=== PATIENT | male | born 1935 | race Caucasian/White ===

== ENCOUNTER 2016-12-21 21:11 | Observation (INO) | payer MEDICARE, OTHER ==
[2016-12-21] MEDS ORDERED: DILTIAZEM HCL 5 MG/ML VIAL IV ONE ×3 (21:42→23:49)
--- NOTE | 2016-12-21 21:44 | ERNOTE ---
Dyspnea - General Presenting Symptoms: shortness of breath Time Seen by Provider: 12/21/16 21:35 Source: patient Exam Limitations: no limitations - Immun/Allergies/Home Medications Immunizations: IMMUNIZATION HX Immunizations Up to Date Yes History of Influenza Vaccine Yes Allergies/Adverse Reactions: Allergies No Known Allergies Allergy (Verified 12/26/16 06:57) Home Medications: HOME MEDICATIONS Omeprazole [Prilosec] 40 mg PO DAILY 09/18/15 [Last Taken Unknown] Simvastatin [Zocor] 40 mg PO HS 09/18/15 [Last Taken Unknown] Tamsulosin HCl [Flomax] 0.4 mg PO BID 09/18/15 [Last Taken Unknown] Tiotropium [place] [Spiriva] 1 cap IH DAILY 09/18/15 [Last Taken Unknown] Acetaminophen [Tylenol] 650 mg PO QID PRN #1 tablet 09/22/15 [Last Taken Unknown ] Finasteride [Proscar] 5 mg PO DAILY 12/21/16 [Last Taken Unknown] Losartan Potassium [Cozaar] 25 mg PO DAILY 12/21/16 [Last Taken Unknown] Amiodarone HCl [Cordarone] 2 tab PO TID #100 tablet 12/22/16 [Last Taken Unknown ] Budesonide [Pulmicort Respules] 0.25 mg IH BIDRT vial.[facility] 12/22/16 [Last Taken Unknown] Carvedilol [Coreg] 25 mg PO BID #60 tablet 12/22/16 [Last Taken Unknown] Fluticasone Propionate [Flonase] 1 spray NS DAILY 12/22/16 [Last Taken Unknown] Ipratropium [place] [Atrovent] 0.5 mg IH Q6HRT vial.[facility] 12/22/16 [Last Taken Unknown] Vardenafil HCl [Levitra] 20 mg PO DAILY 12/22/16 [Last Taken Unknown] Warfarin Sodium [Jantoven] 5 mg PO SUTUWEFRSA 12/22/16 [Last Taken Unknown] Warfarin Sodium [Jantoven] 6 mg PO MOTH 12/22/16 [Last Taken Unknown] Azithromycin [Zithromax] 500 mg PO NOW #6 tab 12/26/16 [Last Taken Unknown] Furosemide [Lasix] 40 mg PO DAILY #30 tablet 12/26/16 [Last Taken Unknown] predniSONE [Prednisone] 3 tab PO BID #30 tab 12/26/16 [Last Taken Unknown] - History of Present Illness Narrative: increasing shortness of breath over 2-3 days. "feels like I'm under water" Severity: moderate Initiating event: Reports: unknown Frequency of episodes: Reports: occassional episodes Modifying Factors (Worsens): Reports: activity Associated Symptoms-Dyspnea: Denies: chest pain/discomfort Review of Systems - Review of Systems Constitutional: Absent: recent illness, fever EYE: Present: no symptoms reported ENT: Present: no symptoms reported Respiratory: Present: shortness of breath. Absent: cough Cardiology: Absent: chest pain, palpitations Gastrointestinal/Abdominal: Absent: nausea, vomiting Genitourinary: Present: no symptoms reported Musculoskeletal: Present: no symptoms reported Skin: Present: no symptoms reported Neurological: Present: no symptoms reported Endocrine: Present: no symptoms reported Hematologic/Lymphatic: Present: no symptoms reported Psych: Present: no symptoms reported - Patient's Past Medical History Patient History - Medical: GERD Patient History - Cardiac/Respiratory: COPD Patient History - Cancer: Prostate Patient History - Surgical Procedures: Cataracts, Colonoscopy, T & A, Other - TURP, radium implants into prostate gland. Patient History - Other: None - Family History Mother Family History - Medical: Family History - Cardiac/Respiratory: Hypertension Father Family History - Medical: , Alzheimer's Disease - Social History Living Situations: spouse Abuse History: No History of abuse Psych History: No pertinent hx Smoking Status: Former smoker Alcohol Use: none Drug Use: none - Immunizations Immunizations Up to Date: Yes History of Influenza Vaccine: Yes Physical Exam - Physical Exam General Appearance: Present: wd/wn, alert, mild distress Eye Exam: Normal inspection: bilateral Ears, Nose, Throat: Present: normal ENT inspection, normal pharynx Neck: Present: normal inspection, nontender, supple Respiratory: Present: no respiratory distress, lungs clear Cardiovascular/Chest: Present: tachycardia, irregularly irregular Gastrointestinal/Abdominal: Present: normal bowel sounds, nontender, nondistended, soft Back Exam: Present: normal inspection, normal range of motion Extremity Exam: Present: normal inspection, non-tender, no edema Neurological Exam: Present: alert, oriented, no motor/sensory deficits Skin Exam: Present: normal color, warm/dry ED Progress - Results and Orders Patient's Lab Results:: I have reviewed the patient's lab results. Results and Orders: Laboratory Tests 12/21/16 12/21/16 21:45 21:53 WBC 11.9 H Hgb 12.2 L Hct 36.8 L Plt Count 206 Neutrophils % 78.6 H Sodium 140 Potassium 4.6 Chloride 105 Carbon Dioxide 24.4 Anion Gap 15.2 H BUN 27 H Creatinine 1.28 Est GFR (Non-Af Amer) 57 L BUN/Creatinine Ratio 21.1 Random Glucose 161 H Calcium 8.8 Total Bilirubin 1.0 AST 22 ALT 33 Alkaline Phosphatase 63 Troponin I Less than 0.017 B-Natriuretic Peptide 6034 H Total Protein 6.9 Albumin 3.7 - Vital Signs Patient's Vital Signs:: I have reviewed the patient's vital signs. Vital Signs: Vital Signs 12/21/16 21:17 Temperature 36.8 C Pulse Rate 155 H Respiratory 32 H Rate Blood Pressure 116/89 O2 Sat by Pulse 90 Oximetry - EKG EKG: atrial fibrillation - w/ RVR at 110-130, LBBB EKG read: Interp. by me - Progress/Reassessment Chief Complaint: Dyspnea Progress:: Improved Progress Note-Subjective: 12/21/16 21:54 Vardenafil interaction with cardizem was reported upon ordering cardizem. pt states he hasn't taken the vardenafil for weeks. BP has decreased from presentation. Cardizem order put on hold, 500 mL bolus ordered 12/21/16 23:55 Pt's blood pressure has been running 90-100/ 40's HR getting up to 150's at times and down to 110's. Will give 5 mg cardizem and monitor BP and HR. 12/22/16 00:10 12/22/16 00:19 BP 109/52 hr 85-100. spoke with Frank WATSONP hospitalist. she agrees with SCU admit for the patient 12/28/16 06:14 Departure Clinical Impression: Atrial fibrillation Qualifiers: Atrial fibrillation type: paroxysmal Qualified Code(s): I48.0 - Paroxysmal atrial fibrillation - Departure Condition: Good
--- OUTSIDE RECORDS SUMMARY | 2016-12-21 21:49 | XMS REPORT | Continuity of Care Document ---
:1935 Author Organization [facility] ([facility]) Address [address] [place] [address] Phone [phone] Care Team Providers Name Role Phone Frantz Patricio Primary Care Provider [phone] Source Comments This disclosure is being made pursuant to the Care Everywhere program, applicable federal and state laws, and may not contain all informaitonavailable regarding this patient.[facility] ([facility]) Active Allergies and Adverse Reactions Allergen Noted Date Severity Reactions Comments No Known Drug Allergies 12/09/2008 Current Medications Prescription Sig. Disp. Refills Start Date End Date Status ATENOLOL PO Take 25 mg by mouth 2 Active times daily. TIOTROPIUM BROMIDE use by inhalation at Active (SPIRIVA WITH bedtime. HANDIHALER INH) diltiazem 240 mg ER Take 240 mg by mouth Active capsule daily. fluticasone (FLONASE) use 1 [place] into the Active 50 mcg/Actuation nasal nose 2 times daily. spray fluticasone (FLOVENT Use 1 Puff by Active HFA) 220 mcg/actuation inhalation every 12 inhaler hours as needed. losartan 50 mg tablet Take 50 mg by mouth Active daily. tadalafil (CIALIS) 20 Take 20 mg by mouth Active mg tablet as needed. Indications: Erectile Dysfunction simvastatin 40 mg Take 40 mg by mouth Active tablet every evening. tamsulosin 0.4 mg ER Take 0.4 mg by mouth Active capsule daily. finasteride (PROSCAR) 5 Take 5 mg by mouth Active mg tablet daily. Active Problems Problem Noted Date Erectile dysfunction 11/04/2011 Prostate cancer 11/04/2011 Retinal detachment, left 07/31/2009 Glaucoma 05/02/2009 Cystoid macular edema 04/16/2009 Overview: Formatting of this note may be different from the original. 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 02/13/2008 Social History Tobacco Use Types Packs/Day Years Used Date Former Smoker 1 50 Quit: 08/14/1994 Comments:emphazema Alcohol Use Drinks/Week oz/Week Comments Yes 4 Cans of beer 2.0 Last Filed Vital Signs Vital Sign Reading Time Taken Blood Pressure 105/74 04/04/2012 1:38 PM CDT Pulse 76 04/04/2012 1:38 PM CDT Temperature 36.6 C (97.9 F) 04/04/2012 1:38 PM CDT Respiratory Rate 20 04/04/2012 1:38 PM CDT Height 1.676 m (5' 6") 04/04/2012 1:38 PM CDT Weight 79.379 kg (175 lb) 04/04/2012 1:38 PM CDT Body Mass Index 28.26 04/04/2012 1:38 PM CDT Oxygen Saturation 91% 04/04/2012 1:38 PM CDT Plan of Care Health Maintenance Due Date Last Done Comments Hepatitis B Vaccine (1 of 3 - Primary Series) 1935 Tdap Vaccine 1944 Lipid Disorder Screening 1951 Td Vaccine 1953 Colonoscopy 1983 Zoster Vaccine 1993 Pneumococcal Vaccine (1 of 2 - PCV13) 1998 Influenza Vaccine: Seasonal (#1) 03/14/2016 Results from Last 3 Months Not on file
[2016-12-21 21:53] LABS: Hematocrit 36.8 % (42.0-52.0); Hemoglobin 12.2 gm/dL (13.5-18.0); Mean Cell Volume 87.2 fl (78-100); Mean Corpuscular Hemoglobin 28.9 pg (27-31); Mean Corpuscular Hgb Conc 33.2 g/dl (32-36); Mean Platelet Volume 10.5 fl (6.0-9.5); Neutrophil # 9.3 K/mm3 (1.3-6.0); Neutrophil % 78.6 % (42-75.0); Platelet Count 206 K/mm3 (150-450); Red Blood Count 4.22 M/mm3 (4.7-6.0); Red Cell Distribution Width 13.6 % (11.5-14.0); White Blood Count 11.9 K/mm3 (4.0-10.5)
[2016-12-21] MEDS ORDERED: NORMAL SALINE 500 ML IV ONE ×2 (21:57→22:34)
[2016-12-21 22:15] LABS: ALT 33 U/L (19-67); AST 22 U/L (0-48); Albumin * 3.7 gm/dl (3.4-5.0); Alkaline Phosphatase * 63 U/L (50-170); Anion Gap 15.2 mmol/L (6.8-13.8); BNP * 6034 pg/mL (5-650); BUN/Creatinine Ratio 21.1 (9.0-21.6); Blood Urea Nitrogen 27 mg/dL (6-23); Ca. Corrected For Albumin 8.7 mg/dL (8.4-10.2); Calcium * 8.8 mg/dL (7.9-10.9); Carbon Dioxide 24.4 mmol/L (24-32.6); Chloride 105 mmol/L (97-106); Glucose * 161 mg/dL (70-110); Potassium 4.6 mmol/L (3.4-4.6); Sodium 140 mmol/L (132-142); Total Protein 6.9 gm/dL (6.2-8.2)
[2016-12-21 22:17] LABS: Troponin I Less than 0.017 ng/ml (0.00-0.10)
[2016-12-22] MEDS ORDERED: DILTIAZEM HCL 125 MG in DEXTROSE 5 % IN WATER 100 ML IV PRN ×2 (00:07)
--- OUTSIDE RECORDS SUMMARY | 2016-12-22 00:33 | XMS REPORT | Continuity of Care Document ---
:1935 Author Organization [facility] ([facility]) Address [address] [place] [address] Phone [phone] Care Team Providers Name Role Phone Frantz Patricio Primary Care Provider [phone] Source Comments This disclosure is being made pursuant to the Care Everywhere program, applicable federal and state laws, and may not contain all informaitonavailable regarding this patient.[facility] ([facility]) Active Allergies and Adverse Reactions Allergen [...] Active capsule daily. fluticasone (FLONASE) use 1 [place] into the Active 50 mcg/Actuation nasal nose [...]
[2016-12-22] MEDS ORDERED: FUROSEMIDE 10 MG/ML VIAL IV STA (02:10)
[2016-12-22] MEDS ORDERED: FUROSEMIDE 10 MG/ML VIAL ONE (02:10)
[2016-12-22] MEDS ORDERED: ALBUTEROL SULFATE/IPRATROPIUM 3 ML NEBU IH STA (02:16)
--- NOTE | 2016-12-22 02:48 | HP ---
<Mayito Joel - Last Filed: 12/22/16 03:54> Chief Complaint - Chief Complaint Date of Service: 12/22/16 Time of Service: 02:40 Chief Complaint: shortness of breath cough, wheezing History of Present Illness: 81 years old male adm to the hospital with reports of shortness of breath on exertion, productive cough with clear sputum and wheezing that have gotten worst over the past few days. pt stated he usually play pool for about 4 hours, but lately he hardly can continue for an hour or less.It has gotten much harder to breath and talk, he has used his inhalers at home without relief. He got concern because the breathing got worst so he came to the ER. In ER EKG_ A-fib RVR, he was initiated on cardizem drip cardiac markers negative x1, BNP > 6K, BUN/ Cre 27/1.28. On adm he was in respiratory distress and reported not been able to breath. CXR: Pulmonary edema, he was given total Lasix 60 mg IV x1 with 750ml urine in 1 hr, supplemented oxygen and nebulizer treatment with Atrovent and pulmicort. Plan discussed with assembler semiconductor attending. PMH significant for CHF, A -fib (on Coumadin), COPD, CKD III. Plan of care discussed with pt he verbalized understanding and agrees. - Patient's Past Medical History Patient History - Medical: GERD, Renal Failure - stage III, Other - BPH Patient History - Cardiac/Respiratory: Atrial Fibrillation - on coumadin, Asthma , CHF - 09/30 2 d Echo EF45-50%, COPD, Home O2 Use Patient History - Cancer: Prostate Patient History - Surgical Procedures: Cataracts, Colonoscopy, T & A, Other - TURP radiation implant into prostate gland Patient History - Other: None - Family History Mother Family History - Medical: Family History - Cardiac/Respiratory: Hypertension Father Family History - Medical: , Alzheimer's Disease - Social History Living Situations: alone Abuse History: No History of abuse Psych History: No pertinent hx Smoking Status: Former smoker Have you smoked in the past 12 months: No Alcohol Use: none Drug Use: none - Immunizations Immunizations Up to Date: Yes History of Influenza Vaccine: Yes Review Of Systems (GEN) - Review of Systems Generalized/Overall Review: Present: No Symptoms Reported EENTM: Present: No Symptoms Reported Respiratory: Present: Cough, Shortness of Breath, Orthopnea, Wheezing Cardiac: Present: Edema - Trace BLLE Abdominal: Present: No Symptoms Reported Genitourinary: Present: No Symptoms Reported Musculoskeletal: Present: No Symptoms Reported Neurological: Present: No Symptoms Reported Skin: Present: No Symptoms Reported Endocrine: Present: No Symptoms Reported Allergies/Adverse Reactions: Allergies Allergy/AdvReac Type Severity Reaction Status Date / Time No Known Allergies Allergy Verified 10/09/15 18:57 Home Medications: HOME MEDICATIONS Omeprazole [Prilosec] 40 mg PO DAILY 09/18/15 [Last Taken Unknown] Simvastatin [Zocor] 40 mg PO HS 09/18/15 [Last Taken Unknown] Tamsulosin HCl [Flomax] 0.4 mg PO BID 09/18/15 [Last Taken Unknown] Tiotropium [place] [Spiriva] 1 cap IH DAILY 09/18/15 [Last Taken Unknown] Acetaminophen [Tylenol] 650 mg PO QID PRN #1 tablet 09/22/15 [Last Taken Unknown ] Carvedilol [Coreg] 25 mg PO BID 12/21/16 [Last Taken Unknown] Finasteride [Proscar] 5 mg PO DAILY 12/21/16 [Last Taken Unknown] Losartan Potassium [Cozaar] 25 mg PO DAILY 12/21/16 [Last Taken Unknown] Fluticasone Propionate [Flonase] 1 spray NS DAILY 12/22/16 [Last Taken Unknown] Warfarin Sodium [Jantoven] 5 mg PO SUTUWEFRSA 12/22/16 [Last Taken Unknown] Warfarin Sodium [Jantoven] 6 mg PO MOTH 12/22/16 [Last Taken Unknown] Exam - Exam Vital Signs: Vital Signs - Last Taken Temp 36.6 C 12/22/16 01:27 Pulse 130 H 12/22/16 02:29 Resp 25 H 12/22/16 02:29 BP 135/91 12/22/16 01:27 Pulse Ox 91 12/22/16 02:24 Constitutional: Present: Alert, Oriented x3, Cooperative, Well developed, Acute distress, Elderly ENT Exam: Present: moist mucous membranes Eye Exam: bilateral eye: PERRL Neck: Present: non-tender Back Exam: Present: normal inspection Breasts: Present: Exam deferred Respiratory: Present: respiratory distress, wheezing Cardiovascular/Chest: Present: normal peripheral pulses, tachycardia, irregularly irregular, edema Peripheral Pulses: dorsalis-pedis (R): 3+, dorsalis-pedis (L): 3+ Abdomen: Present: Normal bowel sounds, soft, nontender, nondistended /Rectal: Present: Exam deferred Extremity: Present: normal range of motion, non-tender, normal inspection, lower extremity edema - Trace, pedal edema Skin Exam: Present: normal color, warm/dry, no cyanosis Neurologic: Present: oriented x 3 Appearance: Present: appropriate appearance Eye contact: Present: cooperative Thoughts: Present: normal thought pattern, no apparent hallucination Diagnostic Studies: Laboratory Results WBC 11.9 K/mm3 (4.0-10.5) H 12/21/16 21:45 RBC 4.22 M/mm3 (4.7-6.0) L 12/21/16 21:45 Hgb 12.2 gm/dL (13.5-18.0) L 12/21/16 21:45 Hct 36.8 % (42.0-52.0) L 12/21/16 21:45 MCV 87.2 fl (78-100) 12/21/16 21:45 MCH 28.9 pg (27-31) 12/21/16 21:45 MCHC 33.2 g/dl (32-36) 12/21/16 21:45 RDW 13.6 % (11.5-14.0) 12/21/16 21:45 Plt Count 206 K/mm3 (150-450) 12/21/16 21:45 MPV 10.5 fl (6.0-9.5) H 12/21/16 21:45 Immature Gran % (Auto) 0.30 % (0.001-0.429) 12/21/16 21:45 Immature Gran # (Auto) 0.04 K/mm3 (0.000-0.0310) H 12/21/16 21:45 Neutrophils % 78.6 % (42-75.0) H 12/21/16 21:45 Lymphocytes % 11.5 % (20-51) L 12/21/16 21:45 Monocytes % 7.8 % (0.0-9) 12/21/16 21:45 Eosinophils % 1.3 % (0.0-3.0) 12/21/16 21:45 Basophils % 0.5 % (0.0-1.0) 12/21/16 21:45 Nucleated RBC % 0.0 k/mm3 (0-1) 12/21/16 21:45 Neutrophils # 9.3 K/mm3 (1.3-6.0) H 12/21/16 21:45 Lymphocytes # 1.4 k/mm3 (1.5-3.5) L 12/21/16 21:45 Monocytes # 0.9 k/mm3 (0.0-1.0) 12/21/16 21:45 Eosinophils # 0.2 k/mm3 (0.0-0.7) 12/21/16 21:45 Absolute Basophils 0.1 k/mm3 (0.0-0.1) 12/21/16 21:45 Sodium 140 mmol/L (132-142) 12/21/16 21:53 Plasma Sodium 141 mmol/L (130-142) 12/21/16 21:53 Potassium 4.6 mmol/L (3.4-4.6) 12/21/16 21:53 Chloride 105 mmol/L (97-106) 12/21/16 21:53 Carbon Dioxide 24.4 mmol/L (24-32.6) 12/21/16 21:53 Anion Gap 15.2 mmol/L (6.8-13.8) H 12/21/16 21:53 BUN 27 mg/dL (6-23) H 12/21/16 21:53 Creatinine 1.28 mg/dL (0.4-1.4) 12/21/16 21:53 Est GFR (Non-Af Amer) 57 mL/min (60-130) L 12/21/16 21:53 BUN/Creatinine Ratio 21.1 (9.0-21.6) 12/21/16 21:53 Random Glucose 161 mg/dL (70-110) H 12/21/16 21:53 Calcium 8.8 mg/dL (7.9-10.9) 12/21/16 21:53 Calcium Adj for Albumin 8.7 mg/dL (8.4-10.2) 12/21/16 21:53 Total Bilirubin 1.0 mg/dL (0.0-1.1) 12/21/16 21:53 AST 22 U/L (0-48) 12/21/16 21:53 ALT 33 U/L (19-67) 12/21/16 21:53 Alkaline Phosphatase 63 U/L (50-170) 12/21/16 21:53 Troponin I Less than 0.017 ng/ml (0.00-0.10) 12/21/16 21:53 B-Natriuretic Peptide 6034 pg/mL (5-650) H 12/21/16 21:53 Total Protein 6.9 gm/dL (6.2-8.2) 12/21/16 21:53 Albumin 3.7 gm/dl (3.4-5.0) 12/21/16 21:53 CXR: Diffused prominence of the interstitial markings suggesting interstitial edema. Assessment/Plan - Narrative Narrative: Acute on chronic CHF exacerbation Lasix 40mg x1 BP 131/80 On adm BNP >6K, Bun/Cre 27/1.28 Trace Bilateral LLE edema CXR: Pulmonary edema Strict I/O and weight pt daily. Supplemented oxygen A-fib RVR Cardizem drip Digoxin 0.25mg x1 Monitor on telemetry Troponin on adm 0.017, continue to monitor Monitor INR daily and pharmacy to dose and resume Coumadin Acute on chronic COPD exacerbation Atrovent treatment in presence of uncontrolled HR Supplemented oxygen and Pulmicort BID Will consider solumedrol if no improvement with Lasix for diuresis, in presence of pulmonary edema and CHF exacerbation. Acute on chronic Pulmonary edema- seen on CXR Plan same as #1,#2 and #3 CKD III On adm Bun/Cre 27/1.28, currently at baseline Monitor CMP in the morning Code status: DNR VTE ppx: Coumadin therapeutic use GI ppx: protonix Anticipate discharge home 2-4d days Time 45 minutes and previous records reviewed. - Assessment/Plan (1) Systolic CHF, acute on chronic Problem: Acute (2) Acute worsening of stage 3 chronic kidney disease Problem: Chronic (3) Atrial fibrillation with RVR Problem: Acute (4) Pulmonary edema Problem: Chronic (5) COPD (chronic obstructive pulmonary disease) Problem: Chronic QualifierTitle: COPD type: chronic bronchitis Chronic bronchitis type: simple Qualified Code(s): J41.0 - Simple chronic bronchitis <Frantz Cardenas - Last Filed: 12/22/16 16:21> Immunizations: IMMUNIZATION HX Immunizations Up to Date Yes History of Influenza Vaccine Yes Exam - Exam Vital Signs: Vital Signs - Last Taken Temp 36.3 C L 12/22/16 11:00 Pulse 81 12/22/16 11:00 Resp 24 H 12/22/16 11:00 BP 115/60 12/22/16 11:00 Pulse Ox 93 12/22/16 11:00 Diagnostic Studies: Abnormal Lab Results 12/22/16 12/22/16 12/22/16 Range/Units 05:35 05:35 05:35 WBC 12.7 H (4.0-10.5) K/mm3 RBC 4.19 L (4.7-6.0) M/mm3 Hgb 11.8 L (13.5-18.0) gm/dL Hct 36.3 L (42.0-52.0) % MPV 10.7 H (6.0-9.5) fl Immature Gran # (Auto) 0.04 H (0.000-0.0310) K/mm3 Neutrophils % 82.7 H (42-75.0) % Lymphocytes % 8.5 L (20-51) % Neutrophils # 10.5 H (1.3-6.0) K/mm3 Lymphocytes # 1.1 L (1.5-3.5) k/mm3 PT 26.0 H (9.4-11.4) Seconds INR (Anticoag Therapy) 2.50 H (0.90-1.10) INR Carbon Dioxide 23.4 L (24-32.6) mmol/L Anion Gap 15.5 H (6.8-13.8) mmol/L BUN 26 H (6-23) mg/dL Est GFR (Non-Af Amer) 59 L (60-130) mL/min Random Glucose 142 H (70-110) mg/dL Total Bilirubin 1.5 H (0.0-1.1) mg/dL B-Natriuretic Peptide 7937 H (5-650) pg/mL Total Protein 6.1 L (6.2-8.2) gm/dL Albumin 3.3 L (3.4-5.0) gm/dl Laboratory Results WBC 12.7 K/mm3 (4.0-10.5) H 12/22/16 05:35 RBC 4.19 M/mm3 (4.7-6.0) L 12/22/16 05:35 Hgb 11.8 gm/dL (13.5-18.0) L 12/22/16 05:35 Hct 36.3 % (42.0-52.0) L 12/22/16 05:35 MCV 86.6 fl (78-100) 12/22/16 05:35 MCH 28.2 pg (27-31) 12/22/16 05:35 MCHC 32.5 g/dl (32-36) 12/22/16 05:35 RDW 13.8 % (11.5-14.0) 12/22/16 05:35 Plt Count 208 K/mm3 (150-450) 12/22/16 05:35 MPV 10.7 fl (6.0-9.5) H 12/22/16 05:35 Immature Gran % (Auto) 0.30 % (0.001-0.429) 12/22/16 05:35 Immature Gran # (Auto) 0.04 K/mm3 (0.000-0.0310) H 12/22/16 05:35 Neutrophils % 82.7 % (42-75.0) H 12/22/16 05:35 Lymphocytes % 8.5 % (20-51) L 12/22/16 05:35 Monocytes % 7.9 % (0.0-9) 12/22/16 05:35 Eosinophils % 0.2 % (0.0-3.0) 12/22/16 05:35 Basophils % 0.4 % (0.0-1.0) 12/22/16 05:35 Nucleated RBC % 0.0 k/mm3 (0-1) 12/22/16 05:35 Neutrophils # 10.5 K/mm3 (1.3-6.0) H 12/22/16 05:35 Lymphocytes # 1.1 k/mm3 (1.5-3.5) L 12/22/16 05:35 Monocytes # 1.0 k/mm3 (0.0-1.0) 12/22/16 05:35 Eosinophils # 0.0 k/mm3 (0.0-0.7) 12/22/16 05:35 Absolute Basophils 0.1 k/mm3 (0.0-0.1) 12/22/16 05:35 PT 26.0 Seconds (9.4-11.4) H 12/22/16 05:35 INR (Anticoag Therapy) 2.50 INR (0.90-1.10) H 12/22/16 05:35 Sodium 140 mmol/L (132-142) 12/22/16 05:35 Plasma Sodium 141 mmol/L (130-142) 12/22/16 05:35 Potassium 3.9 mmol/L (3.4-4.6) 12/22/16 05:35 Chloride 105 mmol/L (97-106) 12/22/16 05:35 Carbon Dioxide 23.4 mmol/L (24-32.6) L 12/22/16 05:35 Anion Gap 15.5 mmol/L (6.8-13.8) H 12/22/16 05:35 BUN 26 mg/dL (6-23) H 12/22/16 05:35 Creatinine 1.24 mg/dL (0.4-1.4) 12/22/16 05:35 Est GFR (Non-Af Amer) 59 mL/min (60-130) L 12/22/16 05:35 BUN/Creatinine Ratio 21.0 (9.0-21.6) 12/22/16 05:35 Random Glucose 142 mg/dL (70-110) H 12/22/16 05:35 Calcium 8.7 mg/dL (7.9-10.9) 12/22/16 05:35 Calcium Adj for Albumin 8.9 mg/dL (8.4-10.2) 12/22/16 05:35 Total Bilirubin 1.5 mg/dL (0.0-1.1) H 12/22/16 05:35 AST 23 U/L (0-48) 12/22/16 05:35 ALT 33 U/L (19-67) 12/22/16 05:35 Alkaline Phosphatase 63 U/L (50-170) 12/22/16 05:35 Troponin I Less than 0.017 ng/ml (0.00-0.10) 12/21/16 21:53 B-Natriuretic Peptide 7937 pg/mL (5-650) H 12/22/16 05:35 Total Protein 6.1 gm/dL (6.2-8.2) L 12/22/16 05:35 Albumin 3.3 gm/dl (3.4-5.0) L 12/22/16 05:35 Assessment/Plan - Narrative Narrative: This has been recurrent a fib, and now that he is back in his normal rhythm, he feels fine. We will try amiodaraone in the hope we can prevent further episodes. I directed all of the nurse practitioner hospitalist's care for this patient. - Assessment/Plan (1) Atrial fibrillation with RVR Problem: Acute (2) Systolic CHF, acute on chronic Problem: Acute (3) COPD (chronic obstructive pulmonary disease) Problem: Chronic Qualifiers: COPD type: chronic bronchitis Chronic bronchitis type: simple Qualified Code(s): J41.0 - Simple chronic bronchitis (4) Chronic rhinitis Problem: Chronic (5) GERD (gastroesophageal reflux disease) Problem: Chronic Qualifiers: Esophagitis presence: without esophagitis Qualified Code(s): K21.9 - Gastro -esophageal reflux disease without esophagitis (6) Hyperlipidemia Problem: Chronic (7) Hypertension Problem: Chronic Qualifiers: Hypertension type: essential hypertension Qualified Code(s): I10 - Essential (primary) hypertension (8) Hypoxemic respiratory failure, chronic Problem: Chronic (9) Prostate CA Problem: Chronic (10) Pulmonary hypertension Problem: Chronic
[2016-12-22] MEDS ORDERED: DIGOXIN 0.25 MG/ML AMPUL IV ONE (03:03)
[2016-12-22] MEDS ORDERED: FUROSEMIDE 10 MG/ML VIAL IV ONE ×2 (03:03)
[2016-12-22] MEDS ORDERED: BUDESONIDE 0.25 MG/2 ML VIAL.NEB IH SCH ×2 (03:04→07:00)
[2016-12-22] MEDS ORDERED: IPRATROPIUM BROMIDE 0.5 MG/2.5 ML VIAL.NEB IH SCH (03:15)
[2016-12-22 05:44] LABS: Hematocrit 36.3 % (42.0-52.0); Hemoglobin 11.8 gm/dL (13.5-18.0); Mean Cell Volume 86.6 fl (78-100); Mean Corpuscular Hemoglobin 28.2 pg (27-31); Mean Corpuscular Hgb Conc 32.5 g/dl (32-36); Mean Platelet Volume 10.7 fl (6.0-9.5); Neutrophil # 10.5 K/mm3 (1.3-6.0); Neutrophil % 82.7 % (42-75.0); Platelet Count 208 K/mm3 (150-450); Red Blood Count 4.19 M/mm3 (4.7-6.0); Red Cell Distribution Width 13.8 % (11.5-14.0); White Blood Count 12.7 K/mm3 (4.0-10.5)
[2016-12-22 06:01] LABS: INR 2.5 INR (0.90-1.10)
[2016-12-22 06:05] LABS: Albumin * 3.3 gm/dl (3.4-5.0); Anion Gap 15.5 mmol/L (6.8-13.8); Bilirubin, Total 1.5 mg/dL (0.0-1.1); Ca. Corrected For Albumin 8.9 mg/dL (8.4-10.2); Calcium * 8.7 mg/dL (7.9-10.9); Carbon Dioxide 23.4 mmol/L (24-32.6); Potassium 3.9 mmol/L (3.4-4.6); Total Protein 6.1 gm/dL (6.2-8.2)
[2016-12-22] MEDS ORDERED: ACETAMINOPHEN 325 MG TABLET PO PRN (06:37)
[2016-12-22] MEDS ORDERED: PANTOPRAZOLE SODIUM 40 MG TABLET.EC PO SCH (07:00)
[2016-12-22] MEDS: IPRATROPIUM BROMIDE 0.5 MG/2.5 ML VIAL.NEB IH SCH ×2 (07:52→13:21)
[2016-12-22] MEDS ORDERED: LOSARTAN POTASSIUM 50 MG TABLET PO SCH (09:00)
[2016-12-22] MEDS ORDERED: FINASTERIDE 5 MG TABLET PO SCH (09:00)
[2016-12-22] MEDS ORDERED: VARDENAFIL PO SCH (09:00)
[2016-12-22] MEDS ORDERED: TIOTROPIUM BROMIDE 5 CAP INHALER IH SCH (09:00)
[2016-12-22] MEDS ORDERED: TAMSULOSIN HCL 0.4 MG CAP.SR.24H PO SCH (09:00)
[2016-12-22] MEDS ORDERED: CARVEDILOL 12.5 MG TABLET PO SCH (09:00)
[2016-12-22] MEDS ORDERED: BUDESONIDE 0.5 MG/2 ML VIAL.NEB IH SCH (09:00)
[2016-12-22 11:55] VITALS: BP 115/60
--- NOTE | 2016-12-22 14:50 | DS ---
(1) Atrial fibrillation with RVR Problem: Acute (2) Systolic CHF, acute on chronic Problem: Acute (3) COPD (chronic obstructive pulmonary disease) Problem: Chronic Qualifiers: COPD type: chronic bronchitis Chronic bronchitis type: simple Qualified Code(s): J41.0 - Simple chronic bronchitis (4) Chronic rhinitis Problem: Chronic (5) GERD (gastroesophageal reflux disease) Problem: Chronic Qualifiers: Esophagitis presence: without esophagitis Qualified Code(s): K21.9 - Gastro -esophageal reflux disease without esophagitis (6) Hyperlipidemia Problem: Chronic (7) Hypertension Problem: Chronic Qualifiers: Hypertension type: essential hypertension Qualified Code(s): I10 - Essential (primary) hypertension (8) Hypoxemic respiratory failure, chronic Problem: Chronic (9) Prostate CA Problem: Chronic (10) Pulmonary hypertension Problem: Chronic Description of Stay: Recurrent A fib. Therapeutic INR. IV diltiazem given. Back in sinus rhythm. Off of diltiazem. Now that he is back in sinus rhythm, he feels fine. Will discharge home with oral amiodarone loading. Although his BNP and wbc went up today, his vitals are stable and he is clinically fine on exam. Procedures Performed: none Discharge Disposition: Home self care Disposition: Home self-care Condition: Good Discharge Activity: Activity as tolerated Discharge Diet: Low salt Referrals: Frantz Cardenas MD [Primary Care Provider] - Problem Oriented Discharge Instructions to Patient/Family: Atrial Fibrillation , [id number], Heart Failure, Push-[id number], CHF Patient Instructions Additional Patient Instructions (free text): Follow up appointment with Dr. Cardenas Monday12/26/16 at 1:00 PM CBC BMP TSH free T4 Protime blood tests on Monday12/26/16 Prescriptions (Any new or edited meds): Amiodarone HCl [Cordarone] 2 tab PO TID #100 tablet Carvedilol [Coreg] 25 mg PO BID #60 tablet Complete Home Medications List: Complete Home Medication List: Omeprazole [Prilosec] 40 mg PO DAILY 09/18/15 Simvastatin [Zocor] 40 mg PO HS 09/18/15 Tamsulosin HCl [Flomax] 0.4 mg PO BID 09/18/15 Tiotropium [place] [Spiriva] 1 cap IH DAILY 09/18/15 Acetaminophen [Tylenol] 650 mg PO QID PRN #1 tablet 09/22/15 Finasteride [Proscar] 5 mg PO DAILY 12/21/16 Losartan Potassium [Cozaar] 25 mg PO DAILY 12/21/16 Amiodarone HCl [Cordarone] 2 tab PO TID #100 tablet 12/22/16 Budesonide [Pulmicort Respules] 0.25 mg IH BIDRT vial.[facility] 12/22/16 Carvedilol [Coreg] 25 mg PO BID #60 tablet 12/22/16 Fluticasone Propionate [Flonase] 1 spray NS DAILY 12/22/16 Ipratropium [place] [Atrovent] 0.5 mg IH Q6HRT vial.[facility] 12/22/16 Vardenafil HCl [Levitra] 20 mg PO DAILY 12/22/16 Warfarin Sodium [Jantoven] 5 mg PO SUTUWEFRSA 12/22/16 Warfarin Sodium [Jantoven] 6 mg PO MOTH 12/22/16
[2016-12-22] MEDS ORDERED: WARFARIN SODIUM 5 MG TABLET PO SCH (17:00)
[2016-12-22] MEDS ORDERED: SIMVASTATIN 40 MG TABLET PO SCH (21:00)
== END 2016-12-22 17:00 | disposition home or self-care (01) ==
LOC: ER 21:11 → INTOOBSV 12-22 00:29 → SCU 12-22 00:29
PROVIDERS: ADMIT Nurse Practitioner; ATTEND Allergy & Immunology
DX: I50.23 Acute on chronic systolic (congestive) heart failure (principal); I48.2 Chronic atrial fibrillation; Z79.01 Long term (current) use of anticoagulants; J44.0 Chronic obstructive pulmonary disease with (acute) lower respiratory infection; J20.9 Acute bronchitis, unspecified; J44.1 Chronic obstructive pulmonary disease with (acute) exacerbation; Z87.891 Personal history of nicotine dependence; I12.9 Hypertensive chronic kidney disease with stage 1 through stage 4 chronic kidney disease, or unspecified chronic kidney disease; N18.3 Chronic kidney disease, stage 3 (moderate); I50.1 Left ventricular failure, unspecified
CPT/HCPCS: 36415; 71010; 80053; 83880; 84484; 85025; 85610; 93005; 94640; 94760; 96365; 96366; 96375; 96376; 99283; G0378

== ENCOUNTER 2016-12-26 06:44 | Emergency (ER) | payer MEDICARE, OTHER ==
--- NOTE | 2016-12-26 06:58 | ERNOTE ---
<Xi Lara - Last Filed: 12/26/16 07:53> Medical Problem HPI - General Time Seen by Provider: 12/26/16 06:51 Source: patient Exam Limitations: no limitations - Immun/Allergies/Home Medications Immunizations: IMMUNIZATION HX Immunizations Up to Date Yes History of Influenza Vaccine Yes Allergies/Adverse Reactions: Allergies No Known Allergies Allergy (Verified 12/26/16 06:57) Home Medications: HOME MEDICATIONS Omeprazole [Prilosec] 40 mg PO DAILY 09/18/15 [Last Taken Unknown] Simvastatin [Zocor] 40 mg PO HS 09/18/15 [Last Taken Unknown] Tamsulosin HCl [Flomax] 0.4 mg PO BID 09/18/15 [Last Taken Unknown] Tiotropium [place] [Spiriva] 1 cap IH DAILY 09/18/15 [Last Taken Unknown] Acetaminophen [Tylenol] 650 mg PO QID PRN #1 tablet 09/22/15 [Last Taken Unknown ] Finasteride [Proscar] 5 mg PO DAILY 12/21/16 [Last Taken Unknown] Losartan Potassium [Cozaar] 25 mg PO DAILY 12/21/16 [Last Taken Unknown] Amiodarone HCl [Cordarone] 2 tab PO TID #100 tablet 12/22/16 [Last Taken Unknown ] Budesonide [Pulmicort Respules] 0.25 mg IH BIDRT vial.[facility] 12/22/16 [Last Taken Unknown] Carvedilol [Coreg] 25 mg PO BID #60 tablet 12/22/16 [Last Taken Unknown] Fluticasone Propionate [Flonase] 1 spray NS DAILY 12/22/16 [Last Taken Unknown] Ipratropium [place] [Atrovent] 0.5 mg IH Q6HRT vial.[facility] 12/22/16 [Last Taken Unknown] Vardenafil HCl [Levitra] 20 mg PO DAILY 12/22/16 [Last Taken Unknown] Warfarin Sodium [Jantoven] 5 mg PO SUTUWEFRSA 12/22/16 [Last Taken Unknown] Warfarin Sodium [Jantoven] 6 mg PO MOTH 12/22/16 [Last Taken Unknown] Azithromycin [Zithromax] 500 mg PO NOW #6 tab 12/26/16 [Last Taken Unknown] Furosemide [Lasix] 40 mg PO DAILY #30 tablet 12/26/16 [Last Taken Unknown] predniSONE [Prednisone] 3 tab PO BID #30 tab 12/26/16 [Last Taken Unknown] - History of Present History Narrative: This patient comes back to our emergency room with complaints of shortness of breath which began approximately 2 days ago but became severe this morning. States that he also has a cough. Denies any fevers or chills. He was recently diagnosed with atrial fibrillation and rapid ventricular response admitted to the ICU stabilized and discharged home. She denies any chest pains at this time however he did have left-sided chest pain yesterday Review of Systems - Review of Systems Constitutional: Present: no symptoms reported EYE: Present: no symptoms reported ENT: Present: no symptoms reported Respiratory: Present: See HPI Cardiology: Present: See HPI Gastrointestinal/Abdominal: Present: no symptoms reported Genitourinary: Present: no symptoms reported Musculoskeletal: Present: no symptoms reported Skin: Present: no symptoms reported - Patient's Past Medical History Patient History - Medical: GERD, Renal Failure - stage III, Other - BPH Patient History - Cardiac/Respiratory: Atrial Fibrillation - on coumadin, Asthma , CHF - 09/30 2 d Echo EF45-50%, COPD, Home O2 Use Patient History - Cancer: Prostate Patient History - Surgical Procedures: Cataracts, Colonoscopy, T & A, Other - TURP radiation implant into prostate gland Patient History - Other: None - Family History Mother Family History - Medical: Family History - Cardiac/Respiratory: Hypertension Father Family History - Medical: , Alzheimer's Disease - Social History Living Situations: alone Abuse History: No History of abuse Psych History: No pertinent hx Alcohol Use: none Drug Use: none - Immunizations Immunizations Up to Date: Yes History of Influenza Vaccine: Yes Physical Exam - Physical Exam General Appearance: Present: wd/wn, alert, mild distress - this patient is in mild respiratory distress oxygen saturation on room air is 86% Ears, Nose, Throat: Present: normal ENT inspection Neck: Present: normal inspection Respiratory: Present: no respiratory distress, lungs clear Cardiovascular/Chest: Present: no murmur, irregularly irregular Extremity Exam: Present: normal inspection, other - there is no edema Neurological Exam: Present: alert, oriented, normal mood/affect, no motor/ sensory deficits ED Progress - Results and Orders Patient's Lab Results:: I have reviewed the patient's lab results. - Vital Signs Patient's Vital Signs:: I have reviewed the patient's vital signs. - Transfer of Care Physician Sign Out: Xi Lara Receiving Physician: Curry Cantu Pending Results: CT/MRI results Expected Disposition: Admit, Discharge Plan - Plan Plan: This patient's BNP is greater than 3000, his d-dimer is also elevated Departure - Departure Clinical Impression: Shortness of breath CHF (congestive heart failure) Qualifiers: Congestive heart failure type: unspecified congestive heart failure type Congestive heart failure chronicity: chronic Qualified Code(s): I50.9 - Heart failure, unspecified COPD (chronic obstructive pulmonary disease) Qualifiers: COPD type: unspecified COPD Qualified Code(s): J44.9 - Chronic obstructive pulmonary disease, unspecified Disposition: Home Follow Up Needed Condition: Fair Instructions: Chronic Obstructive Pulmonary Disease, [id number]-[id number], Heart Failure, [id number] Additional Instructions: RECHECK WITH YOUR DR TOMORROW . ADD THE LASIX AND PREDNISONE AND Z PACK AT HOME PRESCRIBED. USE THE HOME O2 AT ALL TIMES IF FEELING SHORT OF BREATH. TAKE YOU WEIGHT DAILY AT ROUGHLY THE SAME TIME AND KEEP A RECORD OF IT FOR YOUR DOCTOR TO SEE. RETURN TO THE ER IF WORSE. Referrals: Frantz Cardenas MD [Primary Care Provider] - Prescriptions: Azithromycin [Zithromax] 500 mg PO NOW #6 tab Furosemide [Lasix] 40 mg PO DAILY #30 tablet predniSONE [Prednisone] 3 tab PO BID #30 tab <Curry Cantu - Last Filed: 12/26/16 11:36> Medical Problem HPI - Narrative Date of Service: 12/26/16 - General Source: family - Immun/Allergies/Home Medications Immunizations: IMMUNIZATION HX Immunizations Up to Date Yes History of Influenza Vaccine Yes ED Progress - Results and Orders Patient's Lab Results:: I have reviewed the patient's lab results. - Vital Signs Patient's Vital Signs:: I have reviewed the patient's vital signs. Vital Signs: Vital Signs 12/26/16 12/26/16 12/26/16 06:47 07:04 07:35 Temperature 36.3 C L Pulse Rate 93 86 98 Respiratory 19 27 H 17 Rate Blood Pressure 119/86 126/79 115/64 O2 Sat by Pulse 87 L 92 92 Oximetry 12/26/16 08:17 Temperature Pulse Rate 83 Respiratory 16 Rate Blood Pressure 114/78 O2 Sat by Pulse 94 Oximetry - EKG EKG: NSR, unchanged from - 12/22/2016, other - 1[address] DE[address] AV BLOCK. LBBB. - X-Ray X-Ray #1 X-Ray: chest X-ray Comments: [id number] Patient Name:BRUCE MEYER Date: 1935 Sex: M Order Number: [id number] Unique Exam ID: [id number] Exam Requested: CXRSINGLE - Chest Single View * Date Scheduled: Study Priority: Requesting Service: Requesting Physician: Xi Lara Reason for Exam: shortness of breath Radiological Report : Exam Date: 12/26/2016 06:56 Ordering Physician: Xi Lara History: Shortness of breath Comparison: 12/21/2016 Findings: There is mild cardiomegaly unchanged with stable mild pulmonary venous congestion. Again noted are increased interstitial markings perihilar lung jacobo and bases. No definite alveolar infiltrate or pleural effusion. IMPRESSION: UNCHANGED CHEST EXAM WITH PROBABLE CHF VERSUS FLUID OVERLOAD SUPERIMPOSED ON COPD Electronically signed by Edgar Segundo M.D.. Approved by: Approval Date: 12-26-2016 Approval Time: 07:42 AM THIS REPORT WAS RECEIVED FROM THE [employer] SYSTEM - CT/Ultrasound CT/Ultrasound Narrative: PATIENT RADIOLOGY STUDY REPORT Patient Patient Name:BRUCE MEYER Date: 1935 Sex: M Order Number: [id number] Unique Exam ID: [id number] Exam Requested: ANGIOCHES - CTA Chest * Date Scheduled: Study Priority: Requesting Service: Requesting Physician: Xi Lara Reason for Exam: elevated Ddimer Radiological Report : Exam Date: 12/26/2016 07:47 Ordering Physician: Xi Lara HISTORY: Elevated d-dimer, shortness of breath. TECHNIQUE: Multiple contrast-enhanced axial CT images of the chest were obtained, according to pulmonary angiography protocol. Coronal reconstructed maximal intensity projection images were also submitted for interpretation. COMPARISONS: Contrast enhanced chest CT from 10/27/2010. FINDINGS: CTA Chest *: Opacification of the pulmonary arterial branches are adequate. No filling defects are noted to suggest pulmonary embolus. Opacification of the thoracic aorta is suboptimal for angiographic evaluation but no definite focal finding is seen.. Multiple artifacts related to cardiac motion and streak artifact from contrast in the adjacent superior vena cava noted. There are ascending segment of the thoracic aorta appears to be somewhat dilated measuring 4.5 cm in greatest dimension. Multiple segments of the thoracic aorta demonstrates vascular calcifications throughout suggestive of atherosclerosis. Multiple mildly enlarged lymph nodes are noted along the right paratracheal, aorticopulmonary window, prevascular, subcarinal, and bilateral hilar regions. No significant pericardial effusion noted. Mild cardiac enlargement noted. Fairly extensive vascular calcifications are noted throughout the coronary arterial segments as above. There is also valvular calcifications at the level of the mitral valve. Lung parenchyma demonstrates fairly diffuse emphysematous changes predominantly affecting the bilateral upper lobes. At the lung bases, interlobular septal prominence/thickening suggested. There is likely compressive atelectasis of the lung bases due to small bilateral pleural effusions. There is also prominence of the peribronchial interstitium/thickening, which could be due to interstitial edema or due to acute or chronic bronchitis/COPD. The trachea is grossly patent. No definable pneumothorax. Bones are grossly intact. Degenerative changes of the thoracolumbar spine noted. Anterior chest wall is grossly unremarkable. Axillary regions are also grossly normal. The visualized portions of the abdomen demonstrates reflux of contrast into the inferior vena cava and hepatic veins which can be a sign of potential right heart failure. The adrenal glands are grossly symmetric. Calcified granulomas of the spleen noted. IMPRESSION: 1. No CT evidence for acute pulmonary thromboembolism. 2. Suboptimal opacification of the thoracic aorta for angiographic evaluation without obvious acute findings. 4.5 cm ascending thoracic aortic aneurysm. 3. Findings suggestive of interstitial edema, superimposed on emphysema. Small bilateral pleural effusions noted. 4. Cardiomegaly, and atherosclerotic disease of the coronary arteries suggested. Mitral valvular calcifications also present. Correlate clinically. 5. Reflux of intracardiac contrast material into the IVC and hepatic veins which can be a sign of right cardiac failure. 6. Nonspecific mediastinal lymphadenopathy. Could be reactive lymphadenopathy from infection or noninfectious inflammatory process ( e.g. sarcoidosis), versus metastatic disease/lymphoma. 7. Diffuse bronchial wall prominence, which could be related to interstitial edema versus acute or chronic bronchitis or COPD. 8. Additional comments as above. Electronically signed by Supriya Seo M.D.. Approved by: Approval Date: 12-26-2016 Approval Time: 09:23 AM THIS REPORT WAS RECEIVED FROM THE [employer] SYSTEM - Progress/Reassessment Progress:: Improved Plan - Plan Plan: HIS CTA IS BACK AND IS UNREMARKABLE FOR NEW PROBLEM AND NO PE. IS S.W HIS PCP WHO TO TRY LASIX 60 MG IV HERE WITH SOLUMEDROL 125 MG . ALSO REC ALTERING HIS HOME MEDS TO CONTINUE PREDNISONE 30 MG BID X 5 DAYS, Z PACK AND LASIX 40 MG QD ALONG WITH HIS REGULAR MEDS. HE WANTS TO SEE HIM BACK IN THE OFFICE TOMORROW FOR RECHECK. PT SAYS HE FEELS BETTER AFTER THE TREATMENTS ABOVE BUT CAN NOT SAY IF DUONEB OR LASIX HELPED THE MOST. HE IS STILL SOB WITH ACTIVITY AND WHILE TALKING BUT HE SAYS IT IS BETTER.
--- OUTSIDE RECORDS SUMMARY | 2016-12-26 07:00 | XMS REPORT | Continuity of Care Document ---
:1935 Author Organization [facility] ([facility]) Address [address] [place] [address] Phone [phone] Care Team Providers Name Role Phone Frantz Patricio Primary Care Provider [phone] Source Comments This disclosure is being made pursuant to the Care Everywhere program, applicable federal and state laws, and may not contain all informaitonavailable regarding this patient.[facility] ([facility]) Active Allergies and Adverse Reactions Allergen [...] Active capsule daily. fluticasone (FLONASE) use 1 Prather into the Active 50 mcg/Actuation nasal nose [...]
[2016-12-26 07:13] LABS: Hematocrit 36.8 % (42.0-52.0); Hemoglobin 11.9 gm/dL (13.5-18.0); Mean Cell Volume 88.5 fl (78-100); Mean Corpuscular Hemoglobin 28.6 pg (27-31); Mean Corpuscular Hgb Conc 32.3 g/dl (32-36); Mean Platelet Volume 10.2 fl (6.0-9.5); Neutrophil # 6.5 K/mm3 (1.3-6.0); Neutrophil % 74.9 % (42-75.0); Platelet Count 208 K/mm3 (150-450); Red Blood Count 4.16 M/mm3 (4.7-6.0); Red Cell Distribution Width 13.8 % (11.5-14.0); White Blood Count 8.6 K/mm3 (4.0-10.5)
[2016-12-26 07:33] LABS: Troponin I Less than 0.017 ng/ml (0.00-0.10)
[2016-12-26 07:39] LABS: ALT 41 U/L (19-67); AST 27 U/L (0-48); Albumin * 3.4 gm/dl (3.4-5.0); Alkaline Phosphatase * 61 U/L (50-170); BNP * 3291 pg/mL (5-650); BUN/Creatinine Ratio 23.3 (9.0-21.6); Bilirubin, Total 0.9 mg/dL (0.0-1.1); Blood Urea Nitrogen 30 mg/dL (6-23); Ca. Corrected For Albumin 8.5 mg/dL (8.4-10.2); Calcium * 8.3 mg/dL (7.9-10.9); Carbon Dioxide 26.2 mmol/L (24-32.6); Chloride 108 mmol/L (97-106); Glucose * 126 mg/dL (70-110); Potassium 4.2 mmol/L (3.4-4.6); Sodium 143 mmol/L (132-142); Total Protein 6.5 gm/dL (6.2-8.2)
[2016-12-26 08:18] LABS: INR 3.11 INR (0.90-1.10); Prothrombin Time (Patient) 32.3 Seconds (9.4-11.4)
[2016-12-26] MEDS ORDERED: ALBUTEROL SULFATE/IPRATROPIUM 3 ML NEBU IH ONE ×2 (10:05→10:09)
[2016-12-26] MEDS ORDERED: METHYLPREDNISOLONE SOD SUCC/PF 40 MG/ML VIAL IV ONE (10:18)
[2016-12-26] MEDS ORDERED: FUROSEMIDE 10 MG/ML VIAL IV ONE (10:18)
[2016-12-26] MEDS ORDERED: METHYLPREDNISOLONE SOD SUCC/PF 125 MG/2 ML VIAL ONE (10:29)
[2016-12-26] MEDS ORDERED: FUROSEMIDE 10 MG/ML VIAL ONE (10:30)
[2016-12-26 12:02] VITALS: BP 129/87
== END 2016-12-26 11:45 | disposition home or self-care (01) ==
LOC: ER 06:44
DX: R06.02 Shortness of breath (principal); I50.9 Heart failure, unspecified; J44.9 Chronic obstructive pulmonary disease, unspecified; Z85.46 Personal history of malignant neoplasm of prostate; K21.9 Gastro-esophageal reflux disease without esophagitis; N19 Unspecified kidney failure; I48.91 Unspecified atrial fibrillation; Z79.01 Long term (current) use of anticoagulants

== ENCOUNTER 2020-08-09 17:21 | Inpatient (IN) ==
[2020-08-09] MEDS ORDERED: MAGNESIUM SULFATE IN WATER 50 ML IV ONE (17:24)
[2020-08-09] MEDS ORDERED: METHYLPREDNISOLONE SOD SUCC/PF 125 MG/2 ML VIAL IV ONE (17:24)
[2020-08-09] MEDS ORDERED: METHYLPREDNISOLONE SOD SUCC/PF 125 MG/2 ML VIAL ONE (17:25)
[2020-08-09] MEDS ORDERED: ALBUTEROL SULFATE/IPRATROPIUM 3 ML NEBU IH ONE ×4 (17:26→17:31)
[2020-08-09] MEDS ORDERED: ALBUTEROL SULFATE 2.5 MG/0.5 ML VIAL.NEB IH ONE ×2 (17:27→17:28)
[2020-08-09] MEDS ORDERED: DILTIAZEM HCL 5 MG/ML VIAL IV ONE ×2 (17:28)
[2020-08-09] MEDS: ALBUTEROL SULFATE/IPRATROPIUM 3 ML NEBU IH ONE ×2 (17:35→17:38)
[2020-08-09] MEDS ORDERED: DILTIAZEM HCL 125 MG in DEXTROSE 5 % IN WATER 100 ML IV PRN ×2 (17:38)
[2020-08-09 17:45] LABS: Hematocrit 35.8 % (42.0-52.0); Hemoglobin 11.1 gm/dL (13.5-18.0); Mean Cell Volume 93.5 fl (78-100); Mean Platelet Volume 10.2 fl (8-11.3); Neutrophil # 12.9 K/mm3 (1.3-6.0); Neutrophil % 82.2 % (42-75.0); Platelet Count 379 K/mm3 (150-450); Red Blood Count 3.83 M/mm3 (4.7-6.0); White Blood Count 15.7 K/mm3 (4.0-10.5)
[2020-08-09] MEDS ORDERED: NORMAL SALINE 1,000 ML IV ONE (17:58)
[2020-08-09 18:05] LABS: Albumin * 3.1 gm/dl (3.4-5.0); Anion Gap 17.8 mmol/L (6.8-13.8); BUN/Creatinine Ratio 13.1 (9.0-21.6); Bilirubin, Total 1.2 mg/dL (0.0-1.1); Ca. Corrected For Albumin 9.1 mg/dL (8.4-10.2); Calcium * 8.7 mg/dL (7.9-10.9); Carbon Dioxide 23.9 mmol/L (24-32.6); Potassium 3.7 mmol/L (3.4-4.6); Total Protein 6.9 gm/dL (6.2-8.2)
[2020-08-09 18:07] LABS: Troponin I 0.021 ng/mL (0.00-0.10)
--- NOTE | 2020-08-09 18:29 | ERNOTE ---
Dyspnea - General Time Seen by Provider: 08/09/20 17:46 - Immun/Allergies/Home Medications Immunizations: IMMUNIZATION HX Immunizations Up to Date Yes History of Influenza Vaccine Yes Hx Pneumococcal Vaccination Yes Allergies/Adverse Reactions: Allergies lisinopril Adverse Reaction (Mild, Verified 08/09/20 17:34) cough mirtazapine [From Remeron] Adverse Reaction (Unknown, Verified 08/09/20 17:34) excessive drowsiness oxybutynin Adverse Reaction (Unknown, Verified 08/09/20 17:34) ineffective Home Medications: HOME MEDICATIONS Acetaminophen [Tylenol] 650 mg PO QID PRN #1 tab 09/22/15 [Last Taken Unknown] budesonide 0.25 mg/2 mL suspension for nebulization 0.25 mg IH BID #90 ml 07/02/19 [Last Taken Unknown] desoximetasone 0.25 % topical cream 1 applic TP TID PRN #60 g 07/02/19 [Last Taken Unknown] nebulizer and compressor See Dose Instructions .ROUTE .MEDSUPPLY #1 ea 07/26/19 [Last Taken Unknown] nebulizer mask and supplies 0 .ROUTE .MEDSUPPLY #1 ea 07/26/19 [Last Taken Unknown] fluticasone propionate 50 mcg/actuation nasal spray,suspension 1 spray HUBERT DAILY #19.8 ml 01/20/20 [Last Taken Unknown] warfarin 1 mg tablet See Rx Instructions PO DAILY tab 02/03/20 [Last Taken Unknown] ipratropium bromide 0.02 % solution for inhalation See Rx Instructions .ROUTE .COMPLEX #300 ml 02/11/20 [Last Taken Unknown] clopidogrel 75 mg tablet 75 mg PO DAILY #90 tab 04/06/20 [Last Taken Unknown] finasteride 5 mg tablet 5 mg PO DAILY #90 tab 04/06/20 [Last Taken Unknown] omeprazole 20 mg tablet,delayed release 40 mg PO DAILY #180 tab 04/06/20 [Last Taken Unknown] tamsulosin 0.4 mg capsule 0.4 mg PO BID #90 cap 04/30/20 [Last Taken Unknown] warfarin 2 mg tablet 2 mg PO DAILY #100 tab 06/01/20 [Last Taken Unknown] artificial saliva (yerba onelia and lytes) spray 1 spray MUCOUS MEMBRANE BID #236 ml 07/08/20 [Last Taken Unknown] benzonatate 200 mg capsule 200 mg PO TID PRN #30 cap 07/08/20 [Last Taken Unknown] guaifenesin 600 mg tablet, extended release 12 hr 600 mg PO BID PRN #30 tab 07/08/20 [Last Taken Unknown] amiodarone 100 mg tablet 100 mg PO DAILY #90 tab 07/20/20 [Last Taken Unknown] furosemide 10 mg/mL oral solution 10 mg PO DAILY #120 ml 07/20/20 [Last Taken Unknown] simvastatin 40 mg tablet 40 mg PO DAILY #90 tab 08/06/20 [Last Taken Unknown] - History of Present Illness Narrative: 85-year-old male presents in respiratory distress called ahead by ambulance. Started on CPAP by EMS. On arrival patient in moderate distress and was switched over to BiPAP which he tolerated well. He speaks in complete sentences has distant heart sounds that are irregularly irregular and tachycardic. Patient states he has a history of COPD which is oxygen dependent and wears 3 L at home in addition he has a history of atrial fibrillation. He states that he has had breathing problems for years but this episode worsened over the past 2 to 3 days. Severity: moderate Treatment FIELD OPERATIONS MANAGER: paramedics Review of Systems - Review of Systems Constitutional: Present: See HPI Respiratory: Present: See HPI Cardiology: Present: See HPI All Other Systems: All systems neg except as marked Medical History (Last Reviewed 08/09/20 @ 18:24 by Bety Lu MD) Abnormal transrectal ultrasound of prostate (Acute) Onset Date: ~01/25/08 Urinary hesitancy (Chronic) Onset Date: ~03/15/12 worsening Rhinitis (Chronic) Onset Date: ~10/04/11 Prostate neoplasm (Acute) Onset Date: ~03/2008 Oxygen desaturation during sleep (Chronic) Onset Date: ~11/21/16 Now using 2 L nasal cannula oxygen while sleeping, throughout the day as he needs it, and when actively walking, 4 L/min. 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) Onset Date: ~08/18/15 Benign essential hypertension (Chronic) Onset Date: ~01/23/18 Fatigue (Chronic) Onset Date: ~03/12/11 Essential hypertension (Chronic) Onset Date: ~03/12/11 Erectile dysfunction (Chronic) Onset Date: ~09/10/11 Elevated PSA (Acute) Onset Date: ~12/14/07 Dry mouth (Chronic) Onset Date: ~07/25/16 Carotid artery stenosis (Chronic) Onset Date: ~01/29/18 Bilateral low back pain with sciatica (Chronic) Onset Date: ~08/18/15 Bilateral carotid bruits (Chronic) Onset Date: ~01/23/18 Asthma (Chronic) Onset Date: ~2012 DELROY-inhibitor cough (Acute) Surgical History: Surgical History (Last Reviewed 08/09/20 @ 18:24 by Bety Lu MD) History of tonsillectomy (Acute) Onset Date: Unknown H/O local excision of skin lesion (Acute) Onset Date: ~01/24/17 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 History of colonoscopy (Acute) Onset Date: ~01/15/07 hyperplastic polyp Cataract (Resolved) Onset Date: ~2007 left eye 2007 right eye 2006 Family History: Family History (Last Reviewed 08/09/20 @ 18:24 by Bety Lu MD) Father Alzheimers disease Cancer skin Mother Hypertension Social History: (Last Reviewed 08/09/20 @ 18:24 by Bety Lu MD) Social History: custodial: No Marital status: lives independently: Yes Highest level of school completed/degree received: high school graduate Service: Yes Tobacco: Smoking Status: Former smoker Alcohol: alcohol intake: current Alcohol type: beer alcohol intake frequency: holiday/special occasion details: 1 drink ocassionally Substance Use: substance use type: does not use Dietary Habits: caffeine: Yes Physical Exam - Physical Exam General Appearance: Present: alert, moderate distress, thin, cachetic, other - Barrel chest Head Exam: Present: normal inspection, no evidence of injury Eye Exam: Normal inspection: bilateral Neck: Present: supple, full range of motion Respiratory: Present: respiratory distress, accessory muscle use, decreased breath sounds, expiration (prolonged), wheezing Cardiovascular/Chest: Present: irregularly irregular Gastrointestinal/Abdominal: Present: nondistended, soft Back Exam: Present: normal inspection Extremity Exam: Present: normal inspection, non-tender, normal range of motion, no edema Neurological Exam: Present: alert, oriented, normal mood/affect, other - Patient speaking in complete sentences and was quite conversational he states that he feels improved since he was placed on the BiPAP machine and given breathing treatments Skin Exam: Present: normal color, warm/dry Progress - Date and Time Seen: Date and Time: 08/09/20 18:26 On arrival patient given Solu-Medrol 125 mg IV push, magnesium 2 g, DuoNeb x3 doses continuous through BiPAP machine and states he feels significantly improved. His oxygen saturation has improved to 98 to 100% and his heart rate has decreased from 160s to 120s after a Cardizem push. Patient has been started on a Cardizem drip and will continue to monitor his blood pressure is tolerating in the 110s over 50s to 60s. Patient will require admission to the hospital for rate control pending lab and Covid testing results - Results and Orders Patient's Lab Results:: I have reviewed the patient's lab results. - Vital Signs Patient's Vital Signs:: I have reviewed the patient's vital signs. Vital Signs: Vital Signs 08/09/20 17:21 08/09/20 17:30 08/09/20 17:31 Temperature 37.8 C Pulse Rate 145 H 135 H 163 H Respiratory Rate 37 H 36 H Blood Pressure 112/69 112/69 O2 Sat by Pulse Oximetry 94 100 08/09/20 17:32 08/09/20 17:38 08/09/20 17:53 Temperature Pulse Rate 125 H 147 H 138 H Respiratory Rate 20 32 H Blood Pressure 113/75 119/62 O2 Sat by Pulse Oximetry 96 99 08/09/20 18:06 08/09/20 18:08 08/09/20 18:19 Temperature Pulse Rate 134 H 136 H 128 H Respiratory Rate 21 H 19 21 H Blood Pressure 79/51 L 119/52 103/50 O2 Sat by Pulse Oximetry 98 97 99 - EKG EKG #1 EKG: atrial fibrillation, other - Atrial fibrillation with RVR rate in the 150s - X-Ray X-Ray #1 X-Ray: chest - Patchy diffuse infiltrates edema versus viral illness type changes - Progress/Reassessment Chief Complaint: Dyspnea Progress:: Improved Progress Note-Subjective: 08/09/20 19:59 Patient improved and we were able to wean him off of BiPAP he was now on 6 L oxygen mask as he is at home with oxygen saturation ranging between 90 to 95% he was given 1 dose of metoprolol which improved his heart rate into the low 100s he will continue on the Cardizem drip I have discussed the case with the admitting doctor Dr. Landry who has accepted the patient. Plan - Plan Plan: Approximately 45 minutes of critical care time was spent separate from separately billable procedures on bedside management, respiratory care, IV medication bolus and drip, consultation with admitting doctor, patient and family and documentation of the medical record. Departure Clinical Impression: Atrial fibrillation Qualifiers: Atrial fibrillation type: paroxysmal Qualified Code(s): I48.0 - Paroxysmal atrial fibrillation COPD (chronic obstructive pulmonary disease) Qualifiers: COPD type: COPD with acute exacerbation Qualified Code(s): J44.1 - Chronic obstructive pulmonary disease with (acute) exacerbation - Departure Disposition: Short Term Hospital Inpatient Condition: Fair Referrals: Frantz Cardenas MD [Primary Care Provider] -
[2020-08-09] MEDS ORDERED: cefTRIAXone SODIUM 2,000 MG/100 ML BAG IV ONE (18:36)
[2020-08-09] MEDS ORDERED: METOPROLOL TARTRATE 1 MG/ML AMPUL IV ONE (19:12)
[2020-08-09 19:34] LABS: Venous Blood Gas HCO3 20.8 mmol/L (22.0-29.0); Venous Blood Gas pH 7.44 (7.32-7.43)
[2020-08-09] MEDS ORDERED: DESOXIMETASONE 0.25% TP PRN (21:31)
[2020-08-09] MEDS ORDERED: ACETAMINOPHEN 325 MG TABLET PO PRN (21:53)
[2020-08-09 22:13] LABS: Prothrombin Time (Patient) 38.6 Seconds (9.1-10.7)
[2020-08-09 22:15] LABS: INR 4.12 INR (0.92-1.08)
--- NOTE | 2020-08-09 22:26 | HP ---
Chief Complaint - Chief Complaint Date of Service: 08/09/20 Time of Service: 21:30 Chief Complaint: Shortness of breath, weakness History of Present Illness: 85-year-old male presents in respiratory distress called ahead by ambulance. Started on CPAP by EMS. On arrival patient in moderate distress and was switched over to BiPAP which he tolerated well. He speaks in complete sentences has distant heart sounds that are irregularly irregular and tachycardic. Patient states he has a history of COPD which is oxygen dependent and wears 3 L at home in addition he has a history of atrial fibrillation. He states that he has had breathing problems for years but this episode worsened over the past 2 to 3 days initially he was on BiPAP and with treatment was able to wean him down to an oxygen mask. He arrived to the floor on 6 L by oxygen mask. He was started on Cardizem as a bolus and then on a Cardizem drip which he remains on tonight. His heart rate has slowed from 155 bpm to 103 at the time of my exam. He is breathing much easier and feeling better. He relates that he had a fall 2 days ago. He fell because he tripped over a rug. He sustained bruise and abrasion to the right elbow and to the right lutheran. He thinks he fell on the arm onto his right chest and perhaps that is why he is having chest discomfort now. During the episode of chest pain this evening he does not recall being short of breath or diaphoretic. The ER work-up did not show any acute EKG changes but his troponin was up slightly. It was then repeated several hours later and although it had fallen slightly it was still elevated above reference range. Therefore with chest pain and positive troponin he will be admitted. He also has atrial for with RVR is responding nicely to Cardizem. He is a patient of Dr. My Rodríguez and I will return his care to him tomorrow morning. Medical History (Last Reviewed 08/09/20 @ 18:24 by Beyt Lu MD) Abnormal transrectal ultrasound of prostate (Acute) Onset Date: ~01/25/08 Urinary hesitancy (Chronic) Onset Date: ~03/15/12 worsening Rhinitis (Chronic) Onset Date: ~10/04/11 Prostate neoplasm (Acute) Onset Date: ~03/2008 Oxygen desaturation during sleep (Chronic) Onset Date: ~11/21/16 Now using 2 L nasal cannula oxygen while sleeping, throughout the day as he needs it, and when actively walking, 4 L/min. 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) Onset Date: ~08/18 Benign essential hypertension (Chronic) Onset Date: ~01/23/18 Fatigue (Chronic) Onset Date: ~03/12/11 Essential hypertension (Chronic) Onset Date: ~03/12/11 Erectile dysfunction (Chronic) Onset Date: ~09/10/11 Elevated PSA (Acute) Onset Date: ~12/14/07 Dry mouth (Chronic) Onset Date: ~07/25/16 Carotid artery stenosis (Chronic) Onset Date: ~01/29/18 Bilateral low back pain with sciatica (Chronic) Onset Date: ~08/18/15 Bilateral carotid bruits (Chronic) Onset Date: ~01/23/18 Asthma (Chronic) Onset Date: ~2012 DELROY-inhibitor cough (Acute) Surgical History: Surgical History (Last Reviewed 08/09/20 @ 18:24 by Bety Lu MD) History of tonsillectomy (Acute) Onset Date: Unknown H/O local excision of skin lesion (Acute) Onset Date: ~01/24/17 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 History of colonoscopy (Acute) Onset Date: ~01/15/07 hyperplastic polyp Cataract (Resolved) Onset Date: ~2007 left eye 2007 right eye 2006 Family History: Family History (Last Reviewed 08/09/20 @ 18:24 by Bety Lu MD) Father Alzheimers disease Cancer skin Mother Hypertension Social History: (Last Reviewed 08/09/20 @ 18:24 by Bety Lu MD) Social History: mcc: No Marital status: lives independently: Yes Highest level of school completed/degree received: high school graduate Service: Yes Tobacco: Smoking Status: Former smoker Alcohol: alcohol intake: current Alcohol type: beer alcohol intake frequency: holiday/special occasion details: 1 drink ocassionally Substance Use: substance use type: does not use Dietary Habits: caffeine: Yes Review Of Systems (GEN) - Review of Systems Generalized/Overall Review: Present: No Symptoms Reported, Weakness EENTM: Present: No Symptoms Reported Respiratory: Present: Shortness of Breath Cardiac: Present: Palpitations Abdominal: Present: No Symptoms Reported. Absent: Nausea, Vomiting, Abdominal Pain Genitourinary: Present: No Symptoms Reported Musculoskeletal: Present: Other - Right elbow pain and right anterior chest wall pain Neurological: Present: No Symptoms Reported Skin: Present: No Symptoms Reported, Bruising, Other - Bruising and abrasion to the right elbow and right lutheran due to a recent fall. Endocrine: Present: No Symptoms Reported Immunizations: IMMUNIZATION HX Immunizations Up to Date Yes History of Influenza Vaccine Yes Hx Pneumococcal Vaccination Yes Allergies/Adverse Reactions: Allergies Allergy/AdvReac Type Severity Reaction Status Date / Time lisinopril AdvReac Mild cough Verified 08/09/20 17:34 mirtazapine [From Remeron] AdvReac Unknown excessive Verified 08/09/20 17:34 drowsiness oxybutynin AdvReac Unknown ineffective Verified 08/09/20 17:34 Home Medications: HOME MEDICATIONS Acetaminophen [Tylenol] 650 mg PO QID PRN #1 tab 09/22/15 [Last Taken Unknown] budesonide 0.25 mg/2 mL suspension for nebulization 0.25 mg IH BID #90 ml 07/02/19 [Last Taken Unknown] desoximetasone 0.25 % topical cream 1 applic TP TID PRN #60 g 07/02/19 [Last Taken Unknown] nebulizer and compressor See Dose Instructions .ROUTE .MEDSUPPLY #1 ea 07/26/19 [Last Taken Unknown] nebulizer mask and supplies 0 .ROUTE .MEDSUPPLY #1 ea 07/26/19 [Last Taken Unknown] fluticasone propionate 50 mcg/actuation nasal spray,suspension 1 spray HUBERT DAILY #19.8 ml 01/20/20 [Last Taken Unknown] warfarin 1 mg tablet See Rx Instructions PO DAILY tab 02/03/20 [Last Taken Unknown] ipratropium bromide 0.02 % solution for inhalation See Rx Instructions .ROUTE .COMPLEX #300 ml 02/11/20 [Last Taken Unknown] clopidogrel 75 mg tablet 75 mg PO DAILY #90 tab 04/06/20 [Last Taken Unknown] finasteride 5 mg tablet 5 mg PO DAILY #90 tab 04/06/20 [Last Taken Unknown] omeprazole 20 mg tablet,delayed release 40 mg PO DAILY #180 tab 04/06/20 [Last Taken Unknown] tamsulosin 0.4 mg capsule 0.4 mg PO BID #90 cap 04/30/20 [Last Taken Unknown] warfarin 2 mg tablet 2 mg PO DAILY #100 tab 06/01/20 [Last Taken Unknown] artificial saliva (yerba onelia and lytes) spray 1 spray MUCOUS MEMBRANE BID #236 ml 07/08/20 [Last Taken Unknown] benzonatate 200 mg capsule 200 mg PO TID PRN #30 cap 07/08/20 [Last Taken Unknown] guaifenesin 600 mg tablet, extended release 12 hr 600 mg PO BID PRN #30 tab 07/08/20 [Last Taken Unknown] amiodarone 100 mg tablet 100 mg PO DAILY #90 tab 07/20/20 [Last Taken Unknown] furosemide 10 mg/mL oral solution 10 mg PO DAILY #120 ml 07/20/20 [Last Taken Unknown] simvastatin 40 mg tablet 40 mg PO DAILY #90 tab 08/06/20 [Last Taken Unknown] Exam - Exam Vital Signs: Vital Signs - Last Taken Temp 37.2 C 08/09/20 21:34 Pulse 110 H 08/09/20 21:34 Resp 20 08/09/20 21:34 BP 133/61 08/09/20 21:34 Pulse Ox 94 08/09/20 21:34 Constitutional: Present: Alert, Oriented x3, Cooperative, Well developed, Well nourished, Mild distress, Elderly ENT Exam: Present: normal ENT inspection, hearing grossly normal, pharynx normal, TMs normal Eye Exam: bilateral eye: normal inspection, PERRL, EOMI Neck: Present: non-tender, limited range of motion Back Exam: Present: normal inspection, no CVA tenderness, no vertebral tenderness Breasts: Present: Exam deferred, Nontender Respiratory: Present: chest non-tender, lungs clear, normal breath sounds, other - Tachypnea Cardiovascular/Chest: Present: no JVD - But a positive HJR at 15 degrees., tachycardia, irregularly irregular Peripheral Pulses: carotid (R): 2+, carotid (L): 2+, radial (R): 2+, radial (L): 2+ Abdomen: Present: Normal bowel sounds, soft, nontender, nondistended, no rebound tenderness, no hepatospenomegaly, no masses /Rectal: Present: Exam deferred Extremity: Present: normal range of motion, non-tender, normal inspection, no p edal edema, no calf tenderness, normal capillary refill Neurologic: Present: button pusher II-XII nml as tested, no motor/sensory deficits, alert, normal mood/affect, motor weakness Appearance: Present: appropriate appearance, appropriate insight, neat, no memory impairment Eye contact: Present: cooperative, good eye contact, normal speech Thoughts: Present: normal thought pattern, no apparent hallucination Diagnostic Studies: Abnormal Lab Results 08/09/20 08/09/20 08/09/20 Range/Units 17:25 17:25 17:25 WBC 15.7 H (4.0-10.5) K/mm3 RBC 3.83 L (4.7-6.0) M/mm3 Hgb 11.1 L (13.5-18.0) gm/dL Hct 35.8 L (42.0-52.0) % MCHC 31.0 L (32-36) g/dl RDW 15.0 H (11.5-14.0) % Immature Gran % (Auto) 0.50 H (0.001-0.429) % Immature Gran # (Auto) 0.08 H (0.000-0.0310) K/mm3 Neutrophils % 82.2 H (42-75.0) % Lymphocytes % 10.0 L (20-51) % Neutrophils # 12.9 H (1.3-6.0) K/mm3 pCO2 (35.0-48.0) mmHg pO2 (83.0-108.0) mmHg HCO3 (21.0-28.0) mmol/L Total CO2 (19.0-24.0) mmol/L Base Excess (-2.0-3.0) mmol/L ABG pH (7.35-7.45) VBG O2 Saturation (94.0-98.0) % Carbon Dioxide 23.9 L (24-32.6) mmol/L Anion Gap 17.8 H (6.8-13.8) mmol/L Creatinine 1.75 H (0.4-1.4) mg/dL Est GFR (Non-Af Amer) 39 L (60-130) mL/min Random Glucose 185 H (70-110) mg/dL Lactic Acid, Venous 4.4 H* (0.4-2.0) mmol/L Total Bilirubin 1.2 H (0.0-1.1) mg/dL ALT 18 L (19-67) U/L B-Natriuretic Peptide 7868 H (5-650) pg/mL Albumin 3.1 L (3.4-5.0) gm/dl 08/09/20 08/09/20 08/09/20 Range/Units 17:59 19:30 21:00 WBC (4.0-10.5) K/mm3 RBC (4.7-6.0) M/mm3 Hgb (13.5-18.0) gm/dL Hct (42.0-52.0) % MCHC (32-36) g/dl RDW (11.5-14.0) % Immature Gran % (Auto) (0.001-0.429) % Immature Gran # (Auto) (0.000-0.0310) K/mm3 Neutrophils % (42-75.0) % Lymphocytes % (20-51) % Neutrophils # (1.3-6.0) K/mm3 pCO2 22.0 L 31.2 L (35.0-48.0) mmHg pO2 71.9 L (83.0-108.0) mmHg HCO3 15.9 L 20.8 L (21.0-28.0) mmol/L Total CO2 16.5 L 21.8 L (19.0-24.0) mmol/L Base Excess -5.9 L -2.5 L (-2.0-3.0) mmol/L ABG pH 7.48 H 7.44 H (7.35-7.45) VBG O2 Saturation 64.1 L (94.0-98.0) % Carbon Dioxide (24-32.6) mmol/L Anion Gap (6.8-13.8) mmol/L Creatinine (0.4-1.4) mg/dL Est GFR (Non-Af Amer) (60-130) mL/min Random Glucose (70-110) mg/dL Lactic Acid, Venous 2.2 H* (0.4-2.0) mmol/L Total Bilirubin (0.0-1.1) mg/dL ALT (19-67) U/L B-Natriuretic Peptide (5-650) pg/mL Albumin (3.4-5.0) gm/dl Laboratory Results WBC 15.7 K/mm3 (4.0-10.5) H 08/09/20 17:25 RBC 3.83 M/mm3 (4.7-6.0) L 08/09/20 17:25 Hgb 11.1 gm/dL (13.5-18.0) L 08/09/20 17:25 Hct 35.8 % (42.0-52.0) L 08/09/20 17:25 MCV 93.5 fl (78-100) 08/09/20 17: MCH 29.0 pg (27-31) 08/09/20 17: MCHC 31.0 g/dl (32-36) L 08/09/20 17:25 RDW 15.0 % (11.5-14.0) H 08/09/20 17:25 Plt Count 379 K/mm3 (150-450) 08/09/20 17:25 MPV 10.2 fl (8-11.3) 08/09/20 17:25 Immature Gran % (Auto) 0.50 % (0.001-0.429) H 08/09/20 17:25 Immature Gran # (Auto) 0.08 K/mm3 (0.000-0.0310) H 08/09/20 17:25 Neutrophils % 82.2 % (42-75.0) H 08/09/20 17:25 Lymphocytes % 10.0 % (20-51) L 08/09/20 17:25 Monocytes % 6.5 % (0.0-9) 08/09/20 17:25 Eosinophils % 0.4 % (0.0-3.0) 08/09/20 17: Basophils % 0.4 % (0.0-1.0) 08/09/20 17:25 Nucleated RBC % 0.0 k/mm3 (0-1) 08/09/20 17:25 Neutrophils # 12.9 K/mm3 (1.3-6.0) H 08/09/20 17:25 Lymphocytes # 1.57 k/mm3 (1.5-3.5) 12/27/20 17:25 Monocytes # 1.0 k/mm3 (0.0-1.0) 08/09/20 17:25 Eosinophils # 0.1 k/mm3 (0.0-0.7) 08/09/20 17:25 Absolute Basophils 0.1 k/mm3 (0.0-0.1) 08/09/20 17:25 pCO2 31.2 mmHg (35.0-48.0) L 08/09/20 19:30 pO2 31.6 mmHg (23.3-35.1) 08/09/20 19:30 HCO3 20.8 mmol/L (22.0-29.0) L 08/09/20 19:30 Total CO2 21.8 mmol/L (22.0-26.0) L 08/09/20 19:30 Base Excess -2.5 mmol/L (-2.0-3.0) L 08/09/20 19:30 ABG pH 7.44 (7.32-7.43) H 08/09/20 19:30 ABG O2 Sat (Measured) 95.8 % (94.0-98.0) 08/09/20 17:59 VBG O2 Saturation 64.1 % (94.0-98.0) L 08/09/20 19:30 Sodium 141 mmol/L (132-142) 08/09/20 17:25 Plasma Sodium 142 mmol/L (130-142) 08/09/20 17:25 Potassium 3.7 mmol/L (3.4-4.6) 08/09/20 17:25 Chloride 103 mmol/L (97-106) 08/09/20 17:25 Carbon Dioxide 23.9 mmol/L (24-32.6) L 08/09/20 17:25 Anion Gap 17.8 mmol/L (6.8-13.8) H 08/09/20 17:25 BUN 23 mg/dL (6-23) 08/09/20 17:25 Creatinine 1.75 mg/dL (0.4-1.4) H 08/09/20 17:25 Est GFR (Non-Af Amer) 39 mL/min (60-130) L 08/09/20 17:25 BUN/Creatinine Ratio 13.1 (9.0-21.6) 08/09/20 17:25 Random Glucose 185 mg/dL (70-110) H 08/09/20 17:25 Lactic Acid, Venous 2.2 mmol/L (0.4-2.0) H* 08/09/20 21:00 Calcium 8.7 mg/dL (7.9-10.9) 08/09/20 17:25 Calcium Adj for Albumin 9.1 mg/dL (8.4-10.2) 08/09/20 17:25 Total Bilirubin 1.2 mg/dL (0.0-1.1) H 08/09/20 17:25 AST 17 U/L (0-48) 08/09/20 17:25 ALT 18 U/L (19-67) L 08/09/20 17:25 Alkaline Phosphatase 72 U/L (50-170) 08/09/20 17:25 Troponin I 0.021 ng/mL (0.00-0.10) 08/09/20 17:25 B-Natriuretic Peptide 7868 pg/mL (5-650) H 08/09/20 17:25 Total Protein 6.9 gm/dL (6.2-8.2) 08/09/20 17:25 Albumin 3.1 gm/dl (3.4-5.0) L 08/09/20 17:25 SARS-CoV-2 (PCR) Not detected (NotDetected) 08/09/20 17:40 Assessment/Plan - Narrative Narrative: #1. Continue Cardizem. #2. Continue continuous cardiac monitoring #3. Repeat CBC, CMP, lactic acid level, PT and INR, D-dimer, sed rate tomorrow morning #4. Repeat 2 view chest x-ray tomorrow morning #5. Hold Coumadin until INR is therapeutic again. Note it was 4.4 this evening. #6. Dr. Patricio to assume medical management tomorrow morning. - Procedures Results: 1. Continue Cardizem drip 2. Continuous cardiac monitoring 3. Repeat CBC, CMP, lactic acid tomorrow morning 4. Slow IV to 83 cc/h 5. Dr. Patricio to assume medical management tomorrow morning. - Assessment/Plan (1) Acute respiratory failure with hypoxemia Problem: Acute (2) Neutrophilic leukocytosis Problem: Acute (3) Elevated troponin Problem: Acute (4) Elevated lactic acid level Problem: Acute (5) Supplemental oxygen dependent Problem: Chronic (6) Chronic renal failure, stage 3 (moderate) Problem: Chronic (7) Essential hypertension Problem: Chronic (8) Atrial fibrillation with RVR Problem: Chronic (9) Coumadin toxicity Problem: Acute Qualifiers: Encounter type: initial encounter Injury intent: accidental or unintentional Qualified Code(s): T45.511A - Poisoning by anticoagulants, accidental (unintentional), initial encounter
[2020-08-10] MEDS ORDERED: DILTIAZEM HCL 180 MG CAP.SR.24H PO ONE (02:18)
[2020-08-10] MEDS: DILTIAZEM HCL 90 MG TABLET PO SCH ×2 (02:21→14:14)
[2020-08-10] MEDS: IPRATROPIUM BROMIDE 0.5 MG/2.5 ML VIAL.NEB IH SCH ×4 (06:14→18:05)
[2020-08-10] MEDS: BUDESONIDE 0.25 MG/2 ML VIAL.NEB IH SCH ×2 (06:16→18:06)
[2020-08-10 06:52] LABS: Prothrombin Time (Patient) 30.7 Seconds (9.1-10.7)
[2020-08-10 06:56] LABS: INR 3.24 INR (0.92-1.08)
[2020-08-10 07:06] LABS: Albumin * 2.6 gm/dl (3.4-5.0); Anion Gap 14.4 mmol/L (6.8-13.8); BUN/Creatinine Ratio 18.6 (9.0-21.6); Bilirubin, Total 0.6 mg/dL (0.0-1.1); Ca. Corrected For Albumin 8.8 mg/dL (8.4-10.2); Carbon Dioxide 23.1 mmol/L (24-32.6); Potassium 3.5 mmol/L (3.4-4.6)
--- NOTE | 2020-08-10 07:29 | PN ---
Subjective - Date and Time Seen Date: 08/10/20 Time: 06:45 Subjective Narrative: 85-year-old male presented yesterday in respiratory distress called ahead by ambulance. Started on CPAP by EMS. On arrival patient was in moderate distress and was switched over to BiPAP which he tolerated well. He continues to speak in complete sentences, has distant heart sounds that are irregularly irregular and has improved tachycardia. Patient has a history of COPD which is oxygen dependent and wears 2-4 L at home. He has a history of atrial fibrillation and is on warfarin. His INR was elevated last night and he has one pending for this morning. He has had breathing problems for years but this episode worsened over the past 2 to 3 days. Initially he was on BiPAP and with treatment has has been weaned down to an oxygen mask with 6 Liters. He takes oral diltiazem at home. At time of admission he was started on Cardizem as a bolus and then on a Cardizem drip for a heart rate in the 150s. His heart rate has now been ok without the drip. He feels much better this morning. He had a fall 2 days ago. He fell because he tripped over a rug. He sustained bruise and abrasion to the right elbow and to the right muslim. He thinks he fell on the arm onto his right chest and perhaps that is why he is having chest discomfort with tenderness now. It is better than last night. The ER work-up did not show any acute EKG changes but his troponin was up slightly. It was then repeated several hours later and although it had fallen slightly it was still elevated above reference range. His lactic acid was significantly elevated, but normal on repeat. His procalcitonin was normal. He was hypoxic and hypocarbic on ABGs. pH was normal. Second ABG was presumably venous. ABG is pending for this morning. WBC count was about 15, 000, and will be repeated this morning. CXR showed bilateral pneumonia, but covid was negative. He has been started on pneumonia antibiotics. He is still using a mask for O2. Objective - Review of Systems Generalized/Overall Review: Reports: Weakness, Malaise. Denies: Chills, Fever EENTM: Reports: No Symptoms Reported Respiratory: Reports: Cough, Shortness of Breath. Denies: Orthopnea, Wheezing Cardiac: Reports: Chest Pain. Denies: Edema, Palpitations Abdominal: Denies: Nausea, Abdominal Pain, Constipation, Diarrhea Genitourinary Symptoms: Reports: No Symptoms Reported Musculoskeletal Complaints: Reports: No Symptoms Reported Neurological: Reports: No Symptoms Reported Skin: Reports: Bruising - from fall Endocrine: Reports: Intolerance to Cold, Intolerance to Heat Misc: All systems neg except as marked - Vitals Vitals: Last Vital Signs Temp 36.8 C 08/10/20 06:54 Pulse 87 08/10/20 06:54 Resp 16 08/10/20 06:54 BP 121/66 08/10/20 06:54 Pulse Ox 91 L 08/10/20 06:54 - Abnormal Lab Findings Abnormal Lab Findings: Abnormal Lab Results 08/09/20 08/09/20 08/09/20 Range/Units 17:25 17:25 17:25 WBC 15.7 H (4.0-10.5) K/mm3 RBC 3.83 L (4.7-6.0) M/mm3 Hgb 11.1 L (13.5-18.0) gm/dL Hct 35.8 L (42.0-52.0) % MCHC 31.0 L (32-36) g/dl RDW 15.0 H (11.5-14.0) % Immature Gran % (Auto) 0.50 H (0.001-0.429) % Immature Gran # (Auto) 0.08 H (0.000-0.0310) K/mm3 Neutrophils % 82.2 H (42-75.0) % Lymphocytes % 10.0 L (20-51) % Neutrophils # 12.9 H (1.3-6.0) K/mm3 PT (9.1-10.7) Seconds INR (Anticoag Therapy) (0.92-1.08) INR pCO2 (35.0-48.0) mmHg pO2 (83.0-108.0) mmHg HCO3 (21.0-28.0) mmol/L Total CO2 (19.0-24.0) mmol/L Base Excess (-2.0-3.0) mmol/L ABG pH (7.35-7.45) VBG O2 Saturation (94.0-98.0) % Carbon Dioxide 23.9 L (24-32.6) mmol/L Anion Gap 17.8 H (6.8-13.8) mmol/L Creatinine 1.75 H (0.4-1.4) mg/dL Est GFR (Non-Af Amer) 39 L (60-130) mL/min Random Glucose 185 H (70-110) mg/dL Lactic Acid, Venous 4.4 H* (0.4-2.0) mmol/L Total Bilirubin 1.2 H (0.0-1.1) mg/dL ALT 18 L (19-67) U/L B-Natriuretic Peptide 7868 H (5-650) pg/mL Albumin 3.1 L (3.4-5.0) gm/dl 08/09/20 08/09/20 08/09/20 Range/Units 17:25 17:59 19:30 WBC (4.0-10.5) K/mm3 RBC (4.7-6.0) M/mm3 Hgb (13.5-18.0) gm/dL Hct (42.0-52.0) % MCHC (32-36) g/dl RDW (11.5-14.0) % Immature Gran % (Auto) (0.001-0.429) % Immature Gran # (Auto) (0.000-0.0310) K/mm3 Neutrophils % (42-75.0) % Lymphocytes % (20-51) % Neutrophils # (1.3-6.0) K/mm3 PT 38.6 H (9.1-10.7) Seconds INR (Anticoag Therapy) 4.12 H* (0.92-1.08) INR pCO2 22.0 L 31.2 L (35.0-48.0) mmHg pO2 71.9 L (83.0-108.0) mmHg HCO3 15.9 L 20.8 L (21.0-28.0) mmol/L Total CO2 16.5 L 21.8 L (19.0-24.0) mmol/L Base Excess -5.9 L -2.5 L (-2.0-3.0) mmol/L ABG pH 7.48 H 7.44 H (7.35-7.45) VBG O2 Saturation 64.1 L (94.0-98.0) % Carbon Dioxide (24-32.6) mmol/L Anion Gap (6.8-13.8) mmol/L Creatinine (0.4-1.4) mg/dL Est GFR (Non-Af Amer) (60-130) mL/min Random Glucose (70-110) mg/dL Lactic Acid, Venous (0.4-2.0) mmol/L Total Bilirubin (0.0-1.1) mg/dL ALT (19-67) U/L B-Natriuretic Peptide (5-650) pg/mL Albumin (3.4-5.0) gm/dl 08/09/20 08/10/20 08/10/20 Range/Units 21:00 06:30 06:30 WBC (4.0-10.5) K/mm3 RBC (4.7-6.0) M/mm3 Hgb (13.5-18.0) gm/dL Hct (42.0-52.0) % MCHC (32-36) g/dl RDW (11.5-14.0) % Immature Gran % (Auto) (0.001-0.429) % Immature Gran # (Auto) (0.000-0.0310) K/mm3 Neutrophils % (42-75.0) % Lymphocytes % (20-51) % Neutrophils # (1.3-6.0) K/mm3 PT 30.7 H (9.1-10.7) Seconds INR (Anticoag Therapy) 3.24 H (0.92-1.08) INR pCO2 (35.0-48.0) mmHg pO2 (83.0-108.0) mmHg HCO3 (21.0-28.0) mmol/L Total CO2 (19.0-24.0) mmol/L Base Excess (-2.0-3.0) mmol/L ABG pH (7.35-7.45) VBG O2 Saturation (94.0-98.0) % Carbon Dioxide (24-32.6) mmol/L Anion Gap (6.8-13.8) mmol/L Creatinine (0.4-1.4) mg/dL Est GFR (Non-Af Amer) (60-130) mL/min Random Glucose (70-110) mg/dL Lactic Acid, Venous 2.2 H* 2.1 H (0.4-2.0) mmol/L Total Bilirubin (0.0-1.1) mg/dL ALT (19-67) U/L B-Natriuretic Peptide (5-650) pg/mL Albumin (3.4-5.0) gm/dl - Exam Constitutional: Present: Alert, Oriented x3, Cooperative, Well developed, No distress ENT Exam: Present: normal ENT inspection, hearing grossly normal Neck: Present: normal inspection. Absent: lymphadenopathy (R), lymphadenopathy (L), thyromegaly Breasts: Present: Other - male Respiratory: Present: lungs clear, other - slight increased work of breathing Cardiovascular/Chest: Present: no edema, no gallop, no JVD, irregularly irregular Abdomen: Present: Normal bowel sounds, soft, nontender, nondistended, no hepatospenomegaly, no masses /Rectal: Present: Exam deferred Extremity: Present: normal inspection, no calf tenderness, normal capillary refill Skin Exam: Present: normal color, warm/dry, no cyanosis Lymphatic: Present: no adenopathy Neurologic: Present: normal mood/affect, oriented x 3 Appearance: Present: appropriate appearance, appropriate insight, neat, no memory impairment Eye contact: Present: cooperative, good eye contact, normal speech Thoughts: Present: normal thought pattern Assessment/Plan - Problems/Diagnosis (1) Acute respiratory failure with hypoxemia Problem: Acute Narrative: wean O2 as able. ABGs this AM (2) Hypocarbia Problem: Acute Narrative: wean O2. ABGs this AM. (3) Pneumonia Problem: Acute Qualifiers: Laterality: bilateral Narrative: may be viral but will cover bacterial with Rocephin and Zithromax (4) Tachycardia Problem: Resolved Narrative: a fib with rvr, now improved. will monitor. (5) Coumadin toxicity Problem: Acute Qualifiers: Encounter type: initial encounter Injury intent: accidental or unintentional Qualified Code(s): T45.511A - Poisoning by anticoagulants, accidental (unintentional), initial encounter Narrative: have held warfarin and will monitor INR. (6) Elevated lactic acid level Problem: Resolved (7) Elevated troponin Problem: Resolved (8) Neutrophilic leukocytosis Problem: Acute Narrative: repeat CBC today (9) Atrial fibrillation with RVR Problem: Resolved Narrative: rate acceptable now. continue oral cardizem (10) Essential hypertension Problem: Chronic (11) Oxygen desaturation during sleep Problem: Chronic
[2020-08-10] MEDS: AZITHROMYCIN 500 MG in DEXTROSE 5 % IN WATER 250 ML IV SCH ×2 (08:39)
[2020-08-10] MEDS: TAMSULOSIN HCL 0.4 MG CAP.SR.24H PO SCH ×2 (08:44→20:28)
[2020-08-10] MEDS: FINASTERIDE 5 MG TABLET PO SCH (08:45)
[2020-08-10] MEDS: AMIODARONE HCL 200 MG TABLET PO SCH (08:46)
[2020-08-10] MEDS: FLUTICASONE PROPIONATE 120 SPRAY INHALER NS SCH (08:53)
[2020-08-10] MEDS ORDERED: WARFARIN SODIUM 1 MG TABLET PO SCH (09:00)
[2020-08-10] MEDS ORDERED: OMEPRAZOLE 20 MG CAPSULE.SA PO SCH (09:00)
[2020-08-10] MEDS ORDERED: WARFARIN SODIUM 2 MG TABLET PO SCH (09:00)
--- NOTE | 2020-08-10 09:19 | PN ---
Subjective - Date and Time Seen Date: 08/10/20 Time: 09:16 Subjective Narrative: Clinical findings: WBC 15.7, Neuts 82.2%, HR 145, RR 37, Lactic Acid 4.4, Bili 1.2, presence of pneumonia Treatment: Blood cultures, IV fluids, IV Rocephin, IV Zithromycin Risk factors: bilateral pneumonia, age 85 The patient is also being treated for: Sepsis at admission secondary to pneumonia present on admission Objective - Vitals Vitals: Last Vital Signs Temp 36.8 C 08/10/20 06:54 Pulse 87 08/10/20 06:54 Resp 16 08/10/20 06:54 BP 121/66 08/10/20 06:54 Pulse Ox 90 L 08/10/20 09:07 - Abnormal Lab Findings Abnormal Lab Findings: Abnormal Lab Results 08/09/20 08/09/20 08/09/20 Range/Units 17:25 17:25 17:25 WBC 15.7 H (4.0-10.5) K/mm3 RBC 3.83 L (4.7-6.0) M/mm3 Hgb 11.1 L (13.5-18.0) gm/dL Hct 35.8 L (42.0-52.0) % MCHC 31.0 L (32-36) g/dl RDW 15.0 H (11.5-14.0) % Immature Gran % (Auto) 0.50 H (0.001-0.429) % Immature Gran # (Auto) 0.08 H (0.000-0.0310) K/mm3 Neutrophils % 82.2 H (42-75.0) % Lymphocytes % 10.0 L (20-51) % Neutrophils # 12.9 H (1.3-6.0) K/mm3 PT (9.1-10.7) Seconds INR (Anticoag Therapy) (0.92-1.08) INR D-Dimer (0.19-0.49) ug/mL pCO2 (35.0-48.0) mmHg pO2 (83.0-108.0) mmHg HCO3 (21.0-28.0) mmol/L Total CO2 (19.0-24.0) mmol/L Base Excess (-2.0-3.0) mmol/L ABG pH (7.35-7.45) ABG O2 Sat (Measured) (94.0-98.0) % VBG O2 Saturation (94.0-98.0) % Chloride (97-106) mmol/L Carbon Dioxide 23.9 L (24-32.6) mmol/L Anion Gap 17.8 H (6.8-13.8) mmol/L BUN (6-23) mg/dL Creatinine 1.75 H (0.4-1.4) mg/dL Est GFR (Non-Af Amer) 39 L (60-130) mL/min Random Glucose 185 H (70-110) mg/dL Lactic Acid, Venous 4.4 H* (0.4-2.0) mmol/L Total Bilirubin 1.2 H (0.0-1.1) mg/dL ALT 18 L (19-67) U/L B-Natriuretic Peptide 7868 H (5-650) pg/mL Total Protein (6.2-8.2) gm/dL Albumin 3.1 L (3.4-5.0) gm/dl 08/09/20 08/09/20 08/09/20 Range/Units 17:25 17:59 19:30 WBC (4.0-10.5) K/mm3 RBC (4.7-6.0) M/mm3 Hgb (13.5-18.0) gm/dL Hct (42.0-52.0) % MCHC (32-36) g/dl RDW (11.5-14.0) % Immature Gran % (Auto) (0.001-0.429) % Immature Gran # (Auto) (0.000-0.0310) K/mm3 Neutrophils % (42-75.0) % Lymphocytes % (20-51) % Neutrophils # (1.3-6.0) K/mm3 PT 38.6 H (9.1-10.7) Seconds INR (Anticoag Therapy) 4.12 H* (0.92-1.08) INR D-Dimer (0.19-0.49) ug/mL pCO2 22.0 L 31.2 L (35.0-48.0) mmHg pO2 71.9 L (83.0-108.0) mmHg HCO3 15.9 L 20.8 L (21.0-28.0) mmol/L Total CO2 16.5 L 21.8 L (19.0-24.0) mmol/L Base Excess -5.9 L -2.5 L (-2.0-3.0) mmol/L ABG pH 7.48 H 7.44 H (7.35-7.45) ABG O2 Sat (Measured) (94.0-98.0) % VBG O2 Saturation 64.1 L (94.0-98.0) % Chloride (97-106) mmol/L Carbon Dioxide (24-32.6) mmol/L Anion Gap (6.8-13.8) mmol/L BUN (6-23) mg/dL Creatinine (0.4-1.4) mg/dL Est GFR (Non-Af Amer) (60-130) mL/min Random Glucose (70-110) mg/dL Lactic Acid, Venous (0.4-2.0) mmol/L Total Bilirubin (0.0-1.1) mg/dL ALT (19-67) U/L B-Natriuretic Peptide (5-650) pg/mL Total Protein (6.2-8.2) gm/dL Albumin (3.4-5.0) gm/dl 08/09/20 08/10/20 08/10/20 Range/Units 21:00 06:30 06:30 WBC (4.0-10.5) K/mm3 RBC (4.7-6.0) M/mm3 Hgb (13.5-18.0) gm/dL Hct (42.0-52.0) % MCHC (32-36) g/dl RDW (11.5-14.0) % Immature Gran % (Auto) (0.001-0.429) % Immature Gran # (Auto) (0.000-0.0310) K/mm3 Neutrophils % (42-75.0) % Lymphocytes % (20-51) % Neutrophils # (1.3-6.0) K/mm3 PT 30.7 H (9.1-10.7) Seconds INR (Anticoag Therapy) 3.24 H (0.92-1.08) INR D-Dimer (0.19-0.49) ug/mL pCO2 (35.0-48.0) mmHg pO2 (83.0-108.0) mmHg HCO3 (21.0-28.0) mmol/L Total CO2 (19.0-24.0) mmol/L Base Excess (-2.0-3.0) mmol/L ABG pH (7.35-7.45) ABG O2 Sat (Measured) (94.0-98.0) % VBG O2 Saturation (94.0-98.0) % Chloride 107 H (97-106) mmol/L Carbon Dioxide 23.1 L (24-32.6) mmol/L Anion Gap 14.4 H (6.8-13.8) mmol/L BUN 30 H (6-23) mg/dL Creatinine 1.61 H (0.4-1.4) mg/dL Est GFR (Non-Af Amer) 43 L (60-130) mL/min Random Glucose 163 H (70-110) mg/dL Lactic Acid, Venous 2.2 H* (0.4-2.0) mmol/L Total Bilirubin (0.0-1.1) mg/dL ALT 17 L (19-67) U/L B-Natriuretic Peptide (5-650) pg/mL Total Protein 6.0 L (6.2-8.2) gm/dL Albumin 2.6 L (3.4-5.0) gm/dl 08/10/20 08/10/20 08/10/20 Range/Units 06:30 06:30 07:19 WBC (4.0-10.5) K/mm3 RBC (4.7-6.0) M/mm3 Hgb (13.5-18.0) gm/dL Hct (42.0-52.0) % MCHC (32-36) g/dl RDW (11.5-14.0) % Immature Gran % (Auto) (0.001-0.429) % Immature Gran # (Auto) (0.000-0.0310) K/mm3 Neutrophils % (42-75.0) % Lymphocytes % (20-51) % Neutrophils # (1.3-6.0) K/mm3 PT (9.1-10.7) Seconds INR (Anticoag Therapy) (0.92-1.08) INR D-Dimer 0.88 H (0.19-0.49) ug/mL pCO2 25.8 L (35.0-48.0) mmHg pO2 48.0 L (83.0-108.0) mmHg HCO3 17.9 L (21.0-28.0) mmol/L Total CO2 18.7 L (19.0-24.0) mmol/L Base Excess -4.6 L (-2.0-3.0) mmol/L ABG pH 7.46 H (7.35-7.45) ABG O2 Sat (Measured) 86.8 L (94.0-98.0) % VBG O2 Saturation (94.0-98.0) % Chloride (97-106) mmol/L Carbon Dioxide (24-32.6) mmol/L Anion Gap (6.8-13.8) mmol/L BUN (6-23) mg/dL Creatinine (0.4-1.4) mg/dL Est GFR (Non-Af Amer) (60-130) mL/min Random Glucose (70-110) mg/dL Lactic Acid, Venous 2.1 H (0.4-2.0) mmol/L Total Bilirubin (0.0-1.1) mg/dL ALT (19-67) U/L B-Natriuretic Peptide (5-650) pg/mL Total Protein (6.2-8.2) gm/dL Albumin (3.4-5.0) gm/dl Assessment/Plan - Problems/Diagnosis (1) Sepsis Problem: Resolved Narrative: present at admission. resolved now. (2) Pneumonia Problem: Acute Qualifiers: Laterality: bilateral (3) Acute respiratory failure with hypoxemia Problem: Acute (4) Hypocarbia Problem: Acute (5) Tachycardia Problem: Resolved (6) Coumadin toxicity Problem: Acute Qualifiers: Encounter type: initial encounter Injury intent: accidental or unintentional Qualified Code(s): T45.511A - Poisoning by anticoagulants, accidental (unintentional), initial encounter (7) Elevated lactic acid level Problem: Resolved (8) Elevated troponin Problem: Resolved (9) Neutrophilic leukocytosis Problem: Acute (10) Atrial fibrillation with RVR Problem: Resolved (11) Essential hypertension Problem: Chronic (12) Oxygen desaturation during sleep Problem: Chronic
[2020-08-10] MEDS: guaiFENesin/DEXTROMETHORPHAN SYRUP PO PRN ×2 (14:15→18:59)
[2020-08-11] MEDS: DILTIAZEM HCL 90 MG TABLET PO SCH (01:31)
[2020-08-11] MEDS: guaiFENesin/DEXTROMETHORPHAN SYRUP PO PRN ×2 (01:36→08:07)
[2020-08-11] MEDS: IPRATROPIUM BROMIDE 0.5 MG/2.5 ML VIAL.NEB IH SCH ×4 (06:00→18:20)
[2020-08-11] MEDS: BUDESONIDE 0.25 MG/2 ML VIAL.NEB IH SCH ×2 (06:00→18:20)
[2020-08-11 06:32] LABS: Albumin * 2.7 gm/dl (3.4-5.0); Anion Gap 14.6 mmol/L (6.8-13.8); BUN/Creatinine Ratio 27.5 (9.0-21.6); Bilirubin, Total 0.8 mg/dL (0.0-1.1); Ca. Corrected For Albumin 8.7 mg/dL (8.4-10.2); Potassium 3.6 mmol/L (3.4-4.6); Total Protein 6.3 gm/dL (6.2-8.2)
[2020-08-11 06:33] LABS: Hematocrit 32.5 % (42.0-52.0); Hemoglobin 10.2 gm/dL (13.5-18.0); Mean Cell Volume 91.8 fl (78-100); Mean Corpuscular Hemoglobin 28.8 pg (27-31); Mean Corpuscular Hgb Conc 31.4 g/dl (32-36); Mean Platelet Volume 10.4 fl (8-11.3); Neutrophil # 16.7 K/mm3 (1.3-6.0); Neutrophil % 89.6 % (42-75.0); Platelet Count 319 K/mm3 (150-450); Prothrombin Time (Patient) 37.4 Seconds (9.1-10.7); Red Blood Count 3.54 M/mm3 (4.7-6.0); Red Cell Distribution Width 15.3 % (11.5-14.0); White Blood Count 18.6 K/mm3 (4.0-10.5)
[2020-08-11 06:35] LABS: INR 3.98 INR (0.92-1.08)
--- NOTE | 2020-08-11 07:22 | PN ---
Subjective - Date and Time Seen Date: 08/11/20 Time: 07:00 Subjective Narrative: 85-year-old male presented 2 days ago in respiratory distress. Started on CPAP by EMS. On arrival patient was in moderate distress and was switched over to BiPAP which he tolerated well. He was able to speak in complete sentences, had distant heart sounds that were irregularly irregular and tachycardia which improved. Patient has a history of COPD which is oxygen dependent and wears 2-4 L at home. He has a history of atrial fibrillation and is on warfarin. INR is still elevated, will continue to hold coumadin and check INR tomorrow. He has had breathing problems for years but this episode worsened over the past 3-4 days. Initially he was on BiPAP and with treatment he was weaned down to a simple oxygen mask until last night, when his O2 dropped into the 80s and he had more trouble breathing. At one point, his O2 sat dropped into the upper 70s. ABGs then showed a decrease in pO2. Applying a CPAP mask made him feel better and his ABGs this morning were about like yesterday morning. He continues on CPAP. He takes oral diltiazem at home. At time of admission he was started on Cardizem as a bolus and then on a Cardizem drip for a heart rate in the 150s. Heart rate increased last night but is now in the 90s and low 100s. He fell 3 days ago at home, because he tripped over a rug. He sustained bruises and abrasions to the right elbow and to the right roman catholic. Chest discomfort from the fall has improved. now. The ER work-up did not show any acute EKG changes but his troponin was up slightly. Several hours it had fallen slightly, but still elevated above reference range. His lactic acid was significantly elevated initially, but normal on repeat. His procalcitonin was normal. He was hypoxic and hypocarbic on ABGs. pH was normal. Second ABG venous. WBC count has increased from 15 to 18, and will be repeated this morning. He has had no fever chills or sweats. His hgb has dropped slightly. No evidence of gross bleeding. Will check again tomorrow and in the mean time check stools for OB. CXR showed bilateral pneumonia, but covid was negative. Because of a worsening in respiratory status and increase in wbc count, we will repeat a CXR this morning. His albumin is low suggestive of malnutrition. We will add snacks and multiple vitamins. Objective - Review of Systems Generalized/Overall Review: Reports: Weakness. Denies: Chills, Fever, Diaphoresis EENTM: Reports: No Symptoms Reported Respiratory: Reports: Cough, Shortness of Breath Cardiac: Denies: Edema, Palpitations Abdominal: Reports: No Symptoms Reported Genitourinary Symptoms: Reports: No Symptoms Reported Musculoskeletal Complaints: Reports: No Symptoms Reported Neurological: Reports: No Symptoms Reported Skin: Reports: No Symptoms Reported Endocrine: Reports: Intolerance to Cold, Intolerance to Heat Misc: All systems neg except as marked - Vitals Vitals: Last Vital Signs Temp 36.3 C 08/11/20 02:38 Pulse 101 H 08/11/20 06:19 Resp 31 H 08/11/20 06:19 BP 131/74 08/11/20 02:38 Pulse Ox 94 08/11/20 06:19 - Abnormal Lab Findings Abnormal Lab Findings: Abnormal Lab Results 08/10/20 08/10/20 08/10/20 Range/Units 06:30 06:30 06:30 WBC (4.0-10.5) K/mm3 RBC (4.7-6.0) M/mm3 Hgb (13.5-18.0) gm/dL Hct (42.0-52.0) % MCHC (32-36) g/dl RDW (11.5-14.0) % Immature Gran % (Auto) (0.001-0.429) % Immature Gran # (Auto) (0.000-0.0310) K/mm3 Neutrophils % (42-75.0) % Lymphocytes % (20-51) % Neutrophils # (1.3-6.0) K/mm3 Lymphocytes # (1.5-3.5) k/mm3 Monocytes # (0.0-1.0) k/mm3 PT (9.1-10.7) Seconds INR (Anticoag Therapy) (0.92-1.08) INR D-Dimer 0.88 H (0.19-0.49) ug/mL pCO2 (35.0-48.0) mmHg pO2 (83.0-108.0) mmHg HCO3 (21.0-28.0) mmol/L Total CO2 (19.0-24.0) mmol/L Base Excess (-2.0-3.0) mmol/L ABG pH (7.35-7.45) ABG O2 Sat (Measured) (94.0-98.0) % Chloride 107 H (97-106) mmol/L Carbon Dioxide 23.1 L (24-32.6) mmol/L Anion Gap 14.4 H (6.8-13.8) mmol/L BUN 30 H (6-23) mg/dL Creatinine 1.61 H (0.4-1.4) mg/dL Est GFR (Non-Af Amer) 43 L (60-130) mL/min BUN/Creatinine Ratio (9.0-21.6) Random Glucose 163 H (70-110) mg/dL Lactic Acid, Venous 2.1 H (0.4-2.0) mmol/L ALT 17 L (19-67) U/L Total Protein 6.0 L (6.2-8.2) gm/dL Albumin 2.6 L (3.4-5.0) gm/dl 08/10/20 08/11/20 08/11/20 Range/Units 07:19 02:57 05:41 WBC (4.0-10.5) K/mm3 RBC (4.7-6.0) M/mm3 Hgb (13.5-18.0) gm/dL Hct (42.0-52.0) % MCHC (32-36) g/dl RDW (11.5-14.0) % Immature Gran % (Auto) (0.001-0.429) % Immature Gran # (Auto) (0.000-0.0310) K/mm3 Neutrophils % (42-75.0) % Lymphocytes % (20-51) % Neutrophils # (1.3-6.0) K/mm3 Lymphocytes # (1.5-3.5) k/mm3 Monocytes # (0.0-1.0) k/mm3 PT (9.1-10.7) Seconds INR (Anticoag Therapy) (0.92-1.08) INR D-Dimer (0.19-0.49) ug/mL pCO2 25.8 L 28.5 L 27.7 L (35.0-48.0) mmHg pO2 48.0 L 45.9 L 53.5 L (83.0-108.0) mmHg HCO3 17.9 L 19.7 L 19.2 L (21.0-28.0) mmol/L Total CO2 18.7 L (19.0-24.0) mmol/L Base Excess -4.6 L -3.2 L -3.7 L (-2.0-3.0) mmol/L ABG pH 7.46 H 7.46 H 7.46 H (7.35-7.45) ABG O2 Sat (Measured) 86.8 L 85.0 L 90.0 L (94.0-98.0) % Chloride (97-106) mmol/L Carbon Dioxide (24-32.6) mmol/L Anion Gap (6.8-13.8) mmol/L BUN (6-23) mg/dL Creatinine (0.4-1.4) mg/dL Est GFR (Non-Af Amer) (60-130) mL/min BUN/Creatinine Ratio (9.0-21.6) Random Glucose (70-110) mg/dL Lactic Acid, Venous (0.4-2.0) mmol/L ALT (19-67) U/L Total Protein (6.2-8.2) gm/dL Albumin (3.4-5.0) gm/dl 08/11/20 08/11/20 08/11/20 Range/Units 06:14 06:14 06:14 WBC 18.6 H (4.0-10.5) K/mm3 RBC 3.54 L (4.7-6.0) M/mm3 Hgb 10.2 L (13.5-18.0) gm/dL Hct 32.5 L (42.0-52.0) % MCHC 31.4 L (32-36) g/dl RDW 15.3 H (11.5-14.0) % Immature Gran % (Auto) 0.50 H (0.001-0.429) % Immature Gran # (Auto) 0.09 H (0.000-0.0310) K/mm3 Neutrophils % 89.6 H (42-75.0) % Lymphocytes % 4.2 L (20-51) % Neutrophils # 16.7 H (1.3-6.0) K/mm3 Lymphocytes # 0.78 L (1.5-3.5) k/mm3 Monocytes # 1.1 H (0.0-1.0) k/mm3 PT 37.4 H (9.1-10.7) Seconds INR (Anticoag Therapy) 3.98 H (0.92-1.08) INR D-Dimer (0.19-0.49) ug/mL pCO2 (35.0-48.0) mmHg pO2 (83.0-108.0) mmHg HCO3 (21.0-28.0) mmol/L Total CO2 (19.0-24.0) mmol/L Base Excess (-2.0-3.0) mmol/L ABG pH (7.35-7.45) ABG O2 Sat (Measured) (94.0-98.0) % Chloride (97-106) mmol/L Carbon Dioxide (24-32.6) mmol/L Anion Gap 14.6 H (6.8-13.8) mmol/L BUN 44 H (6-23) mg/dL Creatinine 1.60 H (0.4-1.4) mg/dL Est GFR (Non-Af Amer) 44 L (60-130) mL/min BUN/Creatinine Ratio 27.5 H (9.0-21.6) Random Glucose 145 H (70-110) mg/dL Lactic Acid, Venous (0.4-2.0) mmol/L ALT (19-67) U/L Total Protein (6.2-8.2) gm/dL Albumin 2.7 L (3.4-5.0) gm/dl - Exam Constitutional: Present: Alert, Oriented x3, Cooperative, Well developed, No distress - no distress on CPAP. had respiratory distress last night. ENT Exam: Present: normal ENT inspection, hearing grossly normal Neck: Present: normal inspection. Absent: lymphadenopathy (R), lymphadenopathy (L), thyromegaly Breasts: Present: Other - male Respiratory: Present: lungs clear, decreased breath sounds, other - last night retractions and accesory muscle use which have resolved with CPAP Cardiovascular/Chest: Present: regular rate, rhythm, no edema, no JVD Abdomen: Present: Normal bowel sounds, soft, nontender, no hepatospenomegaly, no masses /Rectal: Present: Exam deferred Extremity: Present: normal inspection, normal capillary refill Skin Exam: Present: normal color, warm/dry, no cyanosis Lymphatic: Present: no adenopathy Neurologic: Present: normal mood/affect Appearance: Present: appropriate appearance, appropriate insight, neat Eye contact: Present: cooperative, good eye contact, normal speech Thoughts: Present: normal thought pattern Assessment/Plan - Problems/Diagnosis (1) Sepsis Problem: Resolved (2) Pneumonia Problem: Acute Qualifiers: Laterality: bilateral Narrative: more difficulty breathing and small increase in wbc count this morning. will follow CBC and repeat a CXR this morning. (3) Acute respiratory failure with hypoxemia Problem: Acute (4) Hypocarbia Problem: Acute (5) Tachycardia Problem: Resolved (6) Coumadin toxicity Problem: Acute Qualifiers: Encounter type: initial encounter Injury intent: accidental or unintentional Qualified Code(s): T45.511A - Poisoning by anticoagulants, accidental (unintentional), initial encounter (7) Anemia Problem: Acute Qualifiers: Anemia type: unspecified type Qualified Code(s): D64.9 - Anemia, unspecified Narrative: most likely subacute. will monitor CBC and check stools for OB. no evidence for gross bleeding. (8) Malnutrition Problem: Chronic Qualifiers: Malnutrition type: protein-calorie malnutrition Protein-calorie malnutrition severity: mild Qualified Code(s): E44.1 - Mild protein-calorie malnutrition Narrative: low albumin plus was not eating well at home chronically (9) Elevated lactic acid level Problem: Resolved (10) Elevated troponin Problem: Resolved (11) Neutrophilic leukocytosis Problem: Acute (12) Atrial fibrillation with RVR Problem: Resolved (13) Essential hypertension Problem: Chronic (14) Oxygen desaturation during sleep Problem: Chronic
[2020-08-11] MEDS: AZITHROMYCIN 500 MG in DEXTROSE 5 % IN WATER 250 ML IV SCH ×2 (07:48)
[2020-08-11] MEDS: PANTOPRAZOLE SODIUM 40 MG TABLET.EC PO SCH (07:51)
[2020-08-11] MEDS: FINASTERIDE 5 MG TABLET PO SCH (08:06)
[2020-08-11] MEDS: TAMSULOSIN HCL 0.4 MG CAP.SR.24H PO SCH ×2 (08:06→21:55)
[2020-08-11] MEDS: AMIODARONE HCL 200 MG TABLET PO SCH (08:06)
[2020-08-11] MEDS: FLUTICASONE PROPIONATE 120 SPRAY INHALER NS SCH (08:07)
[2020-08-11] MEDS: MULTIVITAMINS 1 CAP CAPSULE PO SCH (08:09)
--- NOTE | 2020-08-11 09:45 | PN ---
Progess Note - Interim Date: 08/11/20 Time: 09:43 Narrative: 08/11/20 09:43 wbc count increased from 15 to 18 clininically breathing is worse, has required CPAP to maintain CXR this morning showed worsening bilateral infiltrates. I will expand coverage to cover MRSA and Pseudomonas. The pneumonia may still be viral. In either case, we will continue supportive care. If fails CPAP, next step is intubation and ventilator.
[2020-08-11] MEDS ORDERED: VANCOMYCIN/WATER FOR INJ (PEG) 1.5 GM/300 ML BAG IV ONE (10:30)
--- NOTE | 2020-08-11 10:38 | PN ---
Progess Note - Interim Date: 08/11/20 Time: 10:37 Narrative: 08/11/20 10:37 correction of treatment plan: we will continue current treatment with the exception of ventilator. patient previously made known he does want treatment, but does not want a ventilator.
[2020-08-11] MEDS ORDERED: LEVOFLOXACIN 750 MG TABLET PO SCH (11:00)
[2020-08-11] MEDS: CEFEPIME HCL 2 GM in DEXTROSE 5 % IN WATER 100 ML IV SCH ×4 (11:11→21:54)
[2020-08-11] MEDS ORDERED: DEXAMETHASONE SODIUM PHOSP/PF 10 MG/ML VIAL IV STA (13:17)
--- NOTE | 2020-08-11 13:37 | PN ---
Subjective - Date and Time Seen Date: 08/11/20 Time: 13:31 Subjective Narrative: covid negative in ER covid positive today will move to the SCU for the purpose of isolation. most likely has covid pneumonia, but I can't be sure there is not a secondary bacterial infection, so I will continue the current antibiotics. it is too late in the illness for monoclonal antibodies or remdesivir, but probably not too late for dexamethasone which we will start now. combined with his progress in the hospital, plus covid worsens his prognosis. has tachycardia about 130. bp about 110. I've ordered a stat EKG to help figure out what to do about the rate. Objective - Vitals Vitals: Last Vital Signs Temp 37.3 C 08/11/20 10:13 Pulse 101 H 08/11/20 11:17 Resp 28 H 08/11/20 11:17 BP 110/67 08/11/20 10:13 Pulse Ox 96 08/11/20 11:17 - Abnormal Lab Findings Abnormal Lab Findings: Abnormal Lab Results 08/11/20 08/11/20 08/11/20 Range/Units 02:57 05:41 06:14 WBC 18.6 H (4.0-10.5) K/mm3 RBC 3.54 L (4.7-6.0) M/mm3 Hgb 10.2 L (13.5-18.0) gm/dL Hct 32.5 L (42.0-52.0) % MCHC 31.4 L (32-36) g/dl RDW 15.3 H (11.5-14.0) % Immature Gran % (Auto) 0.50 H (0.001-0.429) % Immature Gran # (Auto) 0.09 H (0.000-0.0310) K/mm3 Neutrophils % 89.6 H (42-75.0) % Lymphocytes % 4.2 L (20-51) % Neutrophils # 16.7 H (1.3-6.0) K/mm3 Lymphocytes # 0.78 L (1.5-3.5) k/mm3 Monocytes # 1.1 H (0.0-1.0) k/mm3 PT (9.1-10.7) Seconds INR (Anticoag Therapy) (0.92-1.08) INR pCO2 28.5 L 27.7 L (35.0-48.0) mmHg pO2 45.9 L 53.5 L (83.0-108.0) mmHg HCO3 19.7 L 19.2 L (21.0-28.0) mmol/L Base Excess -3.2 L -3.7 L (-2.0-3.0) mmol/L ABG pH 7.46 H 7.46 H (7.35-7.45) ABG O2 Sat (Measured) 85.0 L 90.0 L (94.0-98.0) % Anion Gap (6.8-13.8) mmol/L BUN (6-23) mg/dL Creatinine (0.4-1.4) mg/dL Est GFR (Non-Af Amer) (60-130) mL/min BUN/Creatinine Ratio (9.0-21.6) Random Glucose (70-110) mg/dL Albumin (3.4-5.0) gm/dl SARS-CoV-2 (PCR) (NotDetected) 08/11/20 08/11/20 08/11/20 Range/Units 06:14 06:14 11:21 WBC (4.0-10.5) K/mm3 RBC (4.7-6.0) M/mm3 Hgb (13.5-18.0) gm/dL Hct (42.0-52.0) % MCHC (32-36) g/dl RDW (11.5-14.0) % Immature Gran % (Auto) (0.001-0.429) % Immature Gran # (Auto) (0.000-0.0310) K/mm3 Neutrophils % (42-75.0) % Lymphocytes % (20-51) % Neutrophils # (1.3-6.0) K/mm3 Lymphocytes # (1.5-3.5) k/mm3 Monocytes # (0.0-1.0) k/mm3 PT 37.4 H (9.1-10.7) Seconds INR (Anticoag Therapy) 3.98 H (0.92-1.08) INR pCO2 (35.0-48.0) mmHg pO2 (83.0-108.0) mmHg HCO3 (21.0-28.0) mmol/L Base Excess (-2.0-3.0) mmol/L ABG pH (7.35-7.45) ABG O2 Sat (Measured) (94.0-98.0) % Anion Gap 14.6 H (6.8-13.8) mmol/L BUN 44 H (6-23) mg/dL Creatinine 1.60 H (0.4-1.4) mg/dL Est GFR (Non-Af Amer) 44 L (60-130) mL/min BUN/Creatinine Ratio 27.5 H (9.0-21.6) Random Glucose 145 H (70-110) mg/dL Albumin 2.7 L (3.4-5.0) gm/dl SARS-CoV-2 (PCR) Detected H (NotDetected) Assessment/Plan - Problems/Diagnosis (1) COVID-19 Problem: Acute (2) Sepsis Problem: Resolved (3) Pneumonia Problem: Acute Qualifiers: Laterality: bilateral (4) Acute respiratory failure with hypoxemia Problem: Acute (5) Hypocarbia Problem: Acute (6) Tachycardia Problem: Resolved (7) Coumadin toxicity Problem: Acute Qualifiers: Encounter type: initial encounter Injury intent: accidental or unintentional Qualified Code(s): T45.511A - Poisoning by anticoagulants, accidental (unintentional), initial encounter (8) Anemia Problem: Acute Qualifiers: Anemia type: unspecified type Qualified Code(s): D64.9 - Anemia, unspecified (9) Malnutrition Problem: Chronic Qualifiers: Malnutrition type: protein-calorie malnutrition Protein-calorie malnutrition severity: mild Qualified Code(s): E44.1 - Mild protein-calorie malnutrition (10) Elevated lactic acid level Problem: Resolved (11) Elevated troponin Problem: Resolved (12) Neutrophilic leukocytosis Problem: Acute (13) Atrial fibrillation with RVR Problem: Resolved (14) Essential hypertension Problem: Chronic (15) Oxygen desaturation during sleep Problem: Chronic
[2020-08-11] MEDS ORDERED: DILTIAZEM HCL 5 MG/ML VIAL IV STA (13:52)
--- NOTE | 2020-08-11 13:57 | PN ---
Subjective - Date and Time Seen Date: 08/11/20 Time: 13:55 Subjective Narrative: developed tachycardia today. EKG now shows a fib/fluter with ventricular rate of 127. will switch oral diltiazem to IV and titrate. Objective - Vitals Vitals: Last Vital Signs Temp 37.3 C 08/11/20 10:13 Pulse 101 H 08/11/20 11:17 Resp 28 H 08/11/20 11:17 BP 110/67 08/11/20 10:13 Pulse Ox 96 08/11/20 11:17 - Abnormal Lab Findings Abnormal Lab Findings: Abnormal Lab Results 08/11/20 08/11/20 08/11/20 Range/Units 02:57 05:41 06:14 WBC 18.6 H (4.0-10.5) K/mm3 RBC 3.54 L (4.7-6.0) M/mm3 Hgb 10.2 L (13.5-18.0) gm/dL Hct 32.5 L (42.0-52.0) % MCHC 31.4 L (32-36) g/dl RDW 15.3 H (11.5-14.0) % Immature Gran % (Auto) 0.50 H (0.001-0.429) % Immature Gran # (Auto) 0.09 H (0.000-0.0310) K/mm3 Neutrophils % 89.6 H (42-75.0) % Lymphocytes % 4.2 L (20-51) % Neutrophils # 16.7 H (1.3-6.0) K/mm3 Lymphocytes # 0.78 L (1.5-3.5) k/mm3 Monocytes # 1.1 H (0.0-1.0) k/mm3 PT (9.1-10.7) Seconds INR (Anticoag Therapy) (0.92-1.08) INR pCO2 28.5 L 27.7 L (35.0-48.0) mmHg pO2 45.9 L 53.5 L (83.0-108.0) mmHg HCO3 19.7 L 19.2 L (21.0-28.0) mmol/L Base Excess -3.2 L -3.7 L (-2.0-3.0) mmol/L ABG pH 7.46 H 7.46 H (7.35-7.45) ABG O2 Sat (Measured) 85.0 L 90.0 L (94.0-98.0) % Anion Gap (6.8-13.8) mmol/L BUN (6-23) mg/dL Creatinine (0.4-1.4) mg/dL Est GFR (Non-Af Amer) (60-130) mL/min BUN/Creatinine Ratio (9.0-21.6) Random Glucose (70-110) mg/dL Albumin (3.4-5.0) gm/dl SARS-CoV-2 (PCR) (NotDetected) 08/11/20 08/11/20 08/11/20 Range/Units 06:14 06:14 11:21 WBC (4.0-10.5) K/mm3 RBC (4.7-6.0) M/mm3 Hgb (13.5-18.0) gm/dL Hct (42.0-52.0) % MCHC (32-36) g/dl RDW (11.5-14.0) % Immature Gran % (Auto) (0.001-0.429) % Immature Gran # (Auto) (0.000-0.0310) K/mm3 Neutrophils % (42-75.0) % Lymphocytes % (20-51) % Neutrophils # (1.3-6.0) K/mm3 Lymphocytes # (1.5-3.5) k/mm3 Monocytes # (0.0-1.0) k/mm3 PT 37.4 H (9.1-10.7) Seconds INR (Anticoag Therapy) 3.98 H (0.92-1.08) INR pCO2 (35.0-48.0) mmHg pO2 (83.0-108.0) mmHg HCO3 (21.0-28.0) mmol/L Base Excess (-2.0-3.0) mmol/L ABG pH (7.35-7.45) ABG O2 Sat (Measured) (94.0-98.0) % Anion Gap 14.6 H (6.8-13.8) mmol/L BUN 44 H (6-23) mg/dL Creatinine 1.60 H (0.4-1.4) mg/dL Est GFR (Non-Af Amer) 44 L (60-130) mL/min BUN/Creatinine Ratio 27.5 H (9.0-21.6) Random Glucose 145 H (70-110) mg/dL Albumin 2.7 L (3.4-5.0) gm/dl SARS-CoV-2 (PCR) Detected H (NotDetected) Assessment/Plan - Problems/Diagnosis (1) Atrial fibrillation with RVR Problem: Acute (2) COVID-19 Problem: Acute (3) Sepsis Problem: Resolved (4) Pneumonia Problem: Acute Qualifiers: Laterality: bilateral (5) Acute respiratory failure with hypoxemia Problem: Acute (6) Hypocarbia Problem: Acute (7) Tachycardia Problem: Resolved (8) Coumadin toxicity Problem: Acute Qualifiers: Encounter type: initial encounter Injury intent: accidental or unintentional Qualified Code(s): T45.511A - Poisoning by anticoagulants, accidental (unintentional), initial encounter (9) Anemia Problem: Acute Qualifiers: Anemia type: unspecified type Qualified Code(s): D64.9 - Anemia, unspecified (10) Malnutrition Problem: Chronic Qualifiers: Malnutrition type: protein-calorie malnutrition Protein-calorie malnutrition severity: mild Qualified Code(s): E44.1 - Mild protein-calorie malnutrition (11) Elevated lactic acid level Problem: Resolved (12) Elevated troponin Problem: Resolved (13) Neutrophilic leukocytosis Problem: Acute (14) Essential hypertension Problem: Chronic (15) Oxygen desaturation during sleep Problem: Chronic
[2020-08-11] MEDS: DILTIAZEM HCL 125 MG in DEXTROSE 5 % IN WATER 100 ML IV PRN ×2 (15:09)
[2020-08-12] MEDS: DILTIAZEM HCL 125 MG in DEXTROSE 5 % IN WATER 100 ML IV PRN ×2 (01:28)
[2020-08-12] MEDS: IPRATROPIUM BROMIDE 0.5 MG/2.5 ML VIAL.NEB IH SCH ×4 (06:00→18:24)
[2020-08-12] MEDS: BUDESONIDE 0.25 MG/2 ML VIAL.NEB IH SCH ×2 (06:16→18:25)
[2020-08-12 06:39] LABS: Hematocrit 31.1 % (42.0-52.0); Hemoglobin 9.9 gm/dL (13.5-18.0); Mean Cell Volume 91.7 fl (78-100); Mean Corpuscular Hemoglobin 29.2 pg (27-31); Mean Corpuscular Hgb Conc 31.8 g/dl (32-36); Mean Platelet Volume 10.5 fl (8-11.3); Neutrophil # 10.9 K/mm3 (1.3-6.0); Neutrophil % 91.2 % (42-75.0); Platelet Count 290 K/mm3 (150-450); Red Blood Count 3.39 M/mm3 (4.7-6.0); Red Cell Distribution Width 15.5 % (11.5-14.0); White Blood Count 11.9 K/mm3 (4.0-10.5)
[2020-08-12 06:45] LABS: Prothrombin Time (Patient) 44.5 Seconds (9.1-10.7)
[2020-08-12 06:52] LABS: Albumin * 2.6 gm/dl (3.4-5.0); Anion Gap 13.5 mmol/L (6.8-13.8); BUN/Creatinine Ratio 28.7 (9.0-21.6); Ca. Corrected For Albumin 9.3 mg/dL (8.4-10.2); Calcium * 8.5 mg/dL (7.9-10.9); Carbon Dioxide 24.4 mmol/L (24-32.6); Potassium 3.9 mmol/L (3.4-4.6); Total Protein 6.3 gm/dL (6.2-8.2)
--- NOTE | 2020-08-12 06:54 | PN ---
Subjective - Date and Time Seen Date: 08/12/20 Time: 06:05 Subjective Narrative: 85-year-old male presented 3 days ago in respiratory distress. Started on CPAP by EMS. On arrival in our ER patient was in moderate distress and was switched over to BiPAP which he tolerated well. He was able to speak in complete sentences, had distant heart sounds that were irregularly irregular and tachycardia which improved on a brief course of IV diltiazem. Patient has a history of COPD which is oxygen dependent and wears 2-4 L at home by n.c. He has a history of atrial fibrillation and is on warfarin. INR results from this morning are still pending. Will restart warfarin when INR is between 2 and 3. He has had breathing problems for years but this episode worsened over several days prior to admission. Initially he was on BiPAP and with treatment he was weaned down to a simple oxygen mask until the night before last, when his O2 dropped into the 80s and he had more trouble breathing. At one point, his O2 sat dropped into the upper 70s. ABGs then showed a decrease in pO2. Applying a CPAP mask made him feel better and his blood gases improved. He seems clinically better today, so we will continue to try to taper his oxygen delivery system. ABGs this morning are still pending. He continues on CPAP. He takes oral diltiazem at home. His rate is controlled now with IV diltiazem after resumption of oral diltiazem failed to control previously. Rate is controlled now and bp is normal so we will again try to switch to oral diltiazem at a higher dose than before. He fell 4 days ago at home, because he tripped over a rug. He sustained bruises and abrasions to the right elbow and to the right evangelical. Chest discomfort from the fall is gone. The ER work-up did not show any acute EKG changes but his troponin was up slightly. Several hours it had fallen slightly, but still elevated above reference range. His lactic acid was significantly elevated initially, but normal on repeat. His procalcitonin was normal. He was hypoxic and hypocarbic on ABGs. pH was normal. Second ABG venous. CBC, ABGs and CMP still pending this morning.. CXR initially showed bilateral pneumonia and follow up xray was a little worse. Covid was negative in the ER but positive on repeat yesterday. Antibiotic choices including whether to use antivirals at this point were discussed with Dr. Eric, pharmacy, yesterday and the day before, and treatment decisions were based on those conversations. Use of decadron was also discussed. Objective - Review of Systems Generalized/Overall Review: Reports: Weakness, Malaise EENTM: Reports: No Symptoms Reported Respiratory: Reports: Cough, Shortness of Breath. Denies: Orthopnea, Wheezing Cardiac: Denies: Chest Pain, Edema Abdominal: Reports: No Symptoms Reported Genitourinary Symptoms: Reports: No Symptoms Reported Musculoskeletal Complaints: Reports: No Symptoms Reported Neurological: Reports: No Symptoms Reported Skin: Reports: No Symptoms Reported Endocrine: Reports: Intolerance to Cold, Intolerance to Heat Misc: All systems neg except as marked - Vitals Vitals: Last Vital Signs Temp 36.3 C 08/12/20 01:59 Pulse 88 08/12/20 06:21 Resp 19 08/12/20 06:21 BP 127/70 08/12/20 05:00 Pulse Ox 95 08/12/20 06:16 - Abnormal Lab Findings Abnormal Lab Findings: Abnormal Lab Results 08/11/20 08/11/20 Range/Units 06:14 11:21 PT 37.4 H (9.1-10.7) Seconds INR (Anticoag Therapy) 3.98 H (0.92-1.08) INR SARS-CoV-2 (PCR) Detected H (NotDetected) - Exam Constitutional: Present: Alert, Oriented x3, Cooperative, Well developed, No distress ENT Exam: Present: normal ENT inspection, hearing grossly normal Neck: Present: normal inspection. Absent: lymphadenopathy (R), lymphadenopathy (L), thyromegaly Respiratory: Present: lungs clear, no accessory muscle use, decreased breath sounds Cardiovascular/Chest: Present: no JVD, no murmur, irregularly irregular Abdomen: Present: Normal bowel sounds, soft, nontender, nondistended, no hepatospenomegaly, no masses /Rectal: Present: Exam deferred Extremity: Present: normal inspection, normal capillary refill Skin Exam: Present: normal color, warm/dry, no cyanosis Lymphatic: Present: no adenopathy Neurologic: Present: normal mood/affect Appearance: Present: appropriate appearance, appropriate insight, neat Eye contact: Present: cooperative, good eye contact, normal speech Thoughts: Present: normal thought pattern Assessment/Plan - Problems/Diagnosis (1) Atrial fibrillation with RVR Problem: Acute Narrative: will try switching to oral diltiazem today. will restart coumadin when INR is 2- 3 (2) COVID-19 Problem: Acute Narrative: will give decadron IV daily (3) Sepsis Problem: Resolved Narrative: will continue IV antibiotics to cover possible secondary bacterial pneumonia (4) Pneumonia Problem: Acute Qualifiers: Laterality: bilateral (5) Acute respiratory failure with hypoxemia Problem: Acute (6) Hypocarbia Problem: Acute (7) Tachycardia Problem: Resolved (8) Coumadin toxicity Problem: Acute Qualifiers: Encounter type: initial encounter Injury intent: accidental or unintentional Qualified Code(s): T45.511A - Poisoning by anticoagulants, accidental (unintentional), initial encounter (9) Anemia Problem: Acute Qualifiers: Anemia type: unspecified type Qualified Code(s): D64.9 - Anemia, unspecified Narrative: CBC pending this morning. (10) Malnutrition Problem: Chronic Qualifiers: Malnutrition type: protein-calorie malnutrition Protein-calorie malnutrition severity: mild Qualified Code(s): E44.1 - Mild protein-calorie malnutrition (11) Elevated lactic acid level Problem: Resolved (12) Elevated troponin Problem: Resolved (13) Neutrophilic leukocytosis Problem: Acute (14) Essential hypertension Problem: Chronic (15) Oxygen desaturation during sleep Problem: Chronic
[2020-08-12 06:59] LABS: INR 4.77 INR (0.92-1.08)
[2020-08-12] MEDS: PANTOPRAZOLE SODIUM 40 MG TABLET.EC PO SCH (07:05)
[2020-08-12] MEDS: DILTIAZEM HCL 60 MG TABLET PO SCH ×3 (07:15→21:09)
[2020-08-12] MEDS: DEXAMETHASONE SODIUM PHOSP/PF 10 MG/ML VIAL IV SCH (08:38)
[2020-08-12] MEDS: AMIODARONE HCL 200 MG TABLET PO SCH (08:38)
[2020-08-12] MEDS: TAMSULOSIN HCL 0.4 MG CAP.SR.24H PO SCH ×2 (08:38→21:09)
[2020-08-12] MEDS: FLUTICASONE PROPIONATE 120 SPRAY INHALER NS SCH ×2 (08:38→10:52)
[2020-08-12] MEDS: FINASTERIDE 5 MG TABLET PO SCH (08:38)
[2020-08-12] MEDS: MULTIVITAMINS 1 CAP CAPSULE PO SCH (08:38)
[2020-08-12] MEDS: CEFEPIME HCL 2 GM in DEXTROSE 5 % IN WATER 100 ML IV SCH ×4 (09:06→21:10)
[2020-08-12] MEDS: VANCOMYCIN/WATER FOR INJ (PEG) 1 GM/200 ML BAG IV SCH (09:34)
[2020-08-12] MEDS ORDERED: PHYTONADIONE (VIT K1) 5 MG TABLET PO ONE (10:15)
[2020-08-12] MEDS: guaiFENesin/DEXTROMETHORPHAN SYRUP PO PRN (10:51)
[2020-08-12] MEDS: hydrOXYzine HCL 25 MG TABLET PO PRN (17:15)
[2020-08-13] MEDS: BUDESONIDE 0.25 MG/2 ML VIAL.NEB IH SCH ×2 (06:06→18:30)
[2020-08-13] MEDS: IPRATROPIUM BROMIDE 0.5 MG/2.5 ML VIAL.NEB IH SCH ×4 (06:06→18:30)
[2020-08-13 06:48] LABS: Hematocrit 30.4 % (42.0-52.0); Hemoglobin 9.5 gm/dL (13.5-18.0); Mean Cell Volume 91.6 fl (78-100); Mean Corpuscular Hemoglobin 28.6 pg (27-31); Mean Corpuscular Hgb Conc 31.3 g/dl (32-36); Mean Platelet Volume 10.7 fl (8-11.3); Neutrophil # 10.8 K/mm3 (1.3-6.0); Neutrophil % 90.3 % (42-75.0); Platelet Count 306 K/mm3 (150-450); Red Blood Count 3.32 M/mm3 (4.7-6.0); Red Cell Distribution Width 15.5 % (11.5-14.0); White Blood Count 11.9 K/mm3 (4.0-10.5)
[2020-08-13 06:57] LABS: Prothrombin Time (Patient) 28.1 Seconds (9.1-10.7)
[2020-08-13 07:02] LABS: INR 2.96 INR (0.92-1.08)
[2020-08-13 07:04] LABS: Albumin * 2.5 gm/dl (3.4-5.0); BUN/Creatinine Ratio 33.5 (9.0-21.6); Bilirubin, Total 1.1 mg/dL (0.0-1.1); Ca. Corrected For Albumin 9.7 mg/dL (8.4-10.2); Calcium * 8.8 mg/dL (7.9-10.9); Carbon Dioxide 20.9 mmol/L (24-32.6); Potassium 3.9 mmol/L (3.4-4.6); Total Protein 6.1 gm/dL (6.2-8.2)
[2020-08-13] MEDS: PANTOPRAZOLE SODIUM 40 MG TABLET.EC PO SCH (09:14)
[2020-08-13] MEDS: DILTIAZEM HCL 60 MG TABLET PO SCH ×2 (09:14→20:58)
[2020-08-13] MEDS: MULTIVITAMINS 1 CAP CAPSULE PO SCH (09:15)
[2020-08-13] MEDS: AMIODARONE HCL 200 MG TABLET PO SCH (09:15)
[2020-08-13] MEDS: FINASTERIDE 5 MG TABLET PO SCH (09:15)
[2020-08-13] MEDS: TAMSULOSIN HCL 0.4 MG CAP.SR.24H PO SCH ×2 (09:15→20:58)
[2020-08-13] MEDS: FLUTICASONE PROPIONATE 120 SPRAY INHALER NS SCH (09:15)
[2020-08-13] MEDS: DEXAMETHASONE SODIUM PHOSP/PF 10 MG/ML VIAL IV SCH (09:18)
[2020-08-13] MEDS: CEFEPIME HCL 2 GM in DEXTROSE 5 % IN WATER 100 ML IV SCH ×4 (09:40→20:58)
[2020-08-13] MEDS: VANCOMYCIN/WATER FOR INJ (PEG) 1 GM/200 ML BAG IV SCH (11:25)
--- NOTE | 2020-08-13 13:41 | PN ---
Subjective - Date and Time Seen Date: 08/13/20 Time: 10:25 Subjective Narrative: He states today is his best day since admission. He is sitting up in a chair and is off of the CPAP. O2 sat is maintaining on an oxygen mask. He continues with a productive cough. Objective - Review of Systems Generalized/Overall Review: Denies: Fever Respiratory: Reports: Cough - Productive, Shortness of Breath Cardiac: Denies: Chest Pain Abdominal: Denies: Abdominal Pain Misc: All systems neg except as marked - Vitals Vitals: Last Vital Signs Temp 36.3 C 08/13/20 09:50 Pulse 85 08/13/20 12:46 Resp 28 H 08/13/20 10:10 BP 142/73 08/13/20 09:50 Pulse Ox 99 08/13/20 10:00 - Abnormal Lab Findings Abnormal Lab Findings: Abnormal Lab Results 08/12/20 08/12/20 08/13/20 Range/Units 13:30 15:00 05:59 WBC (4.0-10.5) K/mm3 RBC (4.7-6.0) M/mm3 Hgb (13.5-18.0) gm/dL Hct (42.0-52.0) % MCHC (32-36) g/dl RDW (11.5-14.0) % Immature Gran % (Auto) (0.001-0.429) % Immature Gran # (Auto) (0.000-0.0310) K/mm3 Neutrophils % (42-75.0) % Lymphocytes % (20-51) % Neutrophils # (1.3-6.0) K/mm3 Lymphocytes # (1.5-3.5) k/mm3 PT (9.1-10.7) Seconds INR (Anticoag Therapy) (0.92-1.08) INR PTT ([place]) 54.5 H (24-32) Seconds pCO2 22.9 L 26.3 L (35.0-48.0) mmHg pO2 47.7 L 55.0 L (83.0-108.0) mmHg HCO3 15.8 L 18.4 L (21.0-28.0) mmol/L Total CO2 16.5 L (19.0-24.0) mmol/L Base Excess -6.5 L -4.2 L (-2.0-3.0) mmol/L ABG pH 7.46 H 7.46 H (7.35-7.45) ABG O2 Sat (Measured) 86.7 L 90.9 L (94.0-98.0) % Carbon Dioxide (24-32.6) mmol/L Anion Gap (6.8-13.8) mmol/L BUN (6-23) mg/dL Creatinine (0.4-1.4) mg/dL Est GFR (Non-Af Amer) (60-130) mL/min BUN/Creatinine Ratio (9.0-21.6) Random Glucose (70-110) mg/dL Total Protein (6.2-8.2) gm/dL Albumin (3.4-5.0) gm/dl 08/13/20 08/13/20 08/13/20 Range/Units 06:00 06:19 06:19 WBC 11.9 H (4.0-10.5) K/mm3 RBC 3.32 L (4.7-6.0) M/mm3 Hgb 9.5 L (13.5-18.0) gm/dL Hct 30.4 L (42.0-52.0) % MCHC 31.3 L (32-36) g/dl RDW 15.5 H (11.5-14.0) % Immature Gran % (Auto) 0.80 H (0.001-0.429) % Immature Gran # (Auto) 0.09 H (0.000-0.0310) K/mm3 Neutrophils % 90.3 H (42-75.0) % Lymphocytes % 5.2 L (20-51) % Neutrophils # 10.8 H (1.3-6.0) K/mm3 Lymphocytes # 0.62 L (1.5-3.5) k/mm3 PT 28.1 H (9.1-10.7) Seconds INR (Anticoag Therapy) 2.96 H (0.92-1.08) INR PTT (Jae) (24-32) Seconds pCO2 (35.0-48.0) mmHg pO2 (83.0-108.0) mmHg HCO3 (21.0-28.0) mmol/L Total CO2 (19.0-24.0) mmol/L Base Excess (-2.0-3.0) mmol/L ABG pH (7.35-7.45) ABG O2 Sat (Measured) (94.0-98.0) % Carbon Dioxide 20.9 L (24-32.6) mmol/L Anion Gap 16.0 H (6.8-13.8) mmol/L BUN 56 H (6-23) mg/dL Creatinine 1.67 H (0.4-1.4) mg/dL Est GFR (Non-Af Amer) 42 L (60-130) mL/min BUN/Creatinine Ratio 33.5 H (9.0-21.6) Random Glucose 148 H (70-110) mg/dL Total Protein 6.1 L (6.2-8.2) gm/dL Albumin 2.5 L (3.4-5.0) gm/dl - Exam Constitutional: Present: Alert, Cooperative, Well developed, Well nourished, No distress, Elderly ENT Exam: Present: hearing grossly normal Neck: Present: non-tender, supple. Absent: lymphadenopathy (R), lymphadenopathy (L) Respiratory: Present: lungs clear, no respiratory distress, no accessory muscle use, No wheezing. Absent: rhonchi Cardiovascular/Chest: Present: normal peripheral pulses, no murmur, irregularly irregular Abdomen: Present: Normal bowel sounds, soft, nontender Extremity: Present: no pedal edema Skin Exam: Present: normal color, warm/dry Neurologic: Present: alert, normal mood/affect Appearance: Present: appropriate appearance, appropriate insight Eye contact: Present: cooperative Thoughts: Present: normal mood /affect Assessment/Plan Plan Narrative: 85-year-old male with a past medical history of hypertension, asthma, carotid artery stenosis, atrial fibrillation on anticoagulation presents with acute respiratory failure requiring CPAP, and COVID-19 pneumonia. Today he was transitioned off of the CPAP and is tolerating the oxygen mask with 15 L of oxygen. He states, today he feels the best that he has felt since admission. He is sitting up in a chair. INR today is 2.96. I will restart his on Coumadin for his A. fib. Plan #1 continue to taper down the oxygen as tolerated #2 Continue Coumadin and INR monitoring per pharmacist #3 continue home medications for comorbidities #4 continue with dexamethasone - Problems/Diagnosis (1) Pneumonia due to COVID-19 virus Problem: Acute (2) Acute respiratory failure with hypoxemia Problem: Acute (3) Atrial fibrillation Problem: Acute (4) Essential hypertension Problem: Chronic (5) Hyperlipidemia Problem: Chronic Qualifiers: Hyperlipidemia type: unspecified Qualified Code(s): E78.5 - Hyperlipidemia, unspecified (6) Chronic anemia Problem: Acute
[2020-08-13] MEDS: hydrOXYzine HCL 25 MG TABLET PO PRN ×2 (14:21→21:22)
[2020-08-13] MEDS ORDERED: WARFARIN SODIUM 2 MG TABLET PO SCH (17:00)
[2020-08-14] MEDS: IPRATROPIUM BROMIDE 0.5 MG/2.5 ML VIAL.NEB IH SCH ×5 (05:49→18:35)
[2020-08-14] MEDS: BUDESONIDE 0.25 MG/2 ML VIAL.NEB IH SCH ×3 (05:50→18:35)
[2020-08-14] MEDS: PANTOPRAZOLE SODIUM 40 MG TABLET.EC PO SCH (06:37)
[2020-08-14] MEDS: MULTIVITAMINS 1 CAP CAPSULE PO SCH (08:36)
[2020-08-14] MEDS: AMIODARONE HCL 200 MG TABLET PO SCH (08:36)
[2020-08-14] MEDS: DILTIAZEM HCL 60 MG TABLET PO SCH ×2 (08:36→21:20)
[2020-08-14] MEDS: TAMSULOSIN HCL 0.4 MG CAP.SR.24H PO SCH ×2 (08:36→21:20)
[2020-08-14] MEDS: FINASTERIDE 5 MG TABLET PO SCH (08:36)
[2020-08-14] MEDS: FLUTICASONE PROPIONATE 120 SPRAY INHALER NS SCH (08:37)
[2020-08-14] MEDS: DEXAMETHASONE SODIUM PHOSP/PF 10 MG/ML VIAL IV SCH (08:37)
[2020-08-14] MEDS: CEFEPIME HCL 2 GM in DEXTROSE 5 % IN WATER 100 ML IV SCH ×4 (09:07→21:20)
[2020-08-14] MEDS ORDERED: VANCOMYCIN HCL LEVEL XX ONE (10:00)
[2020-08-14 10:12] LABS: Hematocrit 31.9 % (42.0-52.0); Mean Cell Volume 91.4 fl (78-100); Mean Corpuscular Hemoglobin 28.7 pg (27-31); Mean Corpuscular Hgb Conc 31.3 g/dl (32-36); Mean Platelet Volume 10.6 fl (8-11.3); Neutrophil # 14.2 K/mm3 (1.3-6.0); Neutrophil % 91.2 % (42-75.0); Platelet Count 365 K/mm3 (150-450); Red Blood Count 3.49 M/mm3 (4.7-6.0); Red Cell Distribution Width 15.6 % (11.5-14.0); White Blood Count 15.6 K/mm3 (4.0-10.5)
[2020-08-14 10:22] LABS: INR 2.14 INR (0.92-1.08); Prothrombin Time (Patient) 20.6 Seconds (9.1-10.7)
[2020-08-14 10:31] LABS: Albumin * 2.8 gm/dl (3.4-5.0); Anion Gap 18.5 mmol/L (6.8-13.8); BUN/Creatinine Ratio 35.5 (9.0-21.6); Bilirubin, Total 1.1 mg/dL (0.0-1.1); Ca. Corrected For Albumin 9.2 mg/dL (8.4-10.2); Calcium * 8.6 mg/dL (7.9-10.9); Carbon Dioxide 19.9 mmol/L (24-32.6); Potassium 4.4 mmol/L (3.4-4.6); Total Protein 6.5 gm/dL (6.2-8.2)
[2020-08-14] MEDS: VANCOMYCIN/WATER FOR INJ (PEG) 1 GM/200 ML BAG IV SCH (11:14)
[2020-08-14] MEDS: WARFARIN SODIUM 3 MG TABLET PO SCH (16:36)
--- NOTE | 2020-08-14 16:52 | PN ---
Subjective - Date and Time Seen Date: 08/14/20 Time: 13:10 Subjective Narrative: Breathing easy in bed, oxy mask on. Continues to feel better each day byt still endorses productive cough and sob with activity. NO fevers, no chills. No adverse reactions overnight. Objective - Review of Systems Generalized/Overall Review: Reports: Weakness. Denies: Chills, Fever EENTM: Reports: No Symptoms Reported Respiratory: Reports: Cough, Shortness of Breath Cardiac: Denies: Chest Pain, Edema Abdominal: Reports: Constipation Genitourinary Symptoms: Reports: No Symptoms Reported Neurological: Reports: No Symptoms Reported Endocrine: Reports: No Symptoms Reported - Vitals Vitals: Last Vital Signs Temp 35.9 C L 08/14/20 14:48 Pulse 79 08/14/20 14:48 Resp 24 H 08/14/20 14:48 BP 111/53 08/14/20 14:48 Pulse Ox 90 L 08/14/20 14:48 - Abnormal Lab Findings Abnormal Lab Findings: Abnormal Lab Results 08/14/20 08/14/20 08/14/20 Range/Units 10:03 10:03 10:03 WBC 15.6 H D (4.0-10.5) K/mm3 RBC 3.49 L (4.7-6.0) M/mm3 Hgb 10.0 L (13.5-18.0) gm/dL Hct 31.9 L (42.0-52.0) % MCHC 31.3 L (32-36) g/dl RDW 15.6 H (11.5-14.0) % Immature Gran % (Auto) 1.10 H (0.001-0.429) % Immature Gran # (Auto) 0.17 H (0.000-0.0310) K/mm3 Neutrophils % 91.2 H (42-75.0) % Lymphocytes % 3.7 L (20-51) % Neutrophils # 14.2 H (1.3-6.0) K/mm3 Lymphocytes # 0.57 L (1.5-3.5) k/mm3 PT 20.6 H (9.1-10.7) Seconds INR (Anticoag Therapy) 2.14 H (0.92-1.08) INR Carbon Dioxide 19.9 L (24-32.6) mmol/L Anion Gap 18.5 H (6.8-13.8) mmol/L BUN 66 H (6-23) mg/dL Creatinine 1.86 H (0.4-1.4) mg/dL Est GFR (Non-Af Amer) 37 L (60-130) mL/min BUN/Creatinine Ratio 35.5 H (9.0-21.6) Random Glucose 177 H (70-110) mg/dL Albumin 2.8 L (3.4-5.0) gm/dl - Exam Constitutional: Present: Alert, Oriented x3, Cooperative, Acute distress ENT Exam: Present: hearing grossly normal Respiratory: Present: lungs clear, decreased breath sounds Cardiovascular/Chest: Present: no murmur, irregularly irregular Abdomen: Present: Normal bowel sounds, soft, nontender. Absent: guarding, rigidity Eye contact: Present: cooperative, good eye contact Thoughts: Present: normal thought pattern, normal mood /affect Assessment/Plan Plan Narrative: Hypoxia improving as patient no longer on CPAP. He still gets pretty tired with activity. He is on the appropriate medications. Colace for constipation Continue other meds for chronic co morbidities. VSS, afebrile. Nurse to call with questions or concerns. Wean o2 as tolerated. - Problems/Diagnosis (1) Acute respiratory failure with hypoxemia Problem: Acute (2) Pneumonia due to COVID-19 virus Problem: Acute (3) Dyspnea on exertion Problem: Chronic
[2020-08-15] MEDS: IPRATROPIUM BROMIDE 0.5 MG/2.5 ML VIAL.NEB IH SCH ×5 (05:48→18:11)
[2020-08-15] MEDS: BUDESONIDE 0.25 MG/2 ML VIAL.NEB IH SCH ×3 (05:49→18:11)
[2020-08-15 06:22] LABS: Prothrombin Time (Patient) 22.8 Seconds (9.1-10.7)
[2020-08-15] MEDS: PANTOPRAZOLE SODIUM 40 MG TABLET.EC PO SCH (06:30)
[2020-08-15 06:33] LABS: INR 2.38 INR (0.92-1.08)
[2020-08-15] MEDS: MULTIVITAMINS 1 CAP CAPSULE PO SCH (08:17)
[2020-08-15] MEDS: DILTIAZEM HCL 60 MG TABLET PO SCH ×2 (08:17→21:30)
[2020-08-15] MEDS: TAMSULOSIN HCL 0.4 MG CAP.SR.24H PO SCH ×2 (08:18→21:30)
[2020-08-15] MEDS: FINASTERIDE 5 MG TABLET PO SCH (08:18)
[2020-08-15] MEDS: AMIODARONE HCL 200 MG TABLET PO SCH (08:18)
[2020-08-15] MEDS: DEXAMETHASONE SODIUM PHOSP/PF 10 MG/ML VIAL IV SCH (08:18)
[2020-08-15] MEDS: FLUTICASONE PROPIONATE 120 SPRAY INHALER NS SCH (08:19)
[2020-08-15] MEDS: CEFEPIME HCL 2 GM in DEXTROSE 5 % IN WATER 100 ML IV SCH ×4 (09:00→21:30)
[2020-08-15] MEDS: VANCOMYCIN/WATER FOR INJ (PEG) 1 GM/200 ML BAG IV SCH (10:55)
[2020-08-15] MEDS: WARFARIN SODIUM 3 MG TABLET PO SCH (16:51)
[2020-08-15] MEDS: hydrOXYzine HCL 25 MG TABLET PO PRN (22:16)
[2020-08-16] MEDS: IPRATROPIUM BROMIDE 0.5 MG/2.5 ML VIAL.NEB IH SCH ×4 (05:40→18:03)
[2020-08-16] MEDS: BUDESONIDE 0.25 MG/2 ML VIAL.NEB IH SCH ×2 (05:40→18:04)
--- NOTE | 2020-08-16 05:58 | PN ---
Subjective - Date and Time Seen Date: 08/15/20 Time: 11:30 Subjective Narrative: He reports no change. Cough and shortness of breath at times. Currently at 13lpm on oximask. No new symptoms today. Objective - Vitals Vitals: Last Vital Signs Temp 36.4 C 08/16/20 02:33 Pulse 91 08/16/20 02:33 Resp 17 08/16/20 02:33 BP 131/55 08/16/20 02:33 Pulse Ox 94 08/16/20 02:33 - Abnormal Lab Findings Abnormal Lab Findings: Abnormal Lab Results 08/15/20 Range/Units 06:10 PT 22.8 H (9.1-10.7) Seconds INR (Anticoag Therapy) 2.38 H (0.92-1.08) INR - Exam Constitutional: Present: Alert, Oriented x3, Cooperative ENT Exam: Present: hearing grossly normal Respiratory: Present: decreased breath sounds Cardiovascular/Chest: Present: no murmur, irregularly irregular Abdomen: Present: Normal bowel sounds, soft, nontender, nondistended Skin Exam: Present: normal color, warm/dry, no cyanosis Assessment/Plan Plan Narrative: Continue current treatment. Continue to wean off oxygen as able. No changes in plan today. - Problems/Diagnosis (1) Acute respiratory failure with hypoxemia Problem: Acute (2) Atrial fibrillation with RVR Problem: Acute (3) Pneumonia due to COVID-19 virus Problem: Acute
[2020-08-16 07:17] LABS: Prothrombin Time (Patient) 28.9 Seconds (9.1-10.7)
[2020-08-16 07:21] LABS: INR 3.05 INR (0.92-1.08)
[2020-08-16] MEDS: PANTOPRAZOLE SODIUM 40 MG TABLET.EC PO SCH (07:46)
[2020-08-16] MEDS: AMIODARONE HCL 200 MG TABLET PO SCH (10:09)
[2020-08-16] MEDS: DILTIAZEM HCL 60 MG TABLET PO SCH ×2 (10:09→21:44)
[2020-08-16] MEDS: MULTIVITAMINS 1 CAP CAPSULE PO SCH (10:11)
[2020-08-16] MEDS: TAMSULOSIN HCL 0.4 MG CAP.SR.24H PO SCH ×2 (10:11→21:48)
[2020-08-16] MEDS: FINASTERIDE 5 MG TABLET PO SCH (10:11)
[2020-08-16] MEDS: DEXAMETHASONE SODIUM PHOSP/PF 10 MG/ML VIAL IV SCH (10:12)
[2020-08-16] MEDS: CEFEPIME HCL 2 GM in DEXTROSE 5 % IN WATER 100 ML IV SCH ×4 (10:17→21:47)
[2020-08-16] MEDS: FLUTICASONE PROPIONATE 120 SPRAY INHALER NS SCH (10:38)
[2020-08-16] MEDS: VANCOMYCIN/WATER FOR INJ (PEG) 1 GM/200 ML BAG IV SCH (11:04)
--- NOTE | 2020-08-16 23:44 | PN ---
Subjective - Date and Time Seen Date: 08/16/20 Time: 09:45 Subjective Narrative: Dg is on 8lpm of oxygen and reports feeling ok. No nausea or vomiting. Appetite ok. Objective - Vitals Vitals: Last Vital Signs Temp 36.3 C 08/16/20 23:15 Pulse 100 08/16/20 23:15 Resp 26 H 08/16/20 23:15 BP 106/58 08/16/20 23:15 Pulse Ox 91 L 08/16/20 23:15 - Abnormal Lab Findings Abnormal Lab Findings: Abnormal Lab Results 08/16/20 Range/Units 07:00 PT 28.9 H (9.1-10.7) Seconds INR (Anticoag Therapy) 3.05 H (0.92-1.08) INR - Exam Constitutional: Present: Alert, Oriented x3, Cooperative ENT Exam: Present: hearing grossly normal Respiratory: Present: decreased breath sounds Cardiovascular/Chest: Present: regular rate, rhythm, no murmur Abdomen: Present: Normal bowel sounds, soft, nontender, nondistended Skin Exam: Present: normal color, warm/dry, no cyanosis Appearance: Present: appropriate appearance, appropriate insight Eye contact: Present: cooperative, good eye contact, normal speech Thoughts: Present: normal thought pattern, no apparent hallucination Assessment/Plan Plan Narrative: Overall improved today. His oxygen has been titrated from 10lpm down to 8lpm. Continue treatment and weaning as able. - Problems/Diagnosis (1) Acute respiratory failure with hypoxemia Problem: Acute (2) Atrial fibrillation with RVR Problem: Acute (3) Pneumonia due to COVID-19 virus Problem: Acute
[2020-08-17] MEDS: IPRATROPIUM BROMIDE 0.5 MG/2.5 ML VIAL.NEB IH SCH ×4 (06:15→18:21)
[2020-08-17] MEDS: BUDESONIDE 0.25 MG/2 ML VIAL.NEB IH SCH ×2 (06:16→18:21)
[2020-08-17] MEDS: PANTOPRAZOLE SODIUM 40 MG TABLET.EC PO SCH (06:54)
--- NOTE | 2020-08-17 06:57 | PN ---
Subjective - Date and Time Seen Date: 08/17/20 Time: 06:15 Subjective Narrative: 85-year-old male presented originally in respiratory distress. Found to have Covid pneumonia, but only a few days after admission by repeat Covid testing. Original Covid was negative on admission, but turned out to be also positive on retest after the second test returned positive. Too late in course to start immunologicals. On antibacterials to cover possible secondary infection. 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 Always desats when up. At present, on mask at 10 liters per minute. Appears comfortable on exam this morning. Desats when up, as he does routinely at home. Has become a little more forgetful than usual. No BM for 3 days. Poor oral intake confirmed by slowly increasing BUN and Creatinine. Will push fluids and repeat BMP. He has a history of atrial fibr illation and is on warfarin. 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 Objective - Review of Systems Generalized/Overall Review: Reports: Malaise EENTM: Reports: No Symptoms Reported Respiratory: Reports: Other - haider. Denies: Cough Cardiac: Reports: No Symptoms Reported Abdominal: Reports: Constipation. Denies: Abdominal Pain Genitourinary Symptoms: Reports: No Symptoms Reported Musculoskeletal Complaints: Reports: No Symptoms Reported Neurological: Reports: No Symptoms Reported Skin: Reports: No Symptoms Reported Endocrine: Denies: Intolerance to Cold, Intolerance to Heat Misc: All systems neg except as marked - Vitals Vitals: Last Vital Signs Temp 36.3 C 08/17/20 01:54 Pulse 104 H 08/17/20 06:21 Resp 18 08/17/20 06:21 BP 121/25 08/17/20 01:54 Pulse Ox 95 08/17/20 06:16 - Abnormal Lab Findings Abnormal Lab Findings: Abnormal Lab Results 08/16/20 Range/Units 07:00 PT 28.9 H (9.1-10.7) Seconds INR (Anticoag Therapy) 3.05 H (0.92-1.08) INR - Exam Constitutional: Present: Alert, Cooperative, Well developed, Other - forgetful ENT Exam: Present: normal ENT inspection. Absent: hearing grossly normal Neck: Present: normal inspection. Absent: lymphadenopathy (R), lymphadenopathy (L), thyromegaly Breasts: Present: Other - male Respiratory: Present: lungs clear, no respiratory distress, decreased breath sounds Cardiovascular/Chest: Present: regular rate, rhythm, no edema, no gallop, no JVD, no murmur Abdomen: Present: Normal bowel sounds, soft, nontender, nondistended, no hepatospenomegaly, no masses /Rectal: Present: Exam deferred Extremity: Present: normal inspection, normal capillary refill Skin Exam: Present: normal color, warm/dry, no cyanosis Lymphatic: Present: no adenopathy Neurologic: Present: normal mood/affect Appearance: Present: appropriate appearance, neat. Absent: appropriate insight, no memory impairment Eye contact: Present: cooperative, good eye contact, normal speech Thoughts: Present: normal thought pattern Assessment/Plan - Problems/Diagnosis (1) Atrial fibrillation with RVR Problem: Acute Narrative: rate controlled. continue current meds. INR tomorrow. (2) COVID-19 Problem: Acute (3) Sepsis Problem: Resolved (4) Pneumonia Problem: Acute Qualifiers: Laterality: bilateral (5) Acute respiratory failure with hypoxemia Problem: Acute Narrative: will work at tapering O2. Goal is O2 sat more than 88% at rest. I expect he will continue to drop with activity. He is in no distress this morning. (6) Hypocarbia Problem: Acute (7) Tachycardia Problem: Resolved (8) Coumadin toxicity Problem: Acute Qualifiers: Encounter type: initial encounter Injury intent: accidental or unintentional Qualified Code(s): T45.511A - Poisoning by anticoagulants, accidental (unintentional), initial encounter (9) Anemia Problem: Acute Qualifiers: Anemia type: unspecified type Qualified Code(s): D64.9 - Anemia, unspecified (10) Malnutrition Problem: Chronic Qualifiers: Malnutrition type: protein-calorie malnutrition Protein-calorie malnutrition severity: mild Qualified Code(s): E44.1 - Mild protein-calorie malnutrition (11) Elevated lactic acid level Problem: Resolved (12) Elevated troponin Problem: Resolved (13) Neutrophilic leukocytosis Problem: Acute (14) Essential hypertension Problem: Chronic (15) Oxygen desaturation during sleep Problem: Chronic
[2020-08-17 07:03] LABS: Prothrombin Time (Patient) 30.9 Seconds (9.1-10.7)
[2020-08-17 07:05] LABS: Anion Gap 15.3 mmol/L (6.8-13.8); BUN/Creatinine Ratio 35.7 (9.0-21.6); Calcium * 8.2 mg/dL (7.9-10.9); Carbon Dioxide 19.6 mmol/L (24-32.6); Estimated Creat Clear 29.9; Potassium 4.9 mmol/L (3.4-4.6)
[2020-08-17 07:07] LABS: INR 3.27 INR (0.92-1.08)
[2020-08-17] MEDS: DOCUSATE SODIUM 100 MG CAPSULE PO SCH ×2 (08:36→20:04)
[2020-08-17] MEDS: DILTIAZEM HCL 60 MG TABLET PO SCH ×2 (08:36→20:04)
[2020-08-17] MEDS: DEXAMETHASONE SODIUM PHOSP/PF 10 MG/ML VIAL IV SCH (08:37)
[2020-08-17] MEDS: TAMSULOSIN HCL 0.4 MG CAP.SR.24H PO SCH ×2 (08:37→20:04)
[2020-08-17] MEDS: AMIODARONE HCL 200 MG TABLET PO SCH (08:37)
[2020-08-17] MEDS: MULTIVITAMINS 1 CAP CAPSULE PO SCH (08:37)
[2020-08-17] MEDS: FINASTERIDE 5 MG TABLET PO SCH (08:37)
[2020-08-17] MEDS: FLUTICASONE PROPIONATE 120 SPRAY INHALER NS SCH (08:38)
[2020-08-17] MEDS: CEFEPIME HCL 2 GM in DEXTROSE 5 % IN WATER 100 ML IV SCH ×4 (09:15→20:45)
[2020-08-17] MEDS ORDERED: VANCOMYCIN HCL LEVEL XX ONE (10:00)
[2020-08-17] MEDS: VANCOMYCIN/WATER FOR INJ (PEG) 1 GM/200 ML BAG IV SCH (10:54)
[2020-08-17] MEDS: hydrOXYzine HCL 25 MG TABLET PO PRN (14:05)
--- NOTE | 2020-08-17 14:39 | PN ---
Progess Note - Interim Date: 08/17/20 Time: 14:38 Narrative: 08/17/20 14:38 INR is elevated even though holding warfarin. will continue to hold warfarin and check INR in a couple of days.
[2020-08-18] MEDS: hydrOXYzine HCL 10 MG TABLET PO PRN ×2 (04:42→20:25)
[2020-08-18] MEDS: IPRATROPIUM BROMIDE 0.5 MG/2.5 ML VIAL.NEB IH SCH ×4 (06:00→18:11)
[2020-08-18] MEDS: BUDESONIDE 0.25 MG/2 ML VIAL.NEB IH SCH ×2 (06:00→18:12)
[2020-08-18 06:47] LABS: Anion Gap 17.2 mmol/L (6.8-13.8); BUN/Creatinine Ratio 31.3 (9.0-21.6); Calcium * 8.8 mg/dL (7.9-10.9); Carbon Dioxide 18.8 mmol/L (24-32.6); Estimated Creat Clear 28.8
[2020-08-18] MEDS: PANTOPRAZOLE SODIUM 40 MG TABLET.EC PO SCH (06:47)
[2020-08-18 06:48] LABS: INR 2.62 INR (0.92-1.08)
[2020-08-18] MEDS ORDERED: MAGNESIUM CITRATE 300 ML BTL PO ONE (07:45)
--- NOTE | 2020-08-18 08:14 | PN ---
Subjective - Date and Time Seen Date: 08/18/20 Time: 06:25 Subjective Narrative: 85-year-old male here for respiratory distress and Covid pneumonia. Found to have Covid pneumonia, but only a few days after admission by repeat Covid testing. On antibacterials to cover possible secondary infection, will give a total of 10 days. 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 Always desats when up. At present, on n.c. at 10 liters per minute. Appears comfortable on exam this morning. Desats when up. Has become a little more forgetful than usual. No BM since 08/15. Poor oral intake confirmed by slowly increasing BUN and Creatinine. Will again encourage push fluids and repeat BMP. He has a history of atrial fibrillation and is on warfarin. INR has been too high for coumadin. Today is in goal range. After discussing with Dr. Eric, will restart coumadin at 4 mg daily and follow INR. 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 He has been up more yesterday. We will encourage activity. Hopefully we can send him home soon. Objective - Review of Systems Generalized/Overall Review: Reports: Weakness EENTM: Reports: No Symptoms Reported Respiratory: Reports: Shortness of Breath Cardiac: Reports: No Symptoms Reported Abdominal: Reports: Constipation - no bm since 08/15 Genitourinary Symptoms: Reports: Nocturia Musculoskeletal Complaints: Reports: No Symptoms Reported Neurological: Reports: Other - slight increase in his usual memory problems Skin: Reports: No Symptoms Reported Endocrine: Reports: Intolerance to Cold, Intolerance to Heat Misc: All systems neg except as marked - Vitals Vitals: Last Vital Signs Temp 36.9 C 08/18/20 03:06 Pulse 100 08/18/20 06:10 Resp 24 H 08/18/20 06:10 BP 116/68 08/18/20 03:06 Pulse Ox 89 L 08/18/20 07:30 - Abnormal Lab Findings Abnormal Lab Findings: Abnormal Lab Results 08/18/20 08/18/20 Range/Units 06:35 06:35 PT 25.0 H (9.1-10.7) Seconds INR (Anticoag Therapy) 2.62 H (0.92-1.08) INR Potassium 5.0 H (3.4-4.6) mmol/L Carbon Dioxide 18.8 L (24-32.6) mmol/L Anion Gap 17.2 H (6.8-13.8) mmol/L BUN 51 H (6-23) mg/dL Creatinine 1.63 H (0.4-1.4) mg/dL Est GFR (Non-Af Amer) 43 L (60-130) mL/min BUN/Creatinine Ratio 31.3 H (9.0-21.6) Random Glucose 149 H (70-110) mg/dL - Exam Constitutional: Present: Alert, Oriented x3, Cooperative, Well developed, No distress, Other - thin ENT Exam: Present: normal ENT inspection, hearing grossly normal Neck: Present: normal inspection. Absent: lymphadenopathy (R), lymphadenopathy (L), thyromegaly Breasts: Present: Other - male Respiratory: Present: lungs clear, no respiratory distress, no accessory muscle use, decreased breath sounds Cardiovascular/Chest: Present: regular rate, rhythm, no edema, no gallop, no JVD, no murmur Abdomen: Present: Normal bowel sounds, soft, nontender, nondistended, no hepatospenomegaly, no masses Extremity: Present: normal inspection, normal capillary refill Skin Exam: Present: normal color, warm/dry, no cyanosis Lymphatic: Present: no adenopathy Neurologic: Present: alert, other - anxious Appearance: Present: appropriate appearance, neat, impaired recent memory Eye contact: Present: cooperative, good eye contact, normal speech Thoughts: Present: normal thought pattern Assessment/Plan - Problems/Diagnosis (1) Nocturia Problem: Acute Narrative: check UA (2) Constipation Problem: Acute Narrative: Laxatives, increase activity (3) Atrial fibrillation with RVR Problem: Acute (4) COVID-19 Problem: Acute (5) Sepsis Problem: Resolved (6) Pneumonia Problem: Acute Qualifiers: Laterality: bilateral (7) Acute respiratory failure with hypoxemia Problem: Acute (8) Hypocarbia Problem: Acute (9) Tachycardia Problem: Resolved (10) Coumadin toxicity Problem: Acute Qualifiers: Encounter type: initial encounter Injury intent: accidental or unintentional Qualified Code(s): T45.511A - Poisoning by anticoagulants, accidental (unintentional), initial encounter (11) Anemia Problem: Acute Qualifiers: Anemia type: unspecified type Qualified Code(s): D64.9 - Anemia, unspecified (12) Malnutrition Problem: Chronic Qualifiers: Malnutrition type: protein-calorie malnutrition Protein-calorie malnutrition severity: mild Qualified Code(s): E44.1 - Mild protein-calorie malnutrition (13) Elevated lactic acid level Problem: Resolved (14) Elevated troponin Problem: Resolved (15) Neutrophilic leukocytosis Problem: Acute (16) Essential hypertension Problem: Chronic (17) Oxygen desaturation during sleep Problem: Chronic
[2020-08-18] MEDS: DOCUSATE SODIUM 100 MG CAPSULE PO SCH ×2 (08:51→20:17)
[2020-08-18] MEDS: AMIODARONE HCL 200 MG TABLET PO SCH (08:51)
[2020-08-18] MEDS: TAMSULOSIN HCL 0.4 MG CAP.SR.24H PO SCH ×2 (08:51→20:18)
[2020-08-18] MEDS: MULTIVITAMINS 1 CAP CAPSULE PO SCH (08:51)
[2020-08-18] MEDS: DILTIAZEM HCL 60 MG TABLET PO SCH ×2 (08:51→20:18)
[2020-08-18] MEDS: FLUTICASONE PROPIONATE 120 SPRAY INHALER NS SCH (08:52)
[2020-08-18] MEDS: DEXAMETHASONE SODIUM PHOSP/PF 10 MG/ML VIAL IV SCH (08:52)
[2020-08-18] MEDS ORDERED: MAGNESIUM CITRATE 300 ML BTL ONE (08:55)
[2020-08-18] MEDS ORDERED: MAGNESIUM HYDROXIDE 30 ML UDC PO SCH (09:00)
[2020-08-18] MEDS: CEFEPIME HCL 2 GM in DEXTROSE 5 % IN WATER 100 ML IV SCH ×4 (09:00→20:45)
[2020-08-18] MEDS: FINASTERIDE 5 MG TABLET PO SCH (09:03)
[2020-08-18] MEDS: VANCOMYCIN/WATER FOR INJ (PEG) 1 GM/200 ML BAG IV SCH (10:13)
[2020-08-18 11:20] LABS: Urine Bilirubin Negative (NEGATIVE); Urine Blood 50 /ul (NEGATIVE); Urine Ketone Negative (NEGATIVE); Urine Nitrite Negative (NEGATIVE); Urine Protein 15 mg/dL (NEGATIVE); Urine Urobilinogen Normal (NORMAL)
[2020-08-18 11:27] LABS: Urine Appearance Slightly Cloudy (CLEAR); Urine Bacteria 1+; Urine Color Yellow; Urine RBC None Seen /hpf (0-5); Urine WBC 0-5 /hpf (0-5)
[2020-08-18] MEDS: MAGNESIUM HYDROXIDE 30 ML UDC PO PRN (16:01)
[2020-08-18] MEDS ORDERED: WARFARIN SODIUM 1 MG TABLET PO SCH (17:00)
[2020-08-18] MEDS: MAGNESIUM CITRATE 300 ML BTL PO SCH (20:19)
[2020-08-19] MEDS: hydrOXYzine HCL 10 MG TABLET PO PRN (01:57)
[2020-08-19] MEDS: MAGNESIUM CITRATE 300 ML BTL PO SCH ×3 (01:57→20:26)
[2020-08-19] MEDS: MAGNESIUM HYDROXIDE 30 ML UDC PO PRN (01:57)
[2020-08-19] MEDS: IPRATROPIUM BROMIDE 0.5 MG/2.5 ML VIAL.NEB IH SCH ×4 (06:14→18:00)
[2020-08-19] MEDS: BUDESONIDE 0.25 MG/2 ML VIAL.NEB IH SCH ×2 (06:15→18:14)
[2020-08-19] MEDS: PANTOPRAZOLE SODIUM 40 MG TABLET.EC PO SCH (06:19)
[2020-08-19 06:47] LABS: Hematocrit 34.9 % (42.0-52.0); Hemoglobin 11.4 gm/dL (13.5-18.0); INR 2.42 INR (0.92-1.08); Mean Corpuscular Hemoglobin 29.1 pg (27-31); Mean Corpuscular Hgb Conc 32.7 g/dl (32-36); Mean Platelet Volume 11.1 fl (8-11.3); Platelet Count 346 K/mm3 (150-450); Prothrombin Time (Patient) 23.2 Seconds (9.1-10.7); Red Blood Count 3.92 M/mm3 (4.7-6.0); Red Cell Distribution Width 16.1 % (11.5-14.0); White Blood Count 29.5 K/mm3 (4.0-10.5)
[2020-08-19 06:48] LABS: Total Cells Counted 100
[2020-08-19 06:53] LABS: Albumin * 2.9 gm/dl (3.4-5.0); Anion Gap 15.8 mmol/L (6.8-13.8); BUN/Creatinine Ratio 35.5 (9.0-21.6); Bilirubin, Total 1.1 mg/dL (0.0-1.1); Ca. Corrected For Albumin 9.1 mg/dL (8.4-10.2); Calcium * 8.5 mg/dL (7.9-10.9); Carbon Dioxide 20.6 mmol/L (24-32.6); Potassium 6.4 mmol/L (3.4-4.6); Total Protein 6.4 gm/dL (6.2-8.2)
[2020-08-19 06:58] LABS: Lymphocyte 2 % (20-51); Monocyte 8 % (0-9); Neutrophil 90 % (42-75); Neutrophil # 26.6 K/mm3 (1.3-6.0)
[2020-08-19 06:59] LABS: Platelet Estimate Normal (NORMAL); RBC Morphology Normal (NORMAL)
[2020-08-19] MEDS ORDERED: NORMAL SALINE 1,000 ML IV ONE ×3 (07:26→08:21)
[2020-08-19] MEDS ORDERED: CALCIUM GLUCONATE 4.65 MEQ/10 ML VIAL IV ONE (07:56)
[2020-08-19] MEDS ORDERED: CIPROFLOXACIN HCL 500 MG TABLET PO SCH (08:00)
[2020-08-19] MEDS ORDERED: FLUCONAZOLE/SODIUM CHLORIDE 200 MG/100 ML BAG IV SCH (08:00)
[2020-08-19] MEDS ORDERED: INSULIN REGULAR, HUMAN 100 UNITS/ML VIAL IV ONE (08:07)
--- NOTE | 2020-08-19 08:20 | PN ---
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 He was treated with oxygen, non invasive respiratory support, IV dexamethasone and empiric antibiotics for possible secondary bacterial pneumonia. He was diagnosed with covid too late in the course for covid immunotherapy or antivirals. He has been improving and had been weaned successfully down to 4 Liters/min nc oxygen. He has not had a bowel movement for 4 days, and we have been treating that, so far without success, with laxatives. We have been increasing the doses. He has also been bothered with anxiety, moderately severe, only somewhat improved with hydroxyzine, which also caused sedation (at least at the 25 mg dose). He had been complaining of nocturia so we obtained a urinalysis, which was normal, culture is pending. His examination this morning at 6:15 was really unchanged from yesterday's. He has had no fever, chills or sweats. his pulse is similar to pulse rates since admission. Shortly after I examined him this morning, his nurse told me he had slowly collapsed to the floor while he was assisted by the nurse with ambulation. His BP was normal, and he had no other symptoms. His legs seemed to give out. After his nurse gave me that report, today's lab work report became available. He has had waxing and waning mildly elevated wbc counts since admission, but this morning his wbc count was about 29,000 with a left shift. His creatinine has been slightly elevated, also waxing and waning, with a somewhat poor oral fluid intake, but this morning his creatinine worsened and his potassium was 6.4. His liver enzymes were slightly elevated. The working diagnosis is sepsis with organ system dysfunction (increased creatinine and liver enzymes), source of infection unknown. He is already on antibiotics, so if this is sepsis, what we are giving hasn't prevented the event. We need to empirically change antibiotic coverage, including treatment for fungi, as he has been on both dexamethasone and IV antibiotics. We will obtain blood cultures, do a repeat cxr, and a plain abdominal xray. We will order additional labs, and make further decisions based on the results. To start, we will give fluid bolus and treat his high potassium. We will do an EKG looking for hyperkalemia related changes. For his moderately severe anxiety, we will switch his hydroxyzine to low dose alprazolam. We will increase his laxatives to further treat his constipation. We considered giving an enema, until this new information emerged this morning. Objective - Review of Systems Generalized/Overall Review: Reports: Weakness - legs gave way this morning EENTM: Reports: No Symptoms Reported Respiratory: Reports: Other - haider. Denies: Shortness of Breath Cardiac: Denies: Chest Pain, Edema, Syncope Abdominal: Reports: Constipation. Denies: Nausea, Abdominal Pain Genitourinary Symptoms: Reports: Frequency, Nocturia - urinalysis not consistent with infection, culture pending. sg 1.020 suggesting inadequate fluid intake. Musculoskeletal Complaints: Reports: No Symptoms Reported Neurological: Reports: Anxiety Skin: Reports: No Symptoms Reported Endocrine: Denies: Intolerance to Cold, Intolerance to Heat - Vitals Vitals: Last Vital Signs Temp 36.8 C 08/19/20 06:00 Pulse 111 H 08/19/20 06:24 Resp 22 H 08/19/20 06:24 BP 121/64 08/19/20 06:00 Pulse Ox 92 L 08/19/20 06:14 - Abnormal Lab Findings Abnormal Lab Findings: Abnormal Lab Results 08/18/20 08/18/20 08/19/20 Range/Units 07:15 11:15 06:15 WBC (4.0-10.5) K/mm3 RBC (4.7-6.0) M/mm3 Hgb (13.5-18.0) gm/dL Hct (42.0-52.0) % RDW (11.5-14.0) % Neutrophils % (Manual) (42-75) % Lymphocytes % (Manual) (20-51) % Neutrophils # (Manual) (1.3-6.0) K/mm3 Lymphocytes # (Manual) (1.5-3.5) k/mm3 Monocytes # (Manual) (0.0-1.0) k/mm3 PT (9.1-10.7) Seconds INR (Anticoag Therapy) (0.92-1.08) INR pCO2 22.0 L (35.0-48.0) mmHg pO2 41.0 L (83.0-108.0) mmHg HCO3 17.5 L (21.0-28.0) mmol/L Total CO2 17.5 L (19.0-24.0) mmol/L Base Excess -4.5 L (-2.0-3.0) mmol/L ABG pH 7.49 H (7.35-7.45) ABG O2 Sat (Measured) 81.0 L (94.0-98.0) % Sodium (132-142) mmol/L Potassium (3.4-4.6) mmol/L Carbon Dioxide (24-32.6) mmol/L Anion Gap (6.8-13.8) mmol/L BUN (6-23) mg/dL Creatinine (0.4-1.4) mg/dL Est GFR (Non-Af Amer) (60-130) mL/min BUN/Creatinine Ratio (9.0-21.6) Random Glucose (70-110) mg/dL AST (0-48) U/L ALT (19-67) U/L Albumin (3.4-5.0) gm/dl Lipase 750 H (73-393) U/L Urine Protein 15 H (NEGATIVE) mg/dL Urine Blood 50 H (NEGATIVE) /ul Urine Bacteria 1+ H (NONE) Coarse Granular Casts 5-10 H (NONE) /LPF Urine Comment Culture ordered L 08/19/20 08/19/20 08/19/20 Range/Units 06:31 06:31 06:31 WBC 29.5 H (4.0-10.5) K/mm3 RBC 3.92 L (4.7-6.0) M/mm3 Hgb 11.4 L (13.5-18.0) gm/dL Hct 34.9 L (42.0-52.0) % RDW 16.1 H (11.5-14.0) % Neutrophils % (Manual) 90 H (42-75) % Lymphocytes % (Manual) 2 L (20-51) % Neutrophils # (Manual) 26.6 H (1.3-6.0) K/mm3 Lymphocytes # (Manual) 0.6 L (1.5-3.5) k/mm3 Monocytes # (Manual) 2.4 H (0.0-1.0) k/mm3 PT 23.2 H (9.1-10.7) Seconds INR (Anticoag Therapy) 2.42 H (0.92-1.08) INR pCO2 (35.0-48.0) mmHg pO2 (83.0-108.0) mmHg HCO3 (21.0-28.0) mmol/L Total CO2 (19.0-24.0) mmol/L Base Excess (-2.0-3.0) mmol/L ABG pH (7.35-7.45) ABG O2 Sat (Measured) (94.0-98.0) % Sodium 130 L (132-142) mmol/L Potassium 6.4 H D (3.4-4.6) mmol/L Carbon Dioxide 20.6 L (24-32.6) mmol/L Anion Gap 15.8 H (6.8-13.8) mmol/L BUN 66 H (6-23) mg/dL Creatinine 1.86 H (0.4-1.4) mg/dL Est GFR (Non-Af Amer) 37 L (60-130) mL/min BUN/Creatinine Ratio 35.5 H (9.0-21.6) Random Glucose 198 H D (70-110) mg/dL AST 96 H (0-48) U/L ALT 162 H (19-67) U/L Albumin 2.9 L (3.4-5.0) gm/dl Lipase (73-393) U/L Urine Protein (NEGATIVE) mg/dL Urine Blood (NEGATIVE) /ul Urine Bacteria (NONE) Coarse Granular Casts (NONE) /LPF Urine Comment - Exam Constitutional: Present: Alert, Oriented x3, Cooperative, Well developed, No distress, Other - thin, Elderly ENT Exam: Present: normal ENT inspection, other - hearing slightly off a chronic problem not documented thus far this admission Neck: Present: normal inspection. Absent: lymphadenopathy (R), lymphadenopathy (L), thyromegaly Breasts: Present: Other - male Respiratory: Present: lungs clear, no respiratory distress, decreased breath sounds Cardiovascular/Chest: Present: regular rate, rhythm, no edema, no gallop, no JVD, tachycardia - mild Abdomen: Present: Normal bowel sounds, soft, nontender, nondistended, no hepatospenomegaly, no masses /Rectal: Present: Exam deferred Extremity: Present: normal capillary refill Skin Exam: Present: normal color, warm/dry, no cyanosis Lymphatic: Present: no adenopathy Neurologic: Present: other - mild memory problems Appearance: Present: appropriate appearance, neat, impaired recent memory Eye contact: Present: cooperative, good eye contact, normal speech Thoughts: Present: normal thought pattern Assessment/Plan - Problems/Diagnosis (1) Sepsis Problem: Acute Qualifiers: Sepsis type: sepsis due to unspecified organism Sepsis acute organ dysfunction status: with acute organ dysfunction Severe sepsis acute organ dysfunction type: acute renal failure Acute renal failure type: unspecified Severe sepsis shock status: without septic shock Qualified Code(s): A41.9 - Sepsis, unspecified organism; R65.20 - Severe sepsis without septic shock; N17.9 - Acute kidney failure, unspecified Narrative: source unknown. will switch antibiotics empirically for organisms which have not been covered by current antibiotics. will hydrate and monitor closely. worsening kidney function slightly elevated liver enzymes. cultures cxr repeat abdominal plain film (2) Renal failure (ARF), acute on chronic Problem: Acute Narrative: possibly related to sepsis intravascular dehydration may play a role. (3) Hyperkalemia Problem: Acute Narrative: may be due to acute on chronic renal failure. may be due to sepsis. ekg hydration dell exylate iv calcium gluconate\ iv insulin in D10W monitor closely (4) Nocturia Problem: Acute (5) Constipation Problem: Acute (6) Atrial fibrillation with RVR Problem: Acute (7) COVID-19 Problem: Acute (8) Sepsis Problem: Resolved (9) Pneumonia Problem: Acute Qualifiers: Laterality: bilateral (10) Acute respiratory failure with hypoxemia Problem: Acute (11) Hypocarbia Problem: Acute (12) Tachycardia Problem: Resolved (13) Coumadin toxicity Problem: Acute Qualifiers: Encounter type: initial encounter Injury intent: accidental or unintentional Qualified Code(s): T45.511A - Poisoning by anticoagulants, accidental (unintentional), initial encounter (14) Anemia Problem: Acute Qualifiers: Anemia type: unspecified type Qualified Code(s): D64.9 - Anemia, unspecified (15) Malnutrition Problem: Chronic Qualifiers: Malnutrition type: protein-calorie malnutrition Protein-calorie malnutrition severity: mild Qualified Code(s): E44.1 - Mild protein-calorie malnutrition (16) Elevated lactic acid level Problem: Resolved (17) Elevated troponin Problem: Resolved (18) Neutrophilic leukocytosis Problem: Acute (19) Essential hypertension Problem: Chronic (20) Oxygen desaturation during sleep Problem: Chronic
[2020-08-19] MEDS ORDERED: WATER IV ONE (08:30)
[2020-08-19] MEDS ORDERED: DEXTROSE 10% IV ONE (08:30)
[2020-08-19] MEDS ORDERED: HUMAN IV ONE (08:30)
[2020-08-19] MEDS ORDERED: INSULIN REGULAR IV ONE (08:30)
--- NOTE | 2020-08-19 09:21 | PN ---
Progess Note - Interim Date: 08/19/20 Time: 09:20 Narrative: 08/19/20 09:20 cxr shows minimal improvement in infiltrates, but nothing new. given only minimal improvement, I think we should empirically add Azithromycin to cover atypicals. abdominal film unremarkable.
[2020-08-19] MEDS: FINASTERIDE 5 MG TABLET PO SCH (09:23)
[2020-08-19] MEDS: DILTIAZEM HCL 60 MG TABLET PO SCH (09:23)
[2020-08-19] MEDS: DOCUSATE SODIUM 100 MG CAPSULE PO SCH ×2 (09:23→20:24)
[2020-08-19] MEDS: MEROPENEM 1 GM in NORMAL SALINE 100 ML IV SCH ×2 (09:23→20:23)
[2020-08-19] MEDS: TAMSULOSIN HCL 0.4 MG CAP.SR.24H PO SCH ×2 (09:23→20:24)
[2020-08-19] MEDS: AMIODARONE HCL 200 MG TABLET PO SCH (09:23)
[2020-08-19] MEDS: MULTIVITAMINS 1 CAP CAPSULE PO SCH (09:23)
[2020-08-19] MEDS: SENNOSIDES/DOCUSATE SODIUM 1 TAB TABLET PO SCH ×3 (09:24→16:40)
[2020-08-19] MEDS: MAGNESIUM HYDROXIDE 30 ML UDC PO SCH ×3 (09:24→16:40)
[2020-08-19] MEDS: SACCHAROMYCES BOULARDII 250 MG CAPSULE PO SCH ×2 (09:24→20:25)
[2020-08-19] MEDS: FLUTICASONE PROPIONATE 120 SPRAY INHALER NS SCH (09:24)
[2020-08-19] MEDS: ALPRAZolam 0.25 MG TABLET PO SCH ×2 (09:26→16:40)
[2020-08-19] MEDS: SODIUM POLYSTYRENE SULFON/SORB 15 G/60 ML ORAL.SUSP PO SCH ×2 (09:26→12:38)
[2020-08-19] MEDS ORDERED: AZITHROMYCIN 500 MG in DEXTROSE 5 % IN WATER 250 ML IV SCH ×2 (09:30)
[2020-08-19] MEDS: BISACODYL 5 MG TABLET.DR PO SCH ×3 (11:25→16:41)
--- NOTE | 2020-08-19 11:43 | PN ---
Progess Note - Interim Date: 08/19/20 Time: 11:41 Narrative: 08/19/20 11:41 pO2 somewhat lower than usual. we increase increase O2 supply and monitor ABGs. EKG from this morning shows new Mobitz II. Possibly related to high potassium, are treating. Possibly due to medication, will stop diltiazem and amiodarone. Possibly due to ischemic heart disease. Will check troponin.
[2020-08-19 13:24] LABS: Anion Gap 13.8 mmol/L (6.8-13.8); BUN/Creatinine Ratio 31.5 (9.0-21.6); Calcium * 8.2 mg/dL (7.9-10.9); Estimated Creat Clear 23.8; Potassium 5.8 mmol/L (3.4-4.6)
[2020-08-19 13:30] LABS: Troponin I 0.029 ng/mL (0.00-0.10)
[2020-08-19] MEDS ORDERED: NORMAL SALINE 1,000 ML IV PRN (13:36)
--- NOTE | 2020-08-19 14:02 | PN ---
Progess Note - Interim Date: 08/19/20 Time: 14:01 Narrative: 08/19/20 14:02 lactic acid is still 2.4. will continue IV fluids but at a lower rate and recheck lactic acid.
--- NOTE | 2020-08-19 14:33 | PN ---
Progesarnav Note - Interim Date: 08/19/20 Time: 14:32 Narrative: 08/19/20 14:32 called lab. potassium now 5.7 sodium 129 will cut back on the IV rate a little, but continue it because his lactic acid stayed the same at 2.4 we will continue to follow labs.
--- NOTE | 2020-08-19 14:51 | PN ---
Progess Note - Interim Date: 08/19/20 Time: 14:51 Narrative: 08/19/20 14:51 troponin normal. creatinine up a little. will continue with fluids for now and continue to monitor chemistries.
[2020-08-19] MEDS ORDERED: WARFARIN SODIUM 2 MG TABLET PO SCH (17:00)
[2020-08-19] MEDS ORDERED: SODIUM POLYSTYRENE SULFON/SORB 15 G/60 ML ORAL.SUSP PO SCH (17:00)
[2020-08-19] MEDS ORDERED: NYSTATIN 30 APPL TUBE TP ONE (21:28)
[2020-08-20] MEDS: ALPRAZolam 0.25 MG TABLET PO SCH (00:16)
[2020-08-20] MEDS ORDERED: NORMAL SALINE 1,000 ML IV ONE (03:27)
[2020-08-20 05:54] VITALS: BP 77/44
--- NOTE | 2020-08-20 12:09 | DS ---
Discharge Summary - Provider Primary Care Provider: Frantz Cardenas - Date and Time Date of : 08/20/20 Time of : 04:32 - Diagnosis/Cause of (1) Septic shock Problems: Acute (2) Sepsis Problems: Acute (3) COVID-19 Problems: Acute (4) Pneumonia Problems: Acute (5) Acute respiratory failure with hypoxemia Problems: Acute (6) Renal failure (ARF), acute on chronic Problems: Acute (7) Hyperkalemia Problems: Acute (8) Heart block AV second degree Problems: Acute (9) Atrial fibrillation with RVR Problems: Acute (10) Nocturia Problems: Acute (11) Constipation Problems: Acute (12) Sepsis Problems: Resolved (13) Hypocarbia Problems: Acute (14) Tachycardia Problems: Resolved (15) Coumadin toxicity Problems: Acute (16) Anemia Problems: Acute (17) Malnutrition Problems: Chronic (18) Elevated lactic acid level Problems: Resolved (19) Elevated troponin Problems: Resolved (20) Neutrophilic leukocytosis Problems: Acute (21) Essential hypertension Problems: Chronic (22) Oxygen desaturation during sleep Problems: Chronic - Summary Details (narrative): Progress Note Patient Name: Dg Arroyo Date of : 1935 Patient Status: Inpatient Attending Provider: Frantz Cardenas Date: 08/19/20 08:09 Initialization Date: 08/19/20 08:09 Subjective - Date and Time Seen Date: 08/19/20 Time: 06:15 Subjective Narrative: This was an 85 y/o man with end stage emphysema, 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 He was treated with oxygen, non invasive respiratory support, IV dexamethasone and empiric antibiotics for possible secondary bacterial pneumonia. He was diagnosed with covid too late in the course for covid immunotherapy or antivirals. He had been improving and had been weaned successfully down to 4 Liters/min nc oxygen and was stable on clinical exam by me early yesterday morning. He had had no fever, chills or sweats. His pulse rate was similar to pulse rates since admission. Shortly after I examined him yesterday morning, his nurse told me he had slowly collapsed to the floor while he was assisted by the nurse with ambulation. His BP was normal, and he had no other symptoms. His legs seemed to give out. After his nurse gave me that report, his lab work report became available. He had had waxing and waning mildly elevated wbc counts since admission, but yesterday morning his wbc count was about 29,000 with a left shift. His creatinine had been slightly elevated, also waxing and waning, with a somewhat poor oral fluid intake, but yesterday morning his creatinine had worsened and his potassium was 6.4. His liver enzymes were slightly elevated. His lactic acid level was 2.4. His repeat lactic acid level was still 2.4 in spite of fluid bolus followed by fluid infusion. His ABGs had worsened and an EKG showed 2nd degree heart block which was new. Possible causes included high potassium and/or diltiazem and/or amiodarone. His troponin was normal. The new working diagnosis was sepsis with organ system dysfunction (increased creatinine and liver enzymes), source of infection unknown. He was already on antibiotics, so if this was bacterial and/or fungal sepsis, what we had been giving hadn't prevented the event. For this reason we empirically changed antibiotic coverage, including treatment for fungi, We also stopped his dexamethasone which we were giving for his covid pneumonia. We obtained blood cultures and his urinalysis from two days ago was unremarkable with final culture still pending. We repeated a cxr which showed slight improvement in his bilateral pneumonia, and obtained a plain abdominal xray, which was unremarkable. We treated him with a fluid bolus and subsequent continued IV fluids. We agressively treated his high potassium and his repeat level yesterday afternoon was much lower at 5.8. We increased his oxygen and eventually resumed his CPAP which improved his blood gasses. We were prepared for external pacing should he develop complete heart block. In retrospect, his sepsis with shock was most likely due to Covid, although we were also treating him for secondary bacterial pneumonia and yesterday added treatment for possible fungal infection. Not infrequently the pattern with our hospital covid patients is an initial improvement followed by a sudden unexpected deterioration to . He did not wish to be intubated, so our efforts at resuscitation did not include intubation. BP remained stable without pressors until about 2300 the night prior to . Procedures Performed: none - Additional Data Confirmation of as documented by pronouncing clinician: no pulse, no respirations, no heart sounds Family: contacted - by phone Additional persons at bedside: other - two nurses Practitioner(Attending/PCP) notified: Yes - real estate consultant physician notified Was code activated: Yes Autopsy requested: No Business Process Engineer notified: No Advance Directives: Yes Hospice patient: No
== END 2020-08-20 04:32 | disposition expired | DRG 871 ==
LOC: ER 17:21 → MS 19:53 → SCU 08-11 13:05
PROVIDERS: ADMIT Family Medicine; ATTEND Allergy & Immunology
DX: J12.82 Pneumonia due to coronavirus disease 2019; D64.9 Anemia, unspecified; N17.9 Acute kidney failure, unspecified; I48.0 Paroxysmal atrial fibrillation; Z99.81 Dependence on supplemental oxygen; Z68.27 Body mass index [BMI] 27.0-27.9, adult; R07.9 Chest pain, unspecified; U07.1 COVID-19; T45.511A Poisoning by anticoagulants, accidental (unintentional), initial encounter; J43.9 Emphysema, unspecified; A41.9 Sepsis, unspecified organism; E44.1 Mild protein-calorie malnutrition; R65.21 Severe sepsis with septic shock; N18.30 Chronic kidney disease, stage 3 unspecified; J96.01 Acute respiratory failure with hypoxia; I12.9 Hypertensive chronic kidney disease with stage 1 through stage 4 chronic kidney disease, or unspecified chronic kidney disease; I44.1 Atrioventricular block, second degree; E78.5 Hyperlipidemia, unspecified; J96.02 Acute respiratory failure with hypercapnia